=== PATIENT | male | born 1990 | race American Indian/Alaskan Native ===

== ENCOUNTER 2018-01-11 13:42 | Emergency (ER) | payer SELFPAY ==
[2018-01-11 13:48] VITALS: BP 125/73
--- NOTE | 2018-01-11 15:04 | Emergency Department Report ---
Chief Complaint: Urogenital-Male Stated Complaint: STD CHECK Time Seen by Provider: 01/11/18 14:28 - HPI History of Present Illness: Patient is a 27-year-old -[place] male who is presenting with exposure to STD. Patient states his was diagnosed with chlamydia. Patient has no symptoms himself at this time. The patient just wanted to get a checkup. - ROS Review of Systems: All systems negative except for those in HPI - Exam Vital Signs: Vital Signs 01/11/18 13:45 Temperature 98.0 F Pulse Rate 80 Respiratory 16 Rate Blood Pressure 125/73 O2 Sat by Pulse 99 Oximetry Physical Exam: Abdomen soft nontender MSE screening note: Focused history and physical exam performed. Due to findings the following was ordered: ED Disposition for MSE Clinical Impression: STD exposure Disposition: MED SCREENING EXAM-LEFT Condition: Stable Referrals: PRIMARY CARE, [Primary Care Provider] - 3-5 Days
== END 2018-01-11 14:50 | disposition left against medical advice (07) ==
LOC: ED 13:42
DX: Z20.2 Contact with and (suspected) exposure to infections with a predominantly sexual mode of transmission (principal); J45.909 Unspecified asthma, uncomplicated; E11.9 Type 2 diabetes mellitus without complications; Z53.21 Procedure and treatment not carried out due to patient leaving prior to being seen by health care provider

== ENCOUNTER 2018-10-03 08:39 | Inpatient (IN) | payer SELFPAY ==
[2018-10-03 09:26] LABS: BUN/Creatinine Ratio 12; Basophils % (Auto) 0.2 % (0.0-1.8); Blood Urea Nitrogen 15 mg/dL (9-20); Hematocrit 45.7 % (35.5-45.6); Hemolysis Index 6; Lymphocytes # (Auto) 0.8 K/mm3 (1.2-5.4); Lymphocytes % (Auto) 9.1 % (13.4-35.0); Mean Corpuscular HGB Conc 33 % (32-34); Mean Corpuscular Volume 92 fl (84-94); Monocytes # (Auto) 0.5 K/mm3 (0.0-0.8); Monocytes % (Auto) 5.8 % (0.0-7.3); Platelet Count 243 K/mm3 (140-440); Red Blood Count 4.99 M/mm3 (3.65-5.03); Red Cell Distribution Width 12.5 % (13.2-15.2)
[2018-10-03] MEDS ORDERED: D50W (25GM) Syringe IV PRN (09:27)
[2018-10-03] MEDS ORDERED: NACL 0.9% 1000 ML 1,000 ML IV ONE ×2 (09:28)
[2018-10-03] MEDS ORDERED: NACL 0.9% 1000 ML 1,000 ML ONE (09:28)
--- NOTE | 2018-10-03 09:33 | Emergency Department Report ---
ED General Adult HPI - General Chief complaint: Nausea/Vomiting/Diarrhea Stated complaint: HIGH BLOOD SUGAR Time Seen by Provider: 10/03/18 09:03 Source: patient Mode of arrival: Ambulatory Limitations: No Limitations - History of Present Illness Initial comments: Patient is 28 years old male with history of type 1 diabetes on insulin. Patient is noncompliant with his medication. Patient presented to the emergency room complaining of nausea vomiting for the last 3 days. Patient denied any chest pain, abdominal pain, diarrhea or urinary symptoms. - Related Data Home Medications Medication Instructions Recorded Confirmed Last Taken Insulin Glargine,Hum.rec.anlog 20 units SUB-Q HS 10/03/18 10/03/18 Unknown [Lantus] Insulin Lispro [HumaLOG VIAL] 10 units SUB-Q AC 10/03/18 10/03/18 Unknown Allergies Allergy/AdvReac Type Severity Reaction Status Date / Time metoclopramide [From Reglan] AdvReac panic Verified 10/03/18 11:53 attack ED Review of Systems ROS: Stated complaint: HIGH BLOOD SUGAR Other details as noted in HPI Comment: All other systems reviewed and negative Constitutional: denies: chills, fever Respiratory: denies: cough, orthopnea Cardiovascular: denies: chest pain, palpitations, dyspnea on exertion Gastrointestinal: nausea, vomiting. denies: abdominal pain, diarrhea, cons tipation, hematemesis, melena, hematochezia Musculoskeletal: denies: back pain Neurological: denies: headache, weakness, numbness, paresthesias, confusion, abnormal gait ED Past Medical Hx - Past Medical History Hx Diabetes: Yes Hx Asthma: Yes - Social History Smoking Status: Never Smoker Substance Use Type: None - Medications Home Medications: Home Medications Medication Instructions Recorded Confirmed Last Taken Type Insulin Glargine,Hum.rec.anlog 20 units SUB-Q HS 10/03/18 10/03/18 Unknown History [Lantus] Insulin Lispro [HumaLOG VIAL] 10 units SUB-Q AC 10/03/18 10/03/18 Unknown History ED Physical Exam - General Limitations: No Limitations General appearance: alert, in no apparent distress - Head Head exam: Present: atraumatic, normocephalic, normal inspection - Eye Eye exam: Present: normal appearance - ENT ENT exam: Present: mucous membranes dry - Neck Neck exam: Present: normal inspection, full ROM. Absent: tenderness, meningismus, lymphadenopathy, thyromegaly - Respiratory Respiratory exam: Present: normal lung sounds bilaterally - Cardiovascular Cardiovascular Exam: Present: regular rate, normal rhythm, normal heart sounds - GI/Abdominal GI/Abdominal exam: Present: soft, normal bowel sounds. Absent: distended, tenderness, guarding, rebound, rigid, organomegaly, mass, bruit, pulsatile mass, hernia - Extremities Exam Extremities exam: Present: normal inspection, full ROM, normal capillary refill. Absent: pedal edema, calf tenderness - Back Exam Back exam: Present: normal inspection, full ROM. Absent: tenderness, CVA tenderness (R), CVA tenderness (L), muscle spasm, paraspinal tenderness, vertebral tenderness - Neurological Exam Neurological exam: Present: alert, oriented X3, CN II-XII intact, normal gait, reflexes normal - Skin Skin exam: Present: warm, intact, normal color ED Course Vital Signs 10/03/18 10/03/18 10/03/18 08:48 09:05 09:15 Temperature 97.3 F L Pulse Rate 101 H 95 H Respiratory 18 17 Rate Blood Pressure 127/83 118/63 O2 Sat by Pulse 100 97 Oximetry 10/03/18 10/03/18 10/03/18 09:27 09:30 09:45 Temperature 97.5 F L Pulse Rate 92 H 97 H Respiratory 16 14 Rate Blood Pressure 126/66 103/57 O2 Sat by Pulse 97 77 L Oximetry 10/03/18 10/03/18 10/03/18 10:00 10:15 10:30 Temperature Pulse Rate 94 H 99 H 100 H Respiratory 14 21 19 Rate Blood Pressure 115/64 109/52 117/59 O2 Sat by Pulse 100 100 100 Oximetry 10/03/18 10/03/18 10/03/18 10:45 11:00 11:15 Temperature 98 F Pulse Rate 103 H 104 H 107 H Respiratory 16 16 15 Rate Blood Pressure 107/54 108/51 103/48 O2 Sat by Pulse 99 99 97 Oximetry 10/03/18 10/03/18 10/03/18 11:30 11:50 12:00 Temperature Pulse Rate 100 H 95 H 90 Respiratory 22 19 16 Rate Blood Pressure 109/52 97/53 97/53 O2 Sat by Pulse 98 98 100 Oximetry 01/23/19 01/23/19 01/23/19 12:10 12:20 12:30 Temperature Pulse Rate 116 H 95 H 98 H Respiratory 19 20 15 Rate Blood Pressure 130/66 130/66 130/66 O2 Sat by Pulse 98 99 99 Oximetry ED Medical Decision Making - Lab Data Result diagrams: 10/03/18 08:58 10/03/18 13:44 - Medical Decision Making Patient is 28 years old male with history of type 1 diabetes on insulin. Patient is noncompliant with his medication. Patient presented to the emergency room complaining of nausea vomiting for the last 3 days. Patient denied any chest pain, abdominal pain, diarrhea or urinary symptoms. Patient found to be in a DKA with anion gap of 37. Patient received normal saline and started on insulin drip. I discussed the patient was . He agreed to admit the patient to medical service. Critical Care Time: Yes Critical care time in (mins) excluding proc time.: 30 Critical care attestation.: If time is entered above; I have spent that time in minutes in the direct care of this critically ill patient, excluding procedure time. ED Disposition Clinical Impression: DKA (diabetic ketoacidoses) Disposition: DC-09 OP ADMIT IP TO THIS HOSP Is pt being admited?: Yes Condition: Stable
[2018-10-03] MEDS ORDERED: ZOFRAN ONE ×2 (09:37→11:09)
[2018-10-03] MEDS ORDERED: ZOFRAN IV ONE ×2 (09:41→10:54)
[2018-10-03 10:26] LABS: Albumin 4.9 g/dL (3.9-5); Bilirubin,Direct 0.2 mg/dL (0-0.2)
[2018-10-03] MEDS ORDERED: REGLAN ONE (10:46)
--- NOTE | 2018-10-03 10:56 | XRay Report ---
AP CHEST :10/03/18 08:39:00 CLINICAL: DKA COMPARISON:02/08/15 FINDINGS: Normal heart and pulmonary vasculature. The lungs are mildly hyperinflated. No airspace disease or pleural effusion. The bones and soft tissues are normal.No tubes or lines. IMPRESSION: Pulmonary hyperinflation and otherwise normal. No pneumonia.
[2018-10-03] MEDS: HumuLIN R 100 UNITS in NACL 0.9% 99 ML IV SCH ×2 (11:14→22:20)
[2018-10-03 11:20] LABS: Bilirubin,Urine NEG (Negative); Blood,Urine NEG (Negative); Color,Urine Straw (Yellow); Mucus,Urine FEW /HPF; Protein,Urine <15 mg/dL mg/dL (Negative); Urobilinogen,Urine < 2.0 mg/dL (<2.0)
[2018-10-03] MEDS ORDERED: TYLENOL PO PRN (12:32)
[2018-10-03] MEDS ORDERED: SODIUM CHLORIDE FLUSH SYRINGE 10 ML IV PRN (12:32)
--- NOTE | 2018-10-03 12:35 | History and Physical Report ---
History of Present Illness Date of admission: 10/03/18 09:48 Chief complaint: High blood glucose History of present illness: 28-year-old man with history of type 1 diabetes. He presents with nausea vomiting and elevated glucose. not able to tolerate anything by mouth, therefore unable to take his insulin, has not able to stay hydrated with water as he is nauseous. He denies nonadherence to his medications, he states that he takes his insulins regularly. He denies dysuria, cough, fevers or chills Past Medical History: diabetes Past Surgical History: No surgical history Social history: lives with family. denies: smoking, alcohol abuse Family history: diabetes Medications and Allergies Allergies Allergy/AdvReac Type Severity Reaction Status Date / Time metoclopramide [From Reglan] AdvReac panic Verified 10/03/18 11:53 attack Home Medications Medication Instructions Recorded Confirmed Last Taken Type Insulin Glargine,Hum.rec.anlog 20 units SUB-Q HS 10/03/18 10/03/18 Unknown History [Lantus] Insulin Lispro [HumaLOG VIAL] 10 units SUB-Q AC 10/03/18 10/03/18 Unknown History Active Meds: Active Medications Dextrose (D50w (25gm) Syringe) 0 ml IV PRN PRN PRN Reason: Hypoglycemia Insulin Human Regular 100 (units/ Sodium Chloride) 100 mls @ 1 mls/hr IV TITR DARVIN; Protocol Last Admin: 10/03/18 11:14 Dose: 7 units/hr, 7 mls/hr Documented by: Review of Systems All systems: negative Constitutional: fatigue Eyes: bilateral: blurred vision Ears, nose, mouth and throat: no ear pain Cardiovascular: no chest pain Respiratory: no cough Gastrointestinal: nausea, vomiting Genitourinary Male: no dysuria Rectal: no pain Musculoskeletal: no neck stiffness Integumentary: no rash Neurological: no head injury Psychiatric: no anxiety Endocrine: no cold intolerance Hematologic/Lymphatic: no easy bruising Allergic/Immunologic: no urticaria Exam - Constitutional Vitals: Temp Pulse Resp BP Pulse Ox 98 F 100 H 22 109/52 98 10/03/18 11:00 10/03/18 11:30 10/03/18 11:30 10/03/18 11:30 10/03/18 11:30 General appearance: Present: mild distress - EENT Eyes: Present: PERRL ENT: hearing intact, clear oral mucosa (dry) - Neck Neck: Present: supple, normal ROM - Respiratory Respiratory effort: normal Respiratory: bilateral: CTA - Cardiovascular Heart Sounds: Present: S1 & S2. Absent: rub, click - Extremities Extremities: pulses symmetrical, No edema Peripheral Pulses: within normal limits - Abdominal General gastrointestinal: Present: soft, non-tender, non-distended, normal bowel sounds Male genitourinary: Present: normal - Integumentary Integumentary: Present: clear, warm, dry - Musculoskeletal Musculoskeletal: gait normal, strength equal bilaterally - Psychiatric Psychiatric: appropriate mood/affect, intact judgment & insight - Neurologic Neurologic: CNII-XII intact, moves all extremities Results - Labs CBC & Chem 7: 10/03/18 08:58 10/04/18 09:42 Labs: Laboratory Last Values WBC 9.2 K/mm3 (4.5-11.0) 10/03/18 08:58 RBC 4.99 M/mm3 (3.65-5.03) 10/03/18 08:58 Hgb 15.0 gm/dl (11.8-15.2) 10/03/18 08:58 Hct 45.7 % (35.5-45.6) H 10/03/18 08:58 MCV 92 fl (84-94) 10/03/18 08:58 MCH 30 pg (28-32) 10/03/18 08:58 MCHC 33 % (32-34) 10/03/18 08:58 RDW 12.5 % (13.2-15.2) L 10/03/18 08:58 Plt Count 243 K/mm3 (140-440) 10/03/18 08:58 Lymph % (Auto) 9.1 % (13.4-35.0) L 10/03/18 08:58 [place] % (Auto) 5.8 % (0.0-7.3) 10/03/18 08:58 Eos % (Auto) 0.0 % (0.0-4.3) 10/03/18 08:58 Baso % (Auto) 0.2 % (0.0-1.8) 10/03/18 08:58 Lymph # 0.8 K/mm3 (1.2-5.4) L 10/03/18 08:58 [place] # 0.5 K/mm3 (0.0-0.8) 10/03/18 08:58 Eos # 0.0 K/mm3 (0.0-0.4) 10/03/18 08:58 Baso # 0.0 K/mm3 (0.0-0.1) 10/03/18 08:58 Seg Neutrophils % 84.9 % (40.0-70.0) H 10/03/18 08:58 Seg Neutrophils # 7.8 K/mm3 (1.8-7.7) H 10/03/18 08:58 VBG pH 7.235 (7.320-7.420) L 10/03/18 08:58 Sodium 134 mmol/L (137-145) L 10/03/18 08:58 Potassium 4.7 mmol/L (3.6-5.0) 10/03/18 08:58 Chloride 90.2 mmol/L (98-107) L 10/03/18 08:58 Carbon Dioxide 12 mmol/L (22-30) L 10/03/18 08:58 Anion Gap 37 mmol/L 10/03/18 08:58 BUN 15 mg/dL (9-20) 10/03/18 08:58 Creatinine 1.3 mg/dL (0.8-1.5) 10/03/18 08:58 Estimated GFR > 60 ml/min 10/03/18 08:58 BUN/Creatinine Ratio 12 % 10/03/18 08:58 Glucose 471 mg/dL (75-100) H 10/03/18 08:58 POC Glucose 393 (70-105) H 10/03/18 10:51 Calcium 10.0 mg/dL (8.4-10.2) 10/03/18 08:58 Phosphorus 5.20 mg/dL (2.5-4.5) H 10/03/18 08:58 Magnesium 1.70 mg/dL (1.7-2.3) 10/03/18 08:58 Total Bilirubin 0.70 mg/dL (0.1-1.2) 10/03/18 08:58 Direct Bilirubin 0.2 mg/dL (0-0.2) 10/03/18 08:58 Indirect Bilirubin 0.5 mg/dL 10/03/18 08:58 AST 14 units/L (5-40) 10/03/18 08:58 ALT 19 units/L (7-56) 10/03/18 08:58 Alkaline Phosphatase 86 units/L (35-129) 10/03/18 08:58 Total Protein 8.4 g/dL (6.3-8.2) H 10/03/18 08:58 Albumin 4.9 g/dL (3.9-5) 10/03/18 08:58 Albumin/Globulin Ratio 1.4 % 10/03/18 08:58 Urine Color Straw (Yellow) 10/03/18 10:55 Urine Turbidity Clear (Clear) 10/03/18 10:55 Urine pH 5.0 (5.0-7.0) 10/03/18 10:55 Ur Specific [place] 1.024 (1.003-1.030) 10/03/18 10:55 Urine Protein <15 mg/dl mg/dL (Negative) 10/03/18 10:55 Urine Glucose (UA) >=500 mg/dL (Negative) 10/03/18 10:55 Urine Ketones 80 mg/dL (Negative) 10/03/18 10:55 Urine Blood Neg (Negative) 10/03/18 10:55 Urine Nitrite Neg (Negative) 10/03/18 10:55 Urine Bilirubin Neg (Negative) 10/03/18 10:55 Urine Urobilinogen < 2.0 mg/dL (<2.0) 10/03/18 10:55 Ur Leukocyte Esterase Neg (Negative) 10/03/18 10:55 Urine WBC (Auto) 2.0 /HPF (0.0-6.0) 10/03/18 10:55 Urine RBC (Auto) 3.0 /HPF (0.0-6.0) 10/03/18 10:55 Urine Mucus Few /HPF 10/03/18 10:55 - Imaging and Cardiology Chest x-ray: image reviewed (no acute findings) Assessment and Plan Assessment and plan: 28-year-old man with type 1 diabetes, presents with nausea vomiting and elevated glucose Problems DKA Type 1 diabetes Intractable nausea and vomiting Plan Admit to ICU, insulin drip, IV fluids -Antiemetics as needed, obtain A1c -DVT prophylaxis chemical Critical care time 35 minutes
[2018-10-03 14:18] LABS: BUN/Creatinine Ratio 13; Blood Urea Nitrogen 17 mg/dL (9-20); Calcium 9.3 mg/dL (8.4-10.2); Hemolysis Index 22
[2018-10-03 15:27] LABS: BUN/Creatinine Ratio 13; Blood Urea Nitrogen 16 mg/dL (9-20); Calcium 9.3 mg/dL (8.4-10.2); Hemolysis Index 5
[2018-10-03] MEDS ORDERED: NACL 0.9% 1000 ML 1,000 ML IV SCH (16:00)
[2018-10-03] MEDS ORDERED: D5W/0.45% NACL/KCL 20 MEQ 20 MEQ/1,000 ML BAG IV SCH (17:00)
[2018-10-03 18:14] LABS: BUN/Creatinine Ratio 12; Blood Urea Nitrogen 16 mg/dL (9-20); Calcium 9.4 mg/dL (8.4-10.2); Hemolysis Index 25
[2018-10-03] MEDS: ZOFRAN IV PRN (18:18)
[2018-10-03] MEDS: D5/0.45NS 1,000 ML IV SCH (18:59)
[2018-10-03] MEDS: LOVENOX SUB-Q SCH (21:49)
[2018-10-04] MEDS: D5/0.45NS 1,000 ML IV SCH (01:28)
[2018-10-04] MEDS: ZOFRAN IV PRN ×3 (01:35→21:52)
[2018-10-04 03:52] LABS: BUN/Creatinine Ratio 11; Blood Urea Nitrogen 12 mg/dL (9-20); Calcium 9.8 mg/dL (8.4-10.2); Hemolysis Index 6
[2018-10-04 08:06] LABS: BUN/Creatinine Ratio 9; Blood Urea Nitrogen 11 mg/dL (9-20); Calcium 9.7 mg/dL (8.4-10.2); Hemolysis Index 15
[2018-10-04] MEDS ORDERED: LANTUS SUB-Q STA (09:52)
[2018-10-04] MEDS: SODIUM CHLORIDE FLUSH SYRINGE 10 ML IV SCH ×3 (09:54→21:49)
[2018-10-04 10:45] LABS: BUN/Creatinine Ratio 10; Blood Urea Nitrogen 11 mg/dL (9-20); Calcium 9.5 mg/dL (8.4-10.2); Hemolysis Index 5
--- NOTE | 2018-10-04 12:04 | Progress Note ---
Assessment and Plan Assessment and plan: 28-year-old man with type 1 diabetes, presents with nausea vomiting and elevated glucose Problems DKA Type 1 diabetes Intractable nausea and vomiting Plan Admit to ICU, insulin drip, IV fluids; transition to sq insulins -Antiemetics as needed, a1c 10.4 -DVT prophylaxis chemical - patient claiming he takes clonipin for PTSD, checked [employer] profile, is not on any controlled substances, called his PCP left a message with the coordinator, waiting to hear back Critical care time 35 minutes History Interval history: Review of systems Constitutional: No fevers, no malaise, no joint pains CVS: No chest pain, no orthopnea, no dyspnea on exertion, no pedal edema GI: c/o nausea and vomiting Respiratory: No shortness of breath, no wheezing, no coughing Hospitalist Physical - Physical exam Narrative exam: General.: Appears well, no distress, nontoxic HEENT: Moist mucous membranes, extraocular muscles intact, no lymphadenopathy Neck: supple Cardiac: S1-S2 heard Lungs: clear to auscultation bilaterally Abdomen: soft , nontender, nondistended, bowel sounds positive Extremities: no edema clubbing or cyanosis Skin: no rash or lesions Neurologic: no gross focal deficits Psych: calm, and cooperative - Constitutional Vitals: Temp Pulse Resp BP Pulse Ox 97 F L 91 H 15 94/55 98 10/04/18 08:00 10/04/18 09:10 10/04/18 09:10 10/04/18 09:10 10/04/18 09:10 General appearance: Present: mild distress Results - Labs CBC & Chem 7: 10/03/18 08:58 10/04/18 09:42 Labs: Laboratory Last Values WBC 9.2 K/mm3 (4.5-11.0) 10/03/18 08:58 RBC 4.99 M/mm3 (3.65-5.03) 10/03/18 08:58 Hgb 15.0 gm/dl (11.8-15.2) 10/03/18 08:58 Hct 45.7 % (35.5-45.6) H 10/03/18 08:58 MCV 92 fl (84-94) 10/03/18 08:58 MCH 30 pg (28-32) 10/03/18 08:58 MCHC 33 % (32-34) 10/03/18 08:58 RDW 12.5 % (13.2-15.2) L 10/03/18 08:58 Plt Count 243 K/mm3 (140-440) 10/03/18 08:58 Lymph % (Auto) 9.1 % (13.4-35.0) L 10/03/18 08:58 [place] % (Auto) 5.8 % (0.0-7.3) 10/03/18 08:58 Eos % (Auto) 0.0 % (0.0-4.3) 10/03/18 08:58 Baso % (Auto) 0.2 % (0.0-1.8) 10/03/18 08:58 Lymph # 0.8 K/mm3 (1.2-5.4) L 10/03/18 08:58 [place] # 0.5 K/mm3 (0.0-0.8) 10/03/18 08:58 Eos # 0.0 K/mm3 (0.0-0.4) 10/03/18 08:58 Baso # 0.0 K/mm3 (0.0-0.1) 10/03/18 08:58 Seg Neutrophils % 84.9 % (40.0-70.0) H 10/03/18 08:58 Seg Neutrophils # 7.8 K/mm3 (1.8-7.7) H 10/03/18 08:58 VBG pH 7.235 (7.320-7.420) L 10/03/18 08:58 Sodium 141 mmol/L (137-145) 10/04/18 09:42 Potassium 4.1 mmol/L (3.6-5.0) 10/04/18 09:42 Chloride 104.6 mmol/L (98-107) 10/04/18 09:42 Carbon Dioxide 19 mmol/L (22-30) L 10/04/18 09:42 Anion Gap 22 mmol/L 10/04/18 09:42 BUN 11 mg/dL (9-20) 10/04/18 09:42 Creatinine 1.1 mg/dL (0.8-1.5) 10/04/18 09:42 Estimated GFR > 60 ml/min 10/04/18 09:42 BUN/Creatinine Ratio 10 % 10/04/18 09:42 Glucose 139 mg/dL (75-100) H 10/04/18 09:42 POC Glucose 124 (70-105) H 10/04/18 07:08 Hemoglobin A1c 10.4 % (4-6) H 10/04/18 01:51 Calcium 9.5 mg/dL (8.4-10.2) 10/04/18 09:42 Phosphorus 1.60 mg/dL (2.5-4.5) L D 10/04/18 01:51 Magnesium 1.80 mg/dL (1.7-2.3) 10/04/18 01:51 Total Bilirubin 0.70 mg/dL (0.1-1.2) 10/03/18 08:58 Direct Bilirubin 0.2 mg/dL (0-0.2) 10/03/18 08:58 Indirect Bilirubin 0.5 mg/dL 10/03/18 08:58 AST 14 units/L (5-40) 10/03/18 08:58 ALT 19 units/L (7-56) 10/03/18 08:58 Alkaline Phosphatase 86 units/L (35-129) 10/03/18 08:58 Total Protein 8.4 g/dL (6.3-8.2) H 10/03/18 08:58 Albumin 4.9 g/dL (3.9-5) 10/03/18 08:58 Albumin/Globulin Ratio 1.4 % 10/03/18 08:58 Urine Color Straw (Yellow) 10/03/18 10:55 Urine Turbidity Clear (Clear) 10/03/18 10:55 Urine pH 5.0 (5.0-7.0) 10/03/18 10:55 Ur Specific [place] 1.024 (1.003-1.030) 10/03/18 10:55 Urine Protein <15 mg/dl mg/dL (Negative) 10/03/18 10:55 Urine Glucose (UA) >=500 mg/dL (Negative) 10/03/18 10:55 Urine Ketones 80 mg/dL (Negative) 10/03/18 10:55 Urine Blood Neg (Negative) 10/03/18 10:55 Urine Nitrite Neg (Negative) 10/03/18 10:55 Urine Bilirubin Neg (Negative) 10/03/18 10:55 Urine Urobilinogen < 2.0 mg/dL (<2.0) 10/03/18 10:55 Ur Leukocyte Esterase Neg (Negative) 10/03/18 10:55 Urine WBC (Auto) 2.0 /HPF (0.0-6.0) 10/03/18 10:55 Urine RBC (Auto) 3.0 /HPF (0.0-6.0) 10/03/18 10:55 Urine Mucus Few /HPF 10/03/18 10:55 Nutrition/Malnutrition Assess - Dietary Evaluation Nutrition/Malnutrition Findings: Nutrition Notes Start: 10/03/18 15:17 Freq: Status: Active Protocol: Document 10/03/18 15:18 KH (Rec: 10/03/18 15:36 [email or web address]) Co-Sign 10/03/18 15:18 OL Nutrition Notes Need for Assessment generated from: MD Order Education Initial or Follow up Brief Note Current Diagnosis Diabetes Other Pertinent Diagnosis DKA, DM type 1 Current Diet NPO Subjective/Other Information MD consult for diabetes education. Pt. not appropriate for education at this time d/ t pt. vomitting during visit. Will continue to follow Nutrition Intervention Follow-Up By: 10/04/18 Additional Comments F/u for diabetes education
[2018-10-04] MEDS ORDERED: KPHOS 15 MMOL in NACL 0.9% 250ML 250 ML IV ONE (12:30)
[2018-10-04] MEDS: HumaLOG SUB-Q SCH ×5 (13:32→21:45)
--- NOTE | 2018-10-04 14:11 | Event Note ---
Date: 10/04/18 ICU admission requested for DKA Now off IV insulin and transitioned to long acting formulation No issues otherwise A&P: - transfer to medical floor
[2018-10-04 17:53] LABS: Alanine Aminotransferase 14 units/L (7-56); Albumin 3.8 g/dL (3.9-5); BUN/Creatinine Ratio 12; Blood Urea Nitrogen 13 mg/dL (9-20); Calcium 8.6 mg/dL (8.4-10.2); Hemolysis Index 15
[2018-10-04] MEDS: LOVENOX SUB-Q SCH (21:46)
[2018-10-04] MEDS: PHOS-NAK PO SCH (21:46)
[2018-10-05] MEDS: LANTUS SUB-Q SCH ×2 (02:32→22:25)
[2018-10-05] MEDS: HumaLOG SUB-Q SCH ×6 (09:14→18:20)
[2018-10-05] MEDS: PHOS-NAK PO SCH (09:48)
[2018-10-05] MEDS ORDERED: LANTUS SUB-Q ONE (11:00)
[2018-10-05] MEDS: SODIUM CHLORIDE FLUSH SYRINGE 10 ML IV SCH ×2 (12:31→23:04)
[2018-10-05] MEDS: ZOFRAN IV PRN (14:54)
[2018-10-05] MEDS: LOVENOX SUB-Q SCH (22:21)
[2018-10-05] MEDS: PHENERGAN PR PRN (23:06)
[2018-10-06] MEDS: HumaLOG SUB-Q SCH ×8 (01:27→23:09)
[2018-10-06] MEDS: SODIUM CHLORIDE FLUSH SYRINGE 10 ML IV SCH ×2 (11:07→22:34)
[2018-10-06] MEDS: ZOFRAN IV PRN ×2 (15:22→20:49)
[2018-10-06] MEDS: PHENERGAN PR PRN ×2 (16:34→22:34)
--- NOTE | 2018-10-06 17:53 | Progress Note ---
Assessment and Plan Assessment and plan: 28-year-old man with type 1 diabetes, presents with nausea vomiting and elevated glucose Problems DKA Type 1 diabetes Intractable nausea and vomiting malingering, benzo seeking behavior Plan continue insulins, cont IVF -Antiemetics as needed, a1c 10.4 -DVT prophylaxis chemical - patient claiming he takes clonipin for PTSD, checked [employer] [facility] profile, is not on any controlled substances, called his PCP and they do not have him on it either -patient was counseled about rx drug dependence and risks of being on chronic benzos History Interval history: Review of systems Constitutional: No fevers, no malaise, no joint pains CVS: No chest pain, no orthopnea, no dyspnea on exertion, no pedal edema GI: c/o nausea and vomiting Respiratory: No shortness of breath, no wheezing, no coughing Hospitalist Physical - Physical exam Narrative exam: General.: Appears well, no distress, nontoxic HEENT: Moist mucous membranes, extraocular muscles intact, no lymphadenopathy Neck: supple Cardiac: S1-S2 heard Lungs: clear to auscultation bilaterally Abdomen: soft , nontender, nondistended, bowel sounds positive Extremities: no edema clubbing or cyanosis Skin: no rash or lesions Neurologic: no gross focal deficits Psych: calm, and cooperative - Constitutional Vitals: Temp Pulse Resp BP Pulse Ox 98.3 F 91 H 24 120/73 99 10/06/18 16:53 10/06/18 16:53 10/06/18 16:53 10/06/18 16:53 10/06/18 16:53 General appearance: Present: mild distress Results - Labs CBC & Chem 7: 10/03/18 08:58 10/05/18 00:33 Labs: Laboratory Last Values WBC 9.2 K/mm3 (4.5-11.0) 10/03/18 08:58 RBC 4.99 M/mm3 (3.65-5.03) 10/03/18 08:58 Hgb 15.0 gm/dl (11.8-15.2) 10/03/18 08:58 Hct 45.7 % (35.5-45.6) H 10/03/18 08:58 MCV 92 fl (84-94) 10/03/18 08:58 MCH 30 pg (28-32) 10/03/18 08:58 MCHC 33 % (32-34) 10/03/18 08:58 RDW 12.5 % (13.2-15.2) L 10/03/18 08:58 Plt Count 243 K/mm3 (140-440) 10/03/18 08:58 Lymph % (Auto) 9.1 % (13.4-35.0) L 10/03/18 08:58 [place] % (Auto) 5.8 % (0.0-7.3) 10/03/18 08:58 Eos % (Auto) 0.0 % (0.0-4.3) 10/03/18 08:58 Baso % (Auto) 0.2 % (0.0-1.8) 10/03/18 08:58 Lymph # 0.8 K/mm3 (1.2-5.4) L 10/03/18 08:58 [place] # 0.5 K/mm3 (0.0-0.8) 10/03/18 08:58 Eos # 0.0 K/mm3 (0.0-0.4) 10/03/18 08:58 Baso # 0.0 K/mm3 (0.0-0.1) 10/03/18 08:58 Seg Neutrophils % 84.9 % (40.0-70.0) H 10/03/18 08:58 Seg Neutrophils # 7.8 K/mm3 (1.8-7.7) H 10/03/18 08:58 VBG pH 7.235 (7.320-7.420) L 10/03/18 08:58 Sodium 134 mmol/L (137-145) L 10/04/18 17:10 Potassium 4.3 mmol/L (3.6-5.0) 10/05/18 00:33 Chloride 98.8 mmol/L (98-107) 10/04/18 17:10 Carbon Dioxide 10 mmol/L (22-30) L D 10/04/18 17:10 Anion Gap 29 mmol/L 10/04/18 17:10 BUN 13 mg/dL (9-20) 10/04/18 17:10 Creatinine 1.1 mg/dL (0.8-1.5) 10/04/18 17:10 Estimated GFR > 60 ml/min 10/04/18 17:10 BUN/Creatinine Ratio 12 % 10/04/18 17:10 Glucose 369 mg/dL (75-100) H 10/04/18 17:10 POC Glucose 243 (70-105) H 10/06/18 16:27 Hemoglobin A1c 10.4 % (4-6) H 10/04/18 01:51 Calcium 8.6 mg/dL (8.4-10.2) 10/04/18 17:10 Phosphorus 2.80 mg/dL (2.5-4.5) D 10/05/18 06:10 Magnesium 1.80 mg/dL (1.7-2.3) 10/04/18 01:51 Total Bilirubin 0.70 mg/dL (0.1-1.2) 10/04/18 17:10 Direct Bilirubin 0.2 mg/dL (0-0.2) 10/03/18 08:58 Indirect Bilirubin 0.5 mg/dL 10/03/18 08:58 AST 12 units/L (5-40) 10/04/18 17:10 ALT 14 units/L (7-56) 10/04/18 17:10 Alkaline Phosphatase 68 units/L (35-129) 10/04/18 17:10 Total Protein 6.6 g/dL (6.3-8.2) D 10/04/18 17:10 Albumin 3.8 g/dL (3.9-5) L 10/04/18 17:10 Albumin/Globulin Ratio 1.4 % 10/04/18 17:10 Urine Color Straw (Yellow) 10/03/18 10:55 Urine Turbidity Clear (Clear) 10/03/18 10:55 Urine pH 5.0 (5.0-7.0) 10/03/18 10:55 Ur Specific [place] 1.024 (1.003-1.030) 10/03/18 10:55 Urine Protein <15 mg/dl mg/dL (Negative) 10/03/18 10:55 Urine Glucose (UA) >=500 mg/dL (Negative) 10/03/18 10:55 Urine Ketones 80 mg/dL (Negative) 10/03/18 10:55 Urine Blood Neg (Negative) 10/03/18 10:55 Urine Nitrite Neg (Negative) 10/03/18 10:55 Urine Bilirubin Neg (Negative) 10/03/18 10:55 Urine Urobilinogen < 2.0 mg/dL (<2.0) 10/03/18 10:55 Ur Leukocyte Esterase Neg (Negative) 10/03/18 10:55 Urine WBC (Auto) 2.0 /HPF (0.0-6.0) 10/03/18 10:55 Urine RBC (Auto) 3.0 /HPF (0.0-6.0) 10/03/18 10:55 Urine Mucus Few /HPF 10/03/18 10:55 Nutrition/Malnutrition Assess - Dietary Evaluation Nutrition/Malnutrition Findings: Nutrition Notes Start: 10/03/18 15:17 Freq: Status: Active Protocol: Document 10/06/18 16:41 RM (Rec: 10/06/18 16:44 RM [email or web address]) Nutrition Notes Initial or Follow up Brief Note Subjective/Other Information Pt requested data analyst report writer come back tomorrow. Cold Rolling Machine Setter explained importance of diet education in helping preventing another occurance of DKA. Pt insisted data analyst report writer come back tomorrow. Nutrition Intervention Follow-Up By: 10/07/18 Additional Comments Follow diet education
--- NOTE | 2018-10-06 17:53 | Progress Note ---
Assessment and Plan Assessment and plan: 28-year-old man with type 1 diabetes, presents with nausea vomiting and elevated glucose Problems DKA Type 1 diabetes Intractable nausea and vomiting malingering, benzo seeking behavior Plan continue insulins, cont IVF -Antiemetics as needed, a1c 10.4 -DVT prophylaxis chemical - patient claiming he takes clonipin for PTSD, checked [employer] WADE profile, is not on any controlled substances, called his PCP and they do not have him on it either -patient was counseled about rx drug dependence and risks of being on chronic benzos History Interval history: Review of systems Constitutional: No fevers, no malaise, no joint pains CVS: No chest pain, no orthopnea, no dyspnea on exertion, no pedal edema GI: c/o nausea and vomiting Respiratory: No shortness of breath, no wheezing, no coughing Hospitalist Physical - Physical exam Narrative exam: General.: Appears well, no distress, nontoxic HEENT: Moist mucous membranes, extraocular muscles intact, no lymphadenopathy Neck: supple Cardiac: S1-S2 heard Lungs: clear to auscultation bilaterally Abdomen: soft , nontender, nondistended, bowel sounds positive Extremities: no edema clubbing or cyanosis Skin: no rash or lesions Neurologic: no gross focal deficits Psych: calm, and cooperative - Constitutional Vitals: Temp Pulse Resp BP Pulse Ox 98.3 F 91 H 24 120/73 99 10/06/18 16:53 10/06/18 16:53 10/06/18 16:53 10/06/18 16:53 10/06/18 16:53 General appearance: Present: mild distress Results - Labs CBC & Chem 7: 10/03/18 08:58 10/05/18 00:33 Labs: Laboratory Last Values WBC 9.2 K/mm3 (4.5-11.0) 10/03/18 08:58 RBC 4.99 M/mm3 (3.65-5.03) 10/03/18 08:58 Hgb 15.0 gm/dl (11.8-15.2) 10/03/18 08:58 Hct 45.7 % (35.5-45.6) H 10/03/18 08:58 MCV 92 fl (84-94) 10/03/18 08:58 MCH 30 pg (28-32) 10/03/18 08:58 MCHC 33 % (32-34) 10/03/18 08:58 RDW 12.5 % (13.2-15.2) L 10/03/18 08:58 Plt Count 243 K/mm3 (140-440) 10/03/18 08:58 Lymph % (Auto) 9.1 % (13.4-35.0) L 10/03/18 08:58 [place] % (Auto) 5.8 % (0.0-7.3) 10/03/18 08:58 Eos % (Auto) 0.0 % (0.0-4.3) 10/03/18 08:58 Baso % (Auto) 0.2 % (0.0-1.8) 10/03/18 08:58 Lymph # 0.8 K/mm3 (1.2-5.4) L 10/03/18 08:58 [place] # 0.5 K/mm3 (0.0-0.8) 10/03/18 08:58 Eos # 0.0 K/mm3 (0.0-0.4) 10/03/18 08:58 Baso # 0.0 K/mm3 (0.0-0.1) 10/03/18 08:58 Seg Neutrophils % 84.9 % (40.0-70.0) H 10/03/18 08:58 Seg Neutrophils # 7.8 K/mm3 (1.8-7.7) H 10/03/18 08:58 VBG pH 7.235 (7.320-7.420) L 10/03/18 08:58 Sodium 134 mmol/L (137-145) L 10/04/18 17:10 Potassium 4.3 mmol/L (3.6-5.0) 10/05/18 00:33 Chloride 98.8 mmol/L (98-107) 10/04/18 17:10 Carbon Dioxide 10 mmol/L (22-30) L D 10/04/18 17:10 Anion Gap 29 mmol/L 10/04/18 17:10 BUN 13 mg/dL (9-20) 10/04/18 17:10 Creatinine 1.1 mg/dL (0.8-1.5) 10/04/18 17:10 Estimated GFR > 60 ml/min 10/04/18 17:10 BUN/Creatinine Ratio 12 % 10/04/18 17:10 Glucose 369 mg/dL (75-100) H 10/04/18 17:10 POC Glucose 243 (70-105) H 10/06/18 16:27 Hemoglobin A1c 10.4 % (4-6) H 10/04/18 01:51 Calcium 8.6 mg/dL (8.4-10.2) 10/04/18 17:10 Phosphorus 2.80 mg/dL (2.5-4.5) D 10/05/18 06:10 Magnesium 1.80 mg/dL (1.7-2.3) 10/04/18 01:51 Total Bilirubin 0.70 mg/dL (0.1-1.2) 10/04/18 17:10 Direct Bilirubin 0.2 mg/dL (0-0.2) 10/03/18 08:58 Indirect Bilirubin 0.5 mg/dL 10/03/18 08:58 AST 12 units/L (5-40) 10/04/18 17:10 ALT 14 units/L (7-56) 10/04/18 17:10 Alkaline Phosphatase 68 units/L (35-129) 10/04/18 17:10 Total Protein 6.6 g/dL (6.3-8.2) D 10/04/18 17:10 Albumin 3.8 g/dL (3.9-5) L 10/04/18 17:10 Albumin/Globulin Ratio 1.4 % 10/04/18 17:10 Urine Color Straw (Yellow) 10/03/18 10:55 Urine Turbidity Clear (Clear) 10/03/18 10:55 Urine pH 5.0 (5.0-7.0) 10/03/18 10:55 Ur Specific [place] 1.024 (1.003-1.030) 10/03/18 10:55 Urine Protein <15 mg/dl mg/dL (Negative) 10/03/18 10:55 Urine Glucose (UA) >=500 mg/dL (Negative) 10/03/18 10:55 Urine Ketones 80 mg/dL (Negative) 10/03/18 10:55 Urine Blood Neg (Negative) 10/03/18 10:55 Urine Nitrite Neg (Negative) 10/03/18 10:55 Urine Bilirubin Neg (Negative) 10/03/18 10:55 Urine Urobilinogen < 2.0 mg/dL (<2.0) 10/03/18 10:55 Ur Leukocyte Esterase Neg (Negative) 10/03/18 10:55 Urine WBC (Auto) 2.0 /HPF (0.0-6.0) 10/03/18 10:55 Urine RBC (Auto) 3.0 /HPF (0.0-6.0) 10/03/18 10:55 Urine Mucus Few /HPF 10/03/18 10:55 Nutrition/Malnutrition Assess - Dietary Evaluation Nutrition/Malnutrition Findings: Nutrition Notes Start: 10/03/18 15:17 Freq: Status: Active Protocol: Document 10/06/18 16:41 RM (Rec: 10/06/18 16:44 RM [id number]) Nutrition Notes Initial or Follow up Brief Note Subjective/Other Information Pt requested hand sign writer come back tomorrow. Model Maker Scale explained importance of diet education in helping preventing another occurance of DKA. Pt insisted hand sign writer come back tomorrow. Nutrition Intervention Follow-Up By: 10/07/18 Additional Comments Follow diet education
[2018-10-06] MEDS ORDERED: BENADRYL IV ONE (20:20)
--- NOTE | 2018-10-06 20:36 | XRay Report ---
FINAL REPORT EXAM: XR ABDOMEN 1V AP HISTORY: Abdominal pain TECHNIQUE: Supine abdomen PRIORS: None. FINDINGS: Moderate amount of stool and gas present within the colon. No evidence of colonic or small bowel dila tation. No signs of free air. No abnormal calcifications are identified. IMPRESSION: Nonobstructive bowel gas pattern. No acute abnormality seen.
[2018-10-06] MEDS: NACL 0.9% 1000 ML 1,000 ML IV SCH (20:49)
[2018-10-06] MEDS: LOVENOX SUB-Q SCH (22:34)
[2018-10-06] MEDS: LANTUS SUB-Q SCH (23:09)
--- NOTE | 2018-10-07 07:42 | Progress Note ---
Assessment and Plan Assessment and plan: 28-year-old man with type 1 diabetes, presents with nausea vomiting and elevated glucose Problems DKA Type 1 diabetes Intractable nausea and vomiting malingering, benzo seeking behavior Plan continue insulins, cont IVF -Antiemetics as needed, a1c 10.4, likely due to gastroparesis, obtain [place] gastric emptying study -DVT prophylaxis chemical - patient claiming he takes clonipin for PTSD, checked [employer] WADE profile, is not on any controlled substances, called his PCP and they do not have him on it either -patient was counseled about rx drug dependence and risks of being on chronic benzos History Interval history: Review of systems Constitutional: No fevers, no malaise, no joint pains CVS: No chest pain, no orthopnea, no dyspnea on exertion, no pedal edema GI: c/o nausea and vomiting, RN states that he is not eating Respiratory: No shortness of breath, no wheezing, no coughing Hospitalist Physical - Physical exam Narrative exam: General.: Appears well, no distress, nontoxic HEENT: Moist mucous membranes, extraocular muscles intact, no lymphadenopathy Neck: supple Cardiac: S1-S2 heard Lungs: clear to auscultation bilaterally Abdomen: soft , nontender, nondistended, bowel sounds positive Extremities: no edema clubbing or cyanosis Skin: no rash or lesions Neurologic: no gross focal deficits Psych: calm, and cooperative - Constitutional Vitals: Temp Pulse Resp BP Pulse Ox 98.5 F 92 H 16 98/55 97 10/07/18 05:37 10/07/18 05:37 10/07/18 05:37 10/07/18 05:37 10/07/18 05:37 General appearance: Present: mild distress Results - Labs CBC & Chem 7: 10/03/18 08:58 10/05/18 00:33 Labs: Laboratory Last Values WBC 9.2 K/mm3 (4.5-11.0) 10/03/18 08:58 RBC 4.99 M/mm3 (3.65-5.03) 10/03/18 08:58 Hgb 15.0 gm/dl (11.8-15.2) 10/03/18 08:58 Hct 45.7 % (35.5-45.6) H 10/03/18 08:58 MCV 92 fl (84-94) 10/03/18 08:58 MCH 30 pg (28-32) 10/03/18 08:58 MCHC 33 % (32-34) 10/03/18 08:58 RDW 12.5 % (13.2-15.2) L 10/03/18 08:58 Plt Count 243 K/mm3 (140-440) 10/03/18 08:58 Lymph % (Auto) 9.1 % (13.4-35.0) L 10/03/18 08:58 [place] % (Auto) 5.8 % (0.0-7.3) 10/03/18 08:58 Eos % (Auto) 0.0 % (0.0-4.3) 10/03/18 08:58 Baso % (Auto) 0.2 % (0.0-1.8) 10/03/18 08:58 Lymph # 0.8 K/mm3 (1.2-5.4) L 10/03/18 08:58 [place] # 0.5 K/mm3 (0.0-0.8) 10/03/18 08:58 Eos # 0.0 K/mm3 (0.0-0.4) 10/03/18 08:58 Baso # 0.0 K/mm3 (0.0-0.1) 10/03/18 08:58 Seg Neutrophils % 84.9 % (40.0-70.0) H 10/03/18 08:58 Seg Neutrophils # 7.8 K/mm3 (1.8-7.7) H 10/03/18 08:58 VBG pH 7.235 (7.320-7.420) L 10/03/18 08:58 Sodium 134 mmol/L (137-145) L 10/04/18 17:10 Potassium 4.3 mmol/L (3.6-5.0) 10/05/18 00:33 Chloride 98.8 mmol/L (98-107) 10/04/18 17:10 Carbon Dioxide 10 mmol/L (22-30) L D 10/04/18 17:10 Anion Gap 29 mmol/L 10/04/18 17:10 BUN 13 mg/dL (9-20) 10/04/18 17:10 Creatinine 1.1 mg/dL (0.8-1.5) 10/04/18 17:10 Estimated GFR > 60 ml/min 10/04/18 17:10 BUN/Creatinine Ratio 12 % 10/04/18 17:10 Glucose 369 mg/dL (75-100) H 10/04/18 17:10 POC Glucose 208 (70-105) H 10/07/18 00:42 Hemoglobin A1c 10.4 % (4-6) H 10/04/18 01:51 Calcium 8.6 mg/dL (8.4-10.2) 10/04/18 17:10 Phosphorus 2.80 mg/dL (2.5-4.5) D 10/05/18 06:10 Magnesium 1.80 mg/dL (1.7-2.3) 10/04/18 01:51 Total Bilirubin 0.70 mg/dL (0.1-1.2) 10/04/18 17:10 Direct Bilirubin 0.2 mg/dL (0-0.2) 10/03/18 08:58 Indirect Bilirubin 0.5 mg/dL 10/03/18 08:58 AST 12 units/L (5-40) 10/04/18 17:10 ALT 14 units/L (7-56) 10/04/18 17:10 Alkaline Phosphatase 68 units/L (35-129) 10/04/18 17:10 Total Protein 6.6 g/dL (6.3-8.2) D 10/04/18 17:10 Albumin 3.8 g/dL (3.9-5) L 10/04/18 17:10 Albumin/Globulin Ratio 1.4 % 10/04/18 17:10 Urine Color Straw (Yellow) 10/03/18 10:55 Urine Turbidity Clear (Clear) 10/03/18 10:55 Urine pH 5.0 (5.0-7.0) 10/03/18 10:55 Ur Specific [place] 1.024 (1.003-1.030) 10/03/18 10:55 Urine Protein <15 mg/dl mg/dL (Negative) 10/03/18 10:55 Urine Glucose (UA) >=500 mg/dL (Negative) 10/03/18 10:55 Urine Ketones 80 mg/dL (Negative) 10/03/18 10:55 Urine Blood Neg (Negative) 10/03/18 10:55 Urine Nitrite Neg (Negative) 10/03/18 10:55 Urine Bilirubin Neg (Negative) 10/03/18 10:55 Urine Urobilinogen < 2.0 mg/dL (<2.0) 10/03/18 10:55 Ur Leukocyte Esterase Neg (Negative) 10/03/18 10:55 Urine WBC (Auto) 2.0 /HPF (0.0-6.0) 10/03/18 10:55 Urine RBC (Auto) 3.0 /HPF (0.0-6.0) 10/03/18 10:55 Urine Mucus Few /HPF 10/03/18 10:55 Nutrition/Malnutrition Assess - Dietary Evaluation Nutrition/Malnutrition Findings: Nutrition Notes Start: 10/03/18 15:17 Freq: Status: Active Protocol: Document 10/06/18 16:41 RM (Rec: 10/06/18 16:44 RM [id number]) Nutrition Notes Initial or Follow up Brief Note Subjective/Other Information Pt requested chart writer come back tomorrow. Attraction Worker explained importance of diet education in helping preventing another occurance of DKA. Pt insisted chart writer come back tomorrow. Nutrition Intervention Follow-Up By: 10/07/18 Additional Comments Follow diet education
[2018-10-07] MEDS: NACL 0.9% 1000 ML 1,000 ML IV SCH ×2 (08:38→21:40)
[2018-10-07] MEDS: HumaLOG SUB-Q SCH ×7 (09:04→21:47)
[2018-10-07] MEDS: SODIUM CHLORIDE FLUSH SYRINGE 10 ML IV SCH ×2 (13:14→21:46)
[2018-10-07] MEDS: PHENERGAN PR PRN (20:33)
[2018-10-07] MEDS ORDERED: BENADRYL IV ONE (20:52)
[2018-10-07] MEDS: LANTUS SUB-Q SCH (21:42)
[2018-10-07] MEDS: LOVENOX SUB-Q SCH (21:46)
[2018-10-08] MEDS: NACL 0.9% 1000 ML 1,000 ML IV SCH ×2 (09:06→17:55)
[2018-10-08] MEDS: HumaLOG SUB-Q SCH ×7 (09:07→22:31)
[2018-10-08] MEDS: SODIUM CHLORIDE FLUSH SYRINGE 10 ML IV SCH ×2 (09:08→22:31)
--- NOTE | 2018-10-08 13:18 | Progress Note ---
Assessment and Plan Assessment and plan: 28-year-old man with type 1 diabetes, presents with nausea vomiting and elevated glucose Problems DKA Type 1 diabetes Intractable nausea and vomiting malingering, benzo seeking behavior Plan continue insulins, cont IVF -Antiemetics as needed, a1c 10.4, due to gastroparesis, NM gastric emptying study confirms it -ADAT -DVT prophylaxis chemical - patient claiming he takes clonipin for PTSD, checked [employer] WADE profile, is not on any controlled substances, called his PCP and they do not have him on it either -patient was counseled about rx drug dependence and risks of being on chronic benzos History Interval history: Review of systems Constitutional: No fevers, no malaise, no joint pains CVS: No chest pain, no orthopnea, no dyspnea on exertion, no pedal edema GI: c/o nausea and vomiting, RN states that he is not eating Respiratory: No shortness of breath, no wheezing, no coughing Hospitalist Physical - Physical exam Narrative exam: General.: Appears well, no distress, nontoxic HEENT: Moist mucous membranes, extraocular muscles intact, no lymphadenopathy Neck: supple Cardiac: S1-S2 heard Lungs: clear to auscultation bilaterally Abdomen: soft , nontender, nondistended, bowel sounds positive Extremities: no edema clubbing or cyanosis Skin: no rash or lesions Neurologic: no gross focal deficits Psych: calm, and cooperative - Constitutional Vitals: Temp Pulse Resp BP Pulse Ox 98.4 F 84 20 113/67 78 L 10/08/18 05:32 10/08/18 05:32 10/08/18 05:32 10/08/18 05:32 10/08/18 05:32 General appearance: Present: mild distress Results - Labs CBC & Chem 7: 10/03/18 08:58 10/05/18 00:33 Labs: Laboratory Last Values WBC 9.2 K/mm3 (4.5-11.0) 10/03/18 08:58 RBC 4.99 M/mm3 (3.65-5.03) 10/03/18 08:58 Hgb 15.0 gm/dl (11.8-15.2) 10/03/18 08:58 Hct 45.7 % (35.5-45.6) H 10/03/18 08:58 MCV 92 fl (84-94) 10/03/18 08:58 MCH 30 pg (28-32) 10/03/18 08:58 MCHC 33 % (32-34) 10/03/18 08:58 RDW 12.5 % (13.2-15.2) L 10/03/18 08:58 Plt Count 243 K/mm3 (140-440) 10/03/18 08:58 Lymph % (Auto) 9.1 % (13.4-35.0) L 10/03/18 08:58 [place] % (Auto) 5.8 % (0.0-7.3) 10/03/18 08:58 Eos % (Auto) 0.0 % (0.0-4.3) 10/03/18 08:58 Baso % (Auto) 0.2 % (0.0-1.8) 10/03/18 08:58 Lymph # 0.8 K/mm3 (1.2-5.4) L 10/03/18 08:58 [place] # 0.5 K/mm3 (0.0-0.8) 10/03/18 08:58 Eos # 0.0 K/mm3 (0.0-0.4) 10/03/18 08:58 Baso # 0.0 K/mm3 (0.0-0.1) 10/03/18 08:58 Seg Neutrophils % 84.9 % (40.0-70.0) H 10/03/18 08:58 Seg Neutrophils # 7.8 K/mm3 (1.8-7.7) H 10/03/18 08:58 VBG pH 7.235 (7.320-7.420) L 10/03/18 08:58 Sodium 134 mmol/L (137-145) L 10/04/18 17:10 Potassium 4.3 mmol/L (3.6-5.0) 10/05/18 00:33 Chloride 98.8 mmol/L (98-107) 10/04/18 17:10 Carbon Dioxide 10 mmol/L (22-30) L D 10/04/18 17:10 Anion Gap 29 mmol/L 10/04/18 17:10 BUN 13 mg/dL (9-20) 10/04/18 17:10 Creatinine 1.1 mg/dL (0.8-1.5) 10/04/18 17:10 Estimated GFR > 60 ml/min 10/04/18 17:10 BUN/Creatinine Ratio 12 % 10/04/18 17:10 Glucose 369 mg/dL (75-100) H 10/04/18 17:10 POC Glucose 202 (70-105) H 10/08/18 10:35 Hemoglobin A1c 10.4 % (4-6) H 10/04/18 01:51 Calcium 8.6 mg/dL (8.4-10.2) 10/04/18 17:10 Phosphorus 2.80 mg/dL (2.5-4.5) D 10/05/18 06:10 Magnesium 1.80 mg/dL (1.7-2.3) 10/04/18 01:51 Total Bilirubin 0.70 mg/dL (0.1-1.2) 10/04/18 17:10 Direct Bilirubin 0.2 mg/dL (0-0.2) 10/03/18 08:58 Indirect Bilirubin 0.5 mg/dL 10/03/18 08:58 AST 12 units/L (5-40) 10/04/18 17:10 ALT 14 units/L (7-56) 10/04/18 17:10 Alkaline Phosphatase 68 units/L (35-129) 10/04/18 17:10 Total Protein 6.6 g/dL (6.3-8.2) D 10/04/18 17:10 Albumin 3.8 g/dL (3.9-5) L 10/04/18 17:10 Albumin/Globulin Ratio 1.4 % 10/04/18 17:10 Urine Color Straw (Yellow) 10/03/18 10:55 Urine Turbidity Clear (Clear) 10/03/18 10:55 Urine pH 5.0 (5.0-7.0) 10/03/18 10:55 Ur Specific [place] 1.024 (1.003-1.030) 10/03/18 10:55 Urine Protein <15 mg/dl mg/dL (Negative) 10/03/18 10:55 Urine Glucose (UA) >=500 mg/dL (Negative) 10/03/18 10:55 Urine Ketones 80 mg/dL (Negative) 10/03/18 10:55 Urine Blood Neg (Negative) 10/03/18 10:55 Urine Nitrite Neg (Negative) 10/03/18 10:55 Urine Bilirubin Neg (Negative) 10/03/18 10:55 Urine Urobilinogen < 2.0 mg/dL (<2.0) 10/03/18 10:55 Ur Leukocyte Esterase Neg (Negative) 10/03/18 10:55 Urine WBC (Auto) 2.0 /HPF (0.0-6.0) 10/03/18 10:55 Urine RBC (Auto) 3.0 /HPF (0.0-6.0) 10/03/18 10:55 Urine Mucus Few /HPF 10/03/18 10:55 Nutrition/Malnutrition Assess - Dietary Evaluation Nutrition/Malnutrition Findings: Nutrition Notes Start: 10/03/18 15:17 Freq: Status: Active Protocol: Document 10/07/18 14:44 RM (Rec: 10/07/18 14:48 RM [id number]) Nutrition Notes Initial or Follow up Assessment Current Diagnosis Diabetes Other Pertinent Diagnosis DKA, DM, N/V Current Diet Consistent CHO Labs/Tests Reviewed Pertinent Medications Reviewed Height 6 ft 5 in Weight 83.5 kg Usual Body Weight 88.64 kg [place] Body Weight (kg) 94.54 BMI 21.8 Subjective/Other Information Pt stated that he has not eaten since admission d/t vomiting. Stated he cannot keep down solid food. Admitted to constipation. Stated UBW is 195 lbs but cannot recall when he saw that he weighed that. Pt stated that he had been previously educated but could not recall carbohydrate counting. Reviewed carbohydrate counting. Gave handout. Percent of energy/protein needs met: 0%/0% Burn Absent Trauma Absent #2 Nutrition Diagnosis Inadequate oral intake Etiology N/V As Evidenced by Signs and Symptoms pt statement that he has not eaten since admission #1 Nutrition Diagnosis Food and nutrition-related knowledge deficit Etiology inability to recall previous education As Evidenced by Signs and Symptoms pt desire for education Is patient on ventilator? No Is Patient Ambulatory and/or Out of Bed Yes REE-([facility]-ambulatory/OOB) [ [id number]] Calculation Used for Recommendations [facility] Additional Notes Protein Needs: 67-84g (0.8-1g/ kg) Fluid Needs: 1 ml/kcal Nutrition Intervention Change Diet Order: Clear liquid Add Supplement/Snack (indicate name/kcal Ensure Clear 1 daily /protein ) Provides kCal: 240 Provides Protein (gm) 8 Teaching Recipient Patient Learning Readiness Good Teaching Methods Discussion Handout Response to Teaching Verbalize understanding Education Handouts Provided Carbohydrate Counting for People with Diabetes Barriers to Learning No Barriers RD phone number provided Yes Patient aware of follow up options Yes Goal #1 PO tolerance Goal #2 Meet at least 75% of calorie and protein needs via PO and ONS intakes Anticipated Discharge Needs: unable to determine at this time Follow-Up By: 10/09/18 Additional Comments Follow for PO and ONS intakes
--- NOTE | 2018-10-08 13:48 | Nuclear Medicine Report ---
Gastric emptying scan: Diabetic with intractable nausea and vomiting. Following oral ingestion of technetium 99m sulfur colloid tagged oatmeal this patient demonstrated a one half gastric emptying time of greater than 90 minutes. Only 4% of the gastric content emptying during the 90 minute observation period Impression: Abnormal exam.
[2018-10-08] MEDS: PROTONIX IV SCH (13:54)
[2018-10-08] MEDS: ZOFRAN IV PRN (17:55)
[2018-10-08] MEDS ORDERED: BENADRYL IV ONE (21:29)
[2018-10-08] MEDS: LOVENOX SUB-Q SCH (22:29)
[2018-10-08] MEDS: PHENERGAN PR PRN (22:30)
[2018-10-08] MEDS: LANTUS SUB-Q SCH (22:30)
[2018-10-09] MEDS: ZOFRAN IV PRN (08:36)
[2018-10-09] MEDS: HumaLOG SUB-Q SCH ×7 (09:34→21:31)
[2018-10-09] MEDS: PROTONIX IV SCH (09:34)
[2018-10-09] MEDS: SODIUM CHLORIDE FLUSH SYRINGE 10 ML IV SCH ×2 (12:11→21:29)
[2018-10-09] MEDS: NACL 0.9% 1000 ML 1,000 ML IV SCH (12:40)
--- NOTE | 2018-10-09 15:57 | Progress Note ---
Assessment and Plan Assessment and plan: 28-year-old man with type 1 diabetes, presents with nausea vomiting and elevated glucose Problems DKA Type 1 diabetes Intractable nausea and vomiting , benzo seeking behavior Plan continue insulins, cont IVF -Antiemetics as needed, a1c 10.4, due to gastroparesis, NM gastric emptying study confirms it -NPO now, then ADAT -DVT prophylaxis chemical - patient claiming he takes clonipin for PTSD, checked [employer] SUPERVIS[employer] WADE profile, is not on any controlled substances, called his PCP and they do not have him on it either -patient was counseled about rx drug dependence and risks of being on chronic benzos History Interval history: Review of systems Constitutional: No fevers, no malaise, no joint pains CVS: No chest pain, no orthopnea, no dyspnea on exertion, no pedal edema GI: c/o nausea and vomiting, RN states that he is not eating Respiratory: No shortness of breath, no wheezing, no coughing Hospitalist Physical - Physical exam Narrative exam: General.: Appears well, no distress, nontoxic HEENT: Moist mucous membranes, extraocular muscles intact, no lymphadenopathy Neck: supple Cardiac: S1-S2 heard Lungs: clear to auscultation bilaterally Abdomen: soft , nontender, nondistended, bowel sounds positive Extremities: no edema clubbing or cyanosis Skin: no rash or lesions Neurologic: no gross focal deficits Psych: calm, and cooperative - Constitutional Vitals: Temp Pulse Resp BP Pulse Ox 98.8 F 99 H 14 110/65 98 10/09/18 12:30 10/09/18 12:30 10/09/18 12:30 10/09/18 12:30 10/09/18 12:30 General appearance: Present: mild distress Results - Labs CBC & Chem 7: 10/03/18 08:58 10/05/18 00:33 Labs: Laboratory Last Values WBC 9.2 K/mm3 (4.5-11.0) 10/03/18 08:58 RBC 4.99 M/mm3 (3.65-5.03) 10/03/18 08:58 Hgb 15.0 gm/dl (11.8-15.2) 10/03/18 08:58 Hct 45.7 % (35.5-45.6) H 10/03/18 08:58 MCV 92 fl (84-94) 10/03/18 08:58 MCH 30 pg (28-32) 10/03/18 08:58 MCHC 33 % (32-34) 10/03/18 08:58 RDW 12.5 % (13.2-15.2) L 10/03/18 08:58 Plt Count 243 K/mm3 (140-440) 10/03/18 08:58 Lymph % (Auto) 9.1 % (13.4-35.0) L 10/03/18 08:58 [place] % (Auto) 5.8 % (0.0-7.3) 10/03/18 08:58 Eos % (Auto) 0.0 % (0.0-4.3) 10/03/18 08:58 Baso % (Auto) 0.2 % (0.0-1.8) 10/03/18 08:58 Lymph # 0.8 K/mm3 (1.2-5.4) L 10/03/18 08:58 [place] # 0.5 K/mm3 (0.0-0.8) 10/03/18 08:58 Eos # 0.0 K/mm3 (0.0-0.4) 10/03/18 08:58 Baso # 0.0 K/mm3 (0.0-0.1) 10/03/18 08:58 Seg Neutrophils % 84.9 % (40.0-70.0) H 10/03/18 08:58 Seg Neutrophils # 7.8 K/mm3 (1.8-7.7) H 10/03/18 08:58 VBG pH 7.235 (7.320-7.420) L 10/03/18 08:58 Sodium 134 mmol/L (137-145) L 10/04/18 17:10 Potassium 4.3 mmol/L (3.6-5.0) 10/05/18 00:33 Chloride 98.8 mmol/L (98-107) 10/04/18 17:10 Carbon Dioxide 10 mmol/L (22-30) L D 10/04/18 17:10 Anion Gap 29 mmol/L 10/04/18 17:10 BUN 13 mg/dL (9-20) 10/04/18 17:10 Creatinine 1.1 mg/dL (0.8-1.5) 10/04/18 17:10 Estimated GFR > 60 ml/min 10/04/18 17:10 BUN/Creatinine Ratio 12 % 10/04/18 17:10 Glucose 369 mg/dL (75-100) H 10/04/18 17:10 POC Glucose 124 (70-105) H 10/09/18 11:34 Hemoglobin A1c 10.4 % (4-6) H 10/04/18 01:51 Calcium 8.6 mg/dL (8.4-10.2) 10/04/18 17:10 Phosphorus 2.80 mg/dL (2.5-4.5) D 10/05/18 06:10 Magnesium 1.80 mg/dL (1.7-2.3) 10/04/18 01:51 Total Bilirubin 0.70 mg/dL (0.1-1.2) 10/04/18 17:10 Direct Bilirubin 0.2 mg/dL (0-0.2) 10/03/18 08:58 Indirect Bilirubin 0.5 mg/dL 10/03/18 08:58 AST 12 units/L (5-40) 10/04/18 17:10 ALT 14 units/L (7-56) 10/04/18 17:10 Alkaline Phosphatase 68 units/L (35-129) 10/04/18 17:10 Total Protein 6.6 g/dL (6.3-8.2) D 10/04/18 17:10 Albumin 3.8 g/dL (3.9-5) L 10/04/18 17:10 Albumin/Globulin Ratio 1.4 % 10/04/18 17:10 Urine Color Straw (Yellow) 10/03/18 10:55 Urine Turbidity Clear (Clear) 10/03/18 10:55 Urine pH 5.0 (5.0-7.0) 10/03/18 10:55 Ur Specific [place] 1.024 (1.003-1.030) 10/03/18 10:55 Urine Protein <15 mg/dl mg/dL (Negative) 10/03/18 10:55 Urine Glucose (UA) >=500 mg/dL (Negative) 10/03/18 10:55 Urine Ketones 80 mg/dL (Negative) 10/03/18 10:55 Urine Blood Neg (Negative) 10/03/18 10:55 Urine Nitrite Neg (Negative) 10/03/18 10:55 Urine Bilirubin Neg (Negative) 10/03/18 10:55 Urine Urobilinogen < 2.0 mg/dL (<2.0) 10/03/18 10:55 Ur Leukocyte Esterase Neg (Negative) 10/03/18 10:55 Urine WBC (Auto) 2.0 /HPF (0.0-6.0) 10/03/18 10:55 Urine RBC (Auto) 3.0 /HPF (0.0-6.0) 10/03/18 10:55 Urine Mucus Few /HPF 10/03/18 10:55 Nutrition/Malnutrition Assess - Dietary Evaluation Nutrition/Malnutrition Findings: Nutrition Notes Start: 10/03/18 15:17 Freq: Status: Active Protocol: Document 10/09/18 15:19 RM (Rec: 10/09/18 15:22 RM [id number]) Nutrition Notes Initial or Follow up Brief Note Current Diet Clear liquid Subjective/Other Information Diet replaced with duplicate of previous diet and Ensure Clear not carried over. Pt stated that he has not been drinking his meals d/t not being able to keep them down. Stated he has not received Ensure Clear. Nutrition Intervention Add Supplement/Snack (indicate name/kcal Ensure Clear 1 daily /protein ) Provides kCal: 240 Provides Protein (gm) 8 Follow-Up By: 10/11/18 Additional Comments Linda for PO and ONS intakes
[2018-10-09] MEDS ORDERED: D5/0.45NS 1,000 ML IV SCH (18:00)
[2018-10-09] MEDS: LOVENOX SUB-Q SCH (21:29)
[2018-10-09] MEDS: LANTUS SUB-Q SCH (22:40)
[2018-10-10] MEDS: HumaLOG SUB-Q SCH ×6 (07:30→16:30)
[2018-10-10] MEDS ORDERED: PROTONIX PO SCH (10:00)
--- NOTE | 2018-10-10 12:17 | Discharge Summary ---
Providers - Providers Date of Admission: 10/03/18 09:48 Attending physician: ALICIA BARRIGA MD 10/03/18 09:52 Consult to Physician [CONS] Stat Comment: Consulting Provider: KAY RESTREPO Physician Instructions: Reason For Exam: DKA 10/03/18 12:32 Consult to Dietitian/Nutrition [CONS] Routine Physician Instructions: Reason For Exam: DKA Reason for Consult: Nutrition Recommendations Reason for Consult: Diet education Primary care physician: FURNITURE PACKER Hospitalization Condition: Stable Hospital course: 28-year-old man with type 1 diabetes, presents with nausea vomiting and elevated glucose Problems DKA Type 1 diabetes, uncontrolled, A1c 10.4 Intractable nausea and vomiting , benzo seeking behavior hospital course He was treated with insulin drip, then transitioned to subcutaneous insulin -Nuclear medicine gastric emptying study confirmed severe gastroparesis -He was treated with IV fluids and antiemetics, diet was advanced slowly as tolerated - patient claiming he takes clonipin for PTSD, checked [employer] profile, is not on any controlled substances, called his PCP and they do not have him on it either -patient was counseled about rx drug dependence and risks of being on chronic benzos Disposition: DC-01 TO HOME OR SELFCARE Time spent for discharge: 33 mins Core Measure Documentation - Palliative Care Palliative Care/ Comfort Measures: Not Applicable - Core Measures Any of the following diagnoses?: none Exam - Constitutional Vitals: Temp Pulse Resp BP Pulse Ox 98.9 F 77 20 137/70 99 10/10/18 04:37 10/10/18 04:37 10/10/18 04:37 10/10/18 04:37 10/10/18 04:37 General appearance: Present: no acute distress, well-nourished - EENT Eyes: Present: PERRL ENT: hearing intact, clear oral mucosa - Neck Neck: Present: supple, normal ROM - Respiratory Respiratory effort: normal Respiratory: bilateral: CTA - Cardiovascular Heart Sounds: Present: S1 & S2. Absent: rub, click - Extremities Extremities: pulses symmetrical, No edema Peripheral Pulses: within normal limits - Abdominal General gastrointestinal: Present: soft, non-tender, non-distended, normal bowel sounds Male genitourinary: Present: normal - Integumentary Integumentary: Present: clear, warm, dry - Musculoskeletal Musculoskeletal: gait normal, strength equal bilaterally - Psychiatric Psychiatric: appropriate mood/affect, intact judgment & insight - Neurologic Neurologic: CNII-XII intact, moves all extremities Plan Follow up with: PRIMARY CARE,MD [Primary Care Provider] - 7 Days Prescriptions: RX: Insulin Glargine,Hum.rec.anlog [Lantus] 24 units SUB-Q HS #1 vial RX: Insulin Lispro [HumaLOG VIAL] 0 units SQ AC #1 vial Ondansetron [Zofran ODT TAB] 8 mg PO Q8H PRN #90 tab.rapdis PRN Reason: Nausea Pantoprazole [Protonix] 40 mg PO QDAY #30 tablet
[2018-10-10] MEDS: SODIUM CHLORIDE FLUSH SYRINGE 10 ML IV SCH (13:10)
[2018-10-10 18:49] VITALS: BP 134/85
== END 2018-10-10 18:40 | disposition home or self-care (01) | DRG 74 ==
LOC: ED 08:39 → CC1 09:48 → 3A 10-04 18:14
PROVIDERS: ADMIT Internal Medicine; ATTEND Internal Medicine
DX: E10.43 Type 1 diabetes mellitus with diabetic autonomic (poly)neuropathy (principal); E10.10 Type 1 diabetes mellitus with ketoacidosis without coma; J45.909 Unspecified asthma, uncomplicated; K31.84 Gastroparesis; Z83.3 Family history of diabetes mellitus; Z88.8 Allergy status to other drugs, medicaments and biological substances; Z79.4 Long term (current) use of insulin; Z76.5 Malingerer [conscious simulation]; Z71.89 Other specified counseling
CPT/HCPCS: 36415; 71045; 74018; 78264; 80048; 80053; 80076; 81001; 82805; 82962; 83036; 83735; 84100; 84132; 85025; G0378; A9541; C9113; J1200; J1650; J1815; J2405; J2765; J7030; J7050

== ENCOUNTER 2019-11-06 10:04 | Emergency (ER) | payer SELFPAY ==
[2019-11-06] MEDS ORDERED: SODIUM CHLORIDE 0.9% 1000 ML 1,000 ML IV ONE ×2 (10:25→12:48)
[2019-11-06] MEDS ORDERED: FAMOTIDINE 20 MG/2 ML INJ IV ONE (10:50)
[2019-11-06] MEDS ORDERED: HALOPERIDOL LACTATE 5 MG/1 ML INJ IM STA (10:50)
--- NOTE | 2019-11-06 10:51 | Emergency Department Report ---
ED General Adult HPI - General Chief complaint: Nausea/Vomiting/Diarrhea Stated complaint: DIABETIC/VOMITING Time Seen by Provider: 11/06/19 10:33 Source: patient, RN notes reviewed, old records reviewed Mode of arrival: Wheelchair Limitations: No Limitations - History of Present Illness Initial comments: The patient is a 29-year-old gentleman. He is not known to myself previously. He reports that he goes to [facility] for his primary care. His past medical history includes type 1 diabetes, hyperglycemia, poorly controlled type 1 diabetes, with a recent hemoglobin A1c of 10.4, nuclear medicine study confirmed gastroparesis, and possible substance abuse. He also consumes recreational marijuana. He presents to the ER with a complaint of nontraumatic diffuse abdominal cramping and discomfort, nausea and vomiting. He reports his symptoms started this morning. He reports they are constant. He does not believe they have relieving factors. They worsen when he attempts to eat or drink. He denies irritative and obstructive urinary symptoms. He denies focal extremity weakness and/or numbness. The patient does indicate he consumes recreational marijuana. He is medicated with haloperidol and Pepcid in the emergency room, which markedly improved his symptoms. -: Gradual, hour(s) Location: abdomen Radiation: non-radiation Improves with: other Worsens with: other Associated Symptoms: other - Related Data Previous Rx's Medication Instructions Recorded Last Taken Type Insulin Glargine,Hum.rec.anlog 24 units SUB-Q HS #1 vial 10/08/18 Unknown Rx [Lantus] Insulin Lispro [HumaLOG VIAL] 0 units SQ AC #1 vial 10/08/18 Unknown Rx Ondansetron [Zofran ODT TAB] 8 mg PO Q8H PRN #90 tab.rapdis 10/08/18 Unknown Rx Isadora Root [Isadora] 250 mg PO QID PRN #30 capsule 11/06/19 Unknown Rx Metoclopramide [Reglan] 10 mg PO QID PRN #30 tab 11/06/19 Unknown Rx Pantoprazole [Protonix TAB] 40 mg PO QDAY #30 tablet 11/06/19 Unknown Rx Promethazine [Phenergan] 25 mg [place] Q6HR PRN #15 supp.rect 11/06/19 Unknown Rx Allergies Allergy/AdvReac Type Severity Reaction Status Date / Time metoclopramide [From Reglan] AdvReac panic Verified 10/03/18 11:53 attack ED Review of Systems ROS: Stated complaint: DIABETIC/VOMITING Other details as noted in HPI Constitutional: malaise Eyes: denies: eye discharge ENT: denies: congestion Respiratory: denies: wheezing Cardiovascular: denies: syncope Gastrointestinal: abdominal pain, nausea, vomiting Genitourinary: denies: dysuria Musculoskeletal: as per HPI Skin: as per HPI Neurological: weakness Psychiatric: as per HPI, anxiety Hematological/Lymphatic: as per HPI ED Past Medical Hx - Past Medical History Previous Medical History?: Yes Hx Congestive Heart Failure: Yes Hx Diabetes: Yes (Type I) Hx Asthma: Yes Hx COPD: No Hx HIV: No Additional medical history: Gastroparesis - Surgical History Hx Open Heart Surgery: No Hx Cholecystectomy: No Hx Appendectomy: No Hx Breast Surgery: No - Social History Smoking Status: Never Smoker - Medications Home Medications: Home Medications Medication Instructions Recorded Confirmed Last Taken Type Insulin Glargine,Hum.rec.anlog 24 units SUB-Q HS #1 vial 10/08/18 Unknown Rx [Lantus] Insulin Lispro [HumaLOG VIAL] 0 units SQ AC #1 vial 10/08/18 Unknown Rx Ondansetron [Zofran ODT TAB] 8 mg PO Q8H PRN #90 tab.rapdis 10/08/18 Unknown Rx Isadora Root [Isadora] 250 mg PO QID PRN #30 capsule 11/06/19 Unknown Rx Metoclopramide [Reglan] 10 mg PO QID PRN #30 tab 11/06/19 Unknown Rx Pantoprazole [Protonix TAB] 40 mg PO QDAY #30 tablet 11/06/19 Unknown Rx Promethazine [Phenergan] 25 mg OH Q6HR PRN #15 supp.rect 11/06/19 Unknown Rx ED Physical Exam - General Limitations: No Limitations General appearance: alert, anxious, in distress - Head Head exam: Present: atraumatic, normocephalic - Eye Eye exam: Present: normal appearance, EOMI. Absent: nystagmus - ENT ENT exam: Present: normal exam, normal orophraynx, mucous membranes moist, normal external ear exam - Neck Neck exam: Present: normal inspection, full ROM. Absent: tenderness, meningismus - Respiratory Respiratory exam: Present: normal lung sounds bilaterally. Absent: respiratory distress - Cardiovascular Cardiovascular Exam: Present: regular rate, normal rhythm, normal heart sounds. Absent: bradycardia, tachycardia, irregular rhythm, systolic murmur, diastolic murmur, rubs, gallop - GI/Abdominal GI/Abdominal exam: Present: soft, other (There is no rebound, guarding or pe ritoneal sign. There is no right lower quadrant tenderness. There is no right upper quadrant tenderness. There is negative Rovsing sign. There is negative Talamantes sign.). Absent: distended, tenderness, guarding, rebound, rigid, pulsatile mass - Rectal Rectal exam: Present: deferred - Extremities Exam Extremities exam: Present: normal inspection, full ROM, other (2+ pulses noted in the bilateral upper and lower extremities. There is no palpable cord. negative Homans sign. Muscular compartments are soft. The pelvis is stable.). Absent: tenderness, calf tenderness - Back Exam Back exam: Present: normal inspection, full ROM. Absent: tenderness, CVA tenderness (R), CVA tenderness (L), paraspinal tenderness, vertebral tenderness - Neurological Exam Neurological exam: Present: alert, other (There is no facial droop. The tongue is midline. Extraocular movements are intact bilaterally. There is 5 out of 5 strength in bilateral upper and lower extremities. Sensation is intact to light touch bilateral upper and lower extremities. ). Absent: motor sensory deficit - Psychiatric Psychiatric exam: Present: anxious - Skin Skin exam: Present: warm, dry, intact, normal color. Absent: rash ED Course Vital Signs 11/06/19 11/06/19 11/06/19 10:12 10:56 11:00 Temperature 98 F Pulse Rate 74 71 Respiratory 16 16 12 Rate Blood Pressure 132/80 Blood Pressure 132/72 [Right] O2 Sat by Pulse 97 100 99 Oximetry 11/06/19 11/06/19 11/06/19 11:28 12:00 13:00 Temperature Pulse Rate 71 78 91 H Respiratory 13 16 17 Rate Blood Pressure 132/80 117/57 118/51 Blood Pressure [Right] O2 Sat by Pulse 99 99 100 Oximetry - Reevaluation(s) Reevaluation #1: 11/06/19 13:30 Hyperglycemia improved. Vomiting resolved. Patient will be discharged. ED Medical Decision Making - Lab Data Result diagrams: 11/06/19 11:03 11/06/19 11:03 Vital Signs 11/06/19 11/06/19 11/06/19 10:12 10:56 11:28 Temperature 98 F Pulse Rate 74 71 Respiratory 16 16 13 Rate Blood Pressure 132/80 Blood Pressure 132/72 [Right] O2 Sat by Pulse 97 100 99 Oximetry Lab Results 11/06/19 11/06/19 11/06/19 Range/Units 10:19 11:03 11:03 WBC 6.9 (4.5-11.0) K/mm3 RBC 4.97 (3.65-5.03) M/mm3 Hgb 14.8 (11.8-15.2) gm/dl Hct 44.7 (35.5-45.6) % MCV 90 (84-94) fl MCH 30 (28-32) pg MCHC 33 (32-34) % RDW 12.5 L (13.2-15.2) % Plt Count 217 (140-440) K/mm3 VBG pH (7.320-7.420) Sodium 137 (137-145) mmol/L Potassium 4.6 (3.6-5.0) mmol/L Chloride 99.8 (98-107) mmol/L Carbon Dioxide 21 L (22-30) mmol/L Anion Gap 21 mmol/L BUN 11 (9-20) mg/dL Creatinine 0.9 (0.8-1.5) mg/dL Estimated GFR > 60 ml/min BUN/Creatinine Ratio 12 % Glucose 402 H (75-100) mg/dL POC Glucose 364 H (70-105) Calcium 9.7 (8.4-10.2) mg/dL Magnesium 1.70 (1.7-2.3) mg/dL Total Bilirubin 0.30 (0.1-1.2) mg/dL AST 25 (5-40) units/L ALT 28 (7-56) units/L Alkaline Phosphatase 91 (35-129) units/L Total Creatine Kinase 204 H (55-170) units/L Total Protein 8.1 (6.3-8.2) g/dL Albumin 4.5 (3.9-5) g/dL Albumin/Globulin Ratio 1.3 % Lipase (13-60) units/L 11/06/19 11/06/19 11/06/19 Range/Units 11:03 11:03 12:20 WBC (4.5-11.0) K/mm3 RBC (3.65-5.03) M/mm3 Hgb (11.8-15.2) gm/dl Hct (35.5-45.6) % MCV (84-94) fl MCH (28-32) pg MCHC (32-34) % RDW (13.2-15.2) % Plt Count (140-440) K/mm3 VBG pH 7.335 (7.320-7.420) Sodium (137-145) mmol/L Potassium (3.6-5.0) mmol/L Chloride (98-107) mmol/L Carbon Dioxide (22-30) mmol/L Anion Gap mmol/L BUN (9-20) mg/dL Creatinine (0.8-1.5) mg/dL Estimated GFR ml/min BUN/Creatinine Ratio % Glucose (75-100) mg/dL POC Glucose 314 H (70-105) Calcium (8.4-10.2) mg/dL Magnesium (1.7-2.3) mg/dL Total Bilirubin (0.1-1.2) mg/dL AST (5-40) units/L ALT (7-56) units/L Alkaline Phosphatase (35-129) units/L Total Creatine Kinase (55-170) units/L Total Protein (6.3-8.2) g/dL Albumin (3.9-5) g/dL Albumin/Globulin Ratio % Lipase 5 L (13-60) units/L - EKG Data -: EKG Interpreted by [facility] EKG shows normal: sinus rhythm Rate: normal - EKG Data 11/06/19 12:48 Sinus rhythm, 63 bpm, normal axis, QTC 457 ms, repolarization disturbance noted, high left ventricular voltage, motion artifact, not consistent with ST elevati on myocardial infarction. - Medical Decision Making Differential diagnosis, including but not limited to: Hyperglycemia, diabetic ketoacidosis, hyperosmolar state, gastroparesis flare/exacerbation, cannabinoid hyperemesis syndrome Assessment and plan: 29-year-old gentleman with soft benign abdomen, known history of gastroparesis, presenting with nausea and vomiting, and hyperglycemia. Laboratory studies reviewed and appreciated, not consistent with diabetic ketoacidosis. His symptoms are markedly improved with haloperidol. He is resting comfortably on a stretcher at this time, in no acute distress, and with no active vomiting. His "allergy" to Reglan/metoclopramide is "spasming out." He does not endorse any anaphylactic or anaphylactoid symptoms. Patient educated that he does not have a true allergic reaction to this particular medication. The patient will need to discontinue marijuana consumption, and he will need to pursue optimal and improved glycemic control. At the moment, he does not meet criteria for admission to the medical service. Critical care attestation.: If time is entered above; I have spent that time in minutes in the direct care of this critically ill patient, excluding procedure time. ED Disposition Clinical Impression: Hyperglycemia, Gastroparesis Disposition: DC-01 TO HOME OR SELFCARE Is pt being admited?: No Does the pt Need Aspirin: No Condition: Stable Additional Instructions: We recommend the patient avoid consumption of Motrin, ibuprofen, Naprosyn, Aleve. We recommend that patient avoid consumption and secondhand exposure to marijuana/cannabinoids/cannabis. We recommend that patient avoid consumption of alcohol. Recommend that patient adhere to an appropriate diabetic diet, and avoid consumption of simple carbohydrates and sugars. Patient may reference the [place] diabetes Association website for specific recommendations on how he may modify his diet. Patient may take the nausea medications as needed and directed, and he can take Tylenol [id number] as needed for pain, alternating with Pepcid [id number] as needed for pain, or the pantoprazole. Recommend that patient follow-up with her primary care doctor within the next 7 to 10 days, advance diet as tolerated, and drink plenty of water. Avoid consumption of sugar. Please return to the emergency room right away with new, worsened or different symptoms, or symptoms not present on the initial emergency room evaluation. Prescriptions: Isadora Root [Isadora] 250 mg PO QID PRN #30 capsule PRN Reason: Nausea Promethazine [Phenergan] 25 mg [place] Q6HR PRN #15 supp.rect PRN Reason: Nausea Pantoprazole [Protonix TAB] 40 mg PO QDAY #30 tablet Metoclopramide [Reglan] 10 mg PO QID PRN #30 tab PRN Reason: Nausea Referrals: [facility] [Provider Group] - 3-5 Days [facility] [Provider Group] - 3-5 Days
[2019-11-06 11:27] LABS: Hematocrit 44.7 % (35.5-45.6); Hemoglobin 14.8 gm/dl (11.8-15.2); Mean Corpuscular HGB Conc 33 % (32-34); Mean Corpuscular Volume 90 fl (84-94); Platelet Count 217 K/mm3 (140-440); Red Blood Count 4.97 M/mm3 (3.65-5.03); Red Cell Distribution Width 12.5 % (13.2-15.2)
[2019-11-06 11:44] LABS: Alanine Aminotransferase 28 units/L (7-56); Albumin 4.5 g/dL (3.9-5); BUN/Creatinine Ratio 12; Blood Urea Nitrogen 11 mg/dL (9-20); Calcium 9.7 mg/dL (8.4-10.2); Hemolysis Index 8
[2019-11-06] MEDS ORDERED: INSULIN REGULAR, HUMAN 100 UNITS/1 ML IV ONE ×2 (12:02→12:11)
[2019-11-06] MEDS ORDERED: ONDANSETRON 4 MG ODT TAB PO ONE (13:18)
[2019-11-06 13:20] VITALS: BP 118/51
== END 2019-11-06 13:29 | disposition home or self-care (01) ==
LOC: ED 10:04
DX: E11.65 Type 2 diabetes mellitus with hyperglycemia (principal); K31.84 Gastroparesis; I50.9 Heart failure, unspecified; J45.909 Unspecified asthma, uncomplicated; Z79.4 Long term (current) use of insulin; Z79.899 Other long term (current) drug therapy; Z88.8 Allergy status to other drugs, medicaments and biological substances
CPT/HCPCS: 36415; 80053; 82550; 82805; 82962; 83690; 83735; 85027; 93005; 93010; 96361; 96372; 96374; 96375; 99284; J1630; J7030; J1815; Q0162

== ENCOUNTER 2019-12-25 17:50 | Emergency (ER) | payer SELFPAY ==
[2019-12-25 18:02] VITALS: BP 101/62
--- NOTE | 2019-12-25 19:09 | XRay Report ---
RIGHT SHOULDER, 3 VIEWS INDICATION / CLINICAL INFORMATION: pain and decreased ROM. COMPARISON: None available. FINDINGS: No significant osseous or soft tissue abnormality. The shoulder is intact and without evidence of fra cture, dislocation, or significant degenerative change. Visualized right ribs are unremarkable. IMPRESSION: Negative exam. Signer Name: Zuleyma Tafoya MD Signed: 12/25/2019 7:04 PM Workstation Name: [id number]
--- NOTE | 2019-12-25 19:26 | Emergency Department Report ---
ED Extremity Problem HPI - General Chief complaint: Extremity Injury, Lower Stated complaint: DISLOCATED (R) SHOULDER Time Seen by Provider: 12/25/19 19:21 Source: patient Mode of arrival: Ambulatory Limitations: Physical Limitation - History of Present Illness Initial comments: pt is a 29 yo male who presents to the ED with c/o right shoulder pain that began just [employer]IEF [employer]ARF[employer]ER. he states he was playing with his friend and accidentally fell onto his right shoulder. it was a ground level fall inside the house. he states that he immediately began to feel pain. he has discomfort with movement of the shoulder. he states he tried to take an over the counter medication at home without much relief. he has never injured this shoulder before. he denies any numbness or weakness. he denies any other injury. PMHx DM, states controlled. no allergies to meds. - Related Data Previous Rx's Medication Instructions Recorded Last Taken Type Insulin Glargine,Hum.rec.anlog 24 units SUB-Q HS #1 vial 10/08/18 Unknown Rx [Lantus] Insulin Lispro [HumaLOG VIAL] 0 units SQ AC #1 vial 10/08/18 Unknown Rx Ondansetron [Zofran ODT TAB] 8 mg PO Q8H PRN #90 tab.rapdis 10/08/18 Unknown Rx Isadora Root [Isadora] 250 mg PO QID PRN #30 capsule 11/06/19 Unknown Rx Metoclopramide [Reglan] 10 mg PO QID PRN #30 tab 11/06/19 Unknown Rx Pantoprazole [Protonix TAB] 40 mg PO QDAY #30 tablet 11/06/19 Unknown Rx Promethazine [Phenergan] 25 mg NV Q6HR PRN #15 supp.rect 11/06/19 Unknown Rx Cyclobenzaprine [Flexeril] 10 mg PO BID PRN #12 tablet 12/25/19 Unknown Rx Naproxen [EC-Naproxen] 500 mg PO BID PRN #20 tablet. 12/25/19 Unknown Rx Allergies Allergy/AdvReac Type Severity Reaction Status Date / Time metoclopramide [From Reglan] AdvReac panic Verified 10/03/18 11:53 attack ED Review of Systems ROS: Stated complaint: DISLOCATED (R) SHOULDER Other details as noted in HPI Comment: All other systems reviewed and negative ED Past Medical Hx - Past Medical History Hx Congestive Heart Failure: Yes Hx Diabetes: Yes (Type I) Hx Asthma: Yes Hx COPD: No Hx HIV: No Additional medical history: Gastroparesis - Surgical History Past Surgical History?: No Hx Open Heart Surgery: No Hx Cholecystectomy: No Hx Appendectomy: No Hx Breast Surgery: No - Social History Smoking Status: Never Smoker Substance Use Type: Marijuana - Medications Home Medications: Home Medications Medication Instructions Recorded Confirmed Last Taken Type Insulin Glargine,Hum.rec.anlog 24 units SUB-Q HS #1 vial 10/08/18 Unknown Rx [Lantus] Insulin Lispro [HumaLOG VIAL] 0 units SQ AC #1 vial 10/08/18 Unknown Rx Ondansetron [Zofran ODT TAB] 8 mg PO Q8H PRN #90 tab.rapdis 10/08/18 Unknown Rx Isadora Root [Isadora] 250 mg PO QID PRN #30 capsule 11/06/19 Unknown Rx Metoclopramide [Reglan] 10 mg PO QID PRN #30 tab 11/06/19 Unknown Rx Pantoprazole [Protonix TAB] 40 mg PO QDAY #30 tablet 11/06/19 Unknown Rx Promethazine [Phenergan] 25 mg NV Q6HR PRN #15 supp.rect 11/06/19 Unknown Rx Cyclobenzaprine [Flexeril] 10 mg PO BID PRN #12 tablet 12/25/19 Unknown Rx Naproxen [EC-Naproxen] 500 mg PO BID PRN #20 tablet.dr 12/25/19 Unknown Rx ED Physical Exam - General Limitations: Physical Limitation General appearance: alert, in no apparent distress - Head Head exam: Present: atraumatic, normocephalic - Eye Eye exam: Present: normal appearance - ENT ENT exam: Present: mucous membranes moist - Extremities Exam Extremities exam: Present: other (ttp over the right trapezius muscle, trapezius muscle feels tight/spasm, mild AC joint ttp, full passive ROM of the right shoulder with discomfort upon full flexion, no sulcus sign, no obvious joint laxity, no obvious deformity, no crepitus, no ecchymosis, neurovascularly intact) - Neurological Exam Neurological exam: Present: alert, oriented X3 - Psychiatric Psychiatric exam: Present: normal affect, normal mood - Skin Skin exam: Present: warm, dry, intact ED Course Vital Signs 12/25/19 18:00 Temperature 97.6 F Pulse Rate 74 Respiratory 18 Rate Blood Pressure 101/62 O2 Sat by Pulse 99 Oximetry ED Medical Decision Making - Radiology Data Radiology results: report reviewed RIGHT SHOULDER, 3 VIEWS INDICATION / CLINICAL INFORMATION: pain and decreased ROM. COMPARISON: None available. FINDINGS: No significant osseous or soft tissue abnormality. The shoulder is intact and without evidence of fracture, dislocation, or significant degenerative change. Visualized right ribs are unremarkable. IMPRESSION: Negative exam. Signer Name: Zuleyma Tafoya MD Signed: 12/25/2019 7:04 PM Workstation Name: [id number] Transcribed By: Dictated By: Zuleyma Tafoya MD Electronically Authenticated By: Zuleyma Tafoya MD Signed Date/Time: 12/25/191903 DD/ 03 TD/TT: - Medical Decision Making pt is a 29 yo male who presents to the ED with c/o right shoulder pain that began just [employer]. he states he was playing with his friend and accidentally fell onto his right shoulder. it was a ground level fall inside the house. he states that he immediately began to feel pain. he has discomfort with movement of the shoulder. he states he tried to take an over the counter medication at home without much relief. he has never injured this shoulder before. he denies any numbness or weakness. he denies any other injury. PMHx DM, states controlled. no allergies to meds. Vitals are normal. On exam:ttp over the right trapezius muscle, trapezius muscle feels tight/spasm, mild AC joint ttp, full passive ROM of the right shoulder with discomfort upon full flexion, no sulcus sign, no obvious joint laxity, no obvious deformity, no crepitus, no ecchymosis, neurovascularly intact. XR right shoulder: Negative exam. Discussed all results with patient. Discussed with patient to follow-up with an orthopedic doctor for further evaluation, no signs of obvious joint laxity but patient has discomfort with full flexion. Examination consistent with shoulder sprain. Also appears to have right trapezius muscle strain/spasm. Patient given prescription for naproxen and Flexeril. Advised patient please take medication as prescribed. do not drive or operate heavy machinery while taking muscle relaxer. may use ice pack, heating pad, rest, epsom salt bath. follow up with an orthopedic doctor for further evaluation. return to the emergency room for any new or worsening symptoms. - Differential Diagnosis Strain, sprain, fracture, dislocation, rotator cuff injury Critical care attestation.: If time is entered above; I have spent that time in minutes in the direct care of this critically ill patient, excluding procedure time. ED Disposition Clinical Impression: Right shoulder pain Qualifiers: Chronicity: acute Qualified Code(s): M25.511 - Pain in right shoulder Strain of right trapezius muscle Qualifiers: Encounter type: initial encounter Qualified Code(s): S46.811A - Strain of other muscles, fascia and tendons at shoulder and upper arm level, right arm, initial encounter Disposition: TO HOME OR SELFCARE Is pt being admited?: No Does the pt Need Aspirin: No Condition: Stable Instructions: Muscle Strain (ED), Shoulder Sprain (ED) Additional Instructions: please take medication as prescribed. do not drive or operate heavy machinery while taking muscle relaxer. may use ice pack, heating pad, rest, epsom salt bath. follow up with an orthopedic doctor for further evaluation. return to the emergency room for any new or worsening symptoms. Prescriptions: Naproxen [EC-Naproxen] 500 mg PO BID PRN #20 tablet. PRN Reason: pain Cyclobenzaprine [Flexeril] 10 mg PO BID PRN #12 tablet PRN Reason: Muscle Spasm Referrals: MEHUL MANSFIELD MD [Staff Physician] - 3-5 Days [facility] [Provider Group] - 3-5 Days Time of Disposition: 19:26 Print Language: GREENLAND[place]
== END 2019-12-25 19:31 | disposition home or self-care (01) ==
LOC: ED 17:50
DX: S46.811A Strain of other muscles, fascia and tendons at shoulder and upper arm level, right arm, initial encounter (principal); E11.9 Type 2 diabetes mellitus without complications; J45.909 Unspecified asthma, uncomplicated; F12.10 Cannabis abuse, uncomplicated; Z79.899 Other long term (current) drug therapy; Z88.8 Allergy status to other drugs, medicaments and biological substances; W18.30XA Fall on same level, unspecified, initial encounter; Y93.89 Activity, other specified; Y92.008 Other place in unspecified non-institutional (private) residence as the place of occurrence of the external cause; Y99.8 Other external cause status
CPT/HCPCS: 99283

== ENCOUNTER 2020-01-02 10:05 | Inpatient (IN) | payer OTHER ==
[2020-01-02] MEDS ORDERED: ONDANSETRON 4 MG/2 ML INJ ONE ×2 (10:29→14:46)
[2020-01-02] MEDS ORDERED: ONDANSETRON 4 MG/2 ML INJ IV ONE ×2 (10:32→14:59)
[2020-01-02] MEDS ORDERED: fentaNYL 100 MCG/2 ML INJ IV ONE (10:43)
[2020-01-02] MEDS ORDERED: FAMOTIDINE 20 MG/2 ML INJ IV ONE (10:45)
--- NOTE | 2020-01-02 10:45 | Emergency Department Report ---
HPI - General Chief Complaint: Nausea/Vomiting/Diarrhea Time Seen by Provider: 01/02/20 10:36 - HPI HPI: Room 22 The patient is a 29-year-old male present with a chief complaint of nausea vomiting abdominal pain. The patient is a type I diabetic and has history of gastroparesis. Patient states his symptoms began today. Patient describes his midepigastric abdominal pain as a soreness and intermittent in nature. Patient admits to subjective fever at home but denies sick contacts. Patient states he has been compliant with his diabetic medication. Patient currently gives his pain a score 7/10 ED Past Medical Hx - Past Medical History Previous Medical History?: Yes Hx Congestive Heart Failure: Yes Hx Diabetes: Yes (Type I) Hx Asthma: Yes Additional medical history: Gastroparesis - Surgical History Past Surgical History?: No - Family History Family history: no significant - Social History Smoking Status: Former Smoker Substance Use Type: Marijuana - Medications Home Medications: Home Medications Medication Instructions Recorded Confirmed Last Taken Type Insulin Glargine,Hum.rec.anlog 24 units SUB-Q HS #1 vial 10/08/18 Unknown Rx [Lantus] Insulin Lispro [HumaLOG VIAL] 0 units SQ AC #1 vial 10/08/18 Unknown Rx Ondansetron [Zofran ODT TAB] 8 mg PO Q8H PRN #90 tab.rapdis 10/08/18 Unknown Rx Isadora Root [Isadora] 250 mg PO QID PRN #30 capsule 11/06/19 Unknown Rx Metoclopramide [Reglan] 10 mg PO QID PRN #30 tab 11/06/19 Unknown Rx Pantoprazole [Protonix TAB] 40 mg PO QDAY #30 tablet 11/06/19 Unknown Rx Promethazine [Phenergan] 25 mg NC Q6HR PRN #15 supp.rect 11/06/19 Unknown Rx Cyclobenzaprine [Flexeril] 10 mg PO BID PRN #12 tablet 12/25/19 Unknown Rx Naproxen [EC-Naproxen] 500 mg PO BID PRN #20 tablet. 12/25/19 Unknown Rx ED Review of Systems ROS: Stated complaint: HIGH BLOOD SUGAR Other details as noted in HPI Constitutional: fever (Subjective) Eyes: denies: eye pain ENT: denies: throat pain Respiratory: no symptoms reported Cardiovascular: denies: chest pain Endocrine: no symptoms reported Gastrointestinal: abdominal pain, nausea, vomiting Genitourinary: denies: dysuria Musculoskeletal: denies: back pain Neurological: denies: headache Physical Exam - Physical Exam Vital Signs: Vital Signs 01/02/20 10:19 Temperature 97.5 F L Pulse Rate 66 Respiratory 18 Rate Blood Pressure 146/90 O2 Sat by Pulse 100 Oximetry Physical Exam: GENERAL: The patient is well-developed well-nourished male lying on stretcher appearing to be in moderate discomfort. [] HEENT: Normocephalic. Atraumatic. Extraocular motions are intact. NECK: Supple. Trachea midline CHEST/LUNGS: Clear to auscultation. There is no respiratory distress noted. HEART/CARDIOVASCULAR: Regular. There is no tachycardia. There is no gallop rub or murmur. ABDOMEN: Abdomen is soft, nontender the patient complains of discomfort in the midepigastric region. Patient has normal bowel sounds. There is no abdominal distention. SKIN: There is no rash. There is no edema. There is no diaphoresis. NEURO: The patient is awake, alert, and oriented. The patient is cooperative. The patient has normal speech MUSCULOSKELETAL: There is no evidence of acute injury. ED Course Vital Signs 01/02/20 10:19 Temperature 97.5 F L Pulse Rate 66 Respiratory 18 Rate Blood Pressure 146/90 O2 Sat by Pulse 100 Oximetry ED Medical Decision Making - Lab Data Result diagrams: 01/02/20 11:15 01/02/20 11:15 Laboratory Tests 01/02/20 01/02/20 01/02/20 10:36 11:15 11:15 WBC 10.3 RBC 5.05 H Hgb 15.1 Hct 45.3 MCV 90 MCH 30 MCHC 33 RDW 12.6 L Plt Count 179 Lymph % (Auto) 19.4 [place] % (Auto) 4.5 Eos % (Auto) 0.2 Baso % (Auto) 0.4 Lymph # 2.0 [place] # 0.5 Eos # 0.0 Baso # 0.0 Seg Neutrophils % 75.5 H Seg Neutrophils # 7.8 H VBG pH Sodium 138 Potassium 4.2 Chloride 100.2 Carbon Dioxide 19 L Anion Gap 23 BUN 13 Creatinine 1.1 Estimated GFR > 60 BUN/Creatinine Ratio 12 Glucose 415 H POC Glucose 338 H Calcium 10.1 Total Bilirubin 0.30 AST 22 ALT 24 Alkaline Phosphatase 109 Total Protein 8.1 Albumin 4.3 Albumin/Globulin Ratio 1.1 Lipase 5 L 01/02/20 11:15 WBC RBC Hgb Hct MCV MCH MCHC RDW Plt Count Lymph % (Auto) [place] % (Auto) Eos % (Auto) Baso % (Auto) Lymph # [place] # Eos # Baso # Seg Neutrophils % Seg Neutrophils # VBG pH 7.287 L Sodium Potassium Chloride Carbon Dioxide Anion Gap BUN Creatinine Estimated GFR BUN/Creatinine Ratio Glucose POC Glucose Calcium Total Bilirubin AST ALT Alkaline Phosphatase Total Protein Albumin Albumin/Globulin Ratio Lipase - Radiology Data Radiology results: report reviewed (CT abdomen pelvis), image reviewed (CT abdomen pelvis) Findings [facility] [address] [place] [address] Cat Scan Report Signed Patient: MAYNOR BOWEN MR#: [id number] : 1990 Acct:[id number] Age/Sex: 29 / M ADM Date: 01/02/20 Loc: ED Attending Dr: Ordering Physician: LORELEI THOMAS MD Date of Service: 01/02/20 Procedure(s): CT abdomen pelvis w con Accession Number(s): [id number] cc: LORELEI THOMAS MD CT abdomen pelvis w con INDICATION: MAIN: Epigastric abdominal pain nausea vomiting 100 ML OMNI 300. TECHNIQUE: All CT scans at this location are performed using CT dose reduction for ALARA by means of automated exposure con trol. COMPARISON: None available. FINDINGS: Lung bases are clear. Liver, gallbladder, spleen, pancreas, kidneys and adrenals appear negative. Abdominal aorta is normal in size. No adenopathy. Pelvis Normal appendix. No free fluid or inflammatory change. Urinary bladder appears negative. No significant skeletal lesions. IMPRESSION: 1. Negative study. Signer Name: Jose Rodriguez MD Signed: 01/02/2020 1:50 PM Workstation Name: [id number] Transcribed By: TM Dictated By: Jose Rodriguez MD Electronically Authenticated By: Jose Rodriguez MD Signed Date/Time: 01/02/20 1350 DD/ 1348 TD/TT: - Differential Diagnosis Gastroparesis, pancreatitis, small bowel obstruction, peptic ulcer disease Critical care attestation.: If time is entered above; I have spent that time in minutes in the direct care of this critically ill patient, excluding procedure time. ED Disposition Clinical Impression: DKA (diabetic ketoacidoses), Abdominal pain Disposition: OP ADMIT IP TO THIS HOSP Is pt being admited?: Yes Does the pt Need Aspirin: No Condition: Fair Instructions: Diabetic Ketoacidosis (ED) Time of Disposition: 14:14 (Hospitalist paged (Dr Weldon))
[2020-01-02 11:36] LABS: Basophils % (Auto) 0.4 % (0.0-1.8); Eosinophils % (Auto) 0.2 % (0.0-4.3); Hematocrit 45.3 % (35.5-45.6); Hemoglobin 15.1 gm/dl (11.8-15.2); Lymphocytes % (Auto) 19.4 % (13.4-35.0); Mean Corpuscular HGB Conc 33 % (32-34); Mean Corpuscular Volume 90 fl (84-94); Monocytes # (Auto) 0.5 K/mm3 (0.0-0.8); Monocytes % (Auto) 4.5 % (0.0-7.3); Red Blood Count 5.05 M/mm3 (3.65-5.03); Red Cell Distribution Width 12.6 % (13.2-15.2)
[2020-01-02 11:39] LABS: Platelet Count 179 K/mm3 (140-440)
[2020-01-02 12:02] LABS: Alanine Aminotransferase 24 units/L (7-56); Albumin 4.3 g/dL (3.9-5); BUN/Creatinine Ratio 12; Blood Urea Nitrogen 13 mg/dL (9-20); Calcium 10.1 mg/dL (8.4-10.2); Hemolysis Index 31
--- NOTE | 2020-01-02 13:54 | Cat Scan Report ---
CT abdomen pelvis w con INDICATION: MAIN: Epigastric abdominal pain nausea vomiting 100 ML OMNI 300. TECHNIQUE: All CT scans at this location are performed using CT dose reduction for ALARA by means of automated e xposure control. COMPARISON: None available. FINDINGS: Lung bases are clear. Liver, gallbladder, spleen, pancreas, kidneys and adrenals appear negative. Abd ominal aorta is normal in size. No adenopathy. Pelvis Normal appendix. No free fluid or inflammatory change. Urinary bladder appears negative. No significant skeletal lesions. IMPRESSION: 1. Negative study. Signer Name: Jose Rodriguez MD Signed: 01/02/2020 1:50 PM Workstation Name: [id number]
[2020-01-02] MEDS ORDERED: INSULIN REGULAR, HUMAN 100 UNITS in SODIUM CHLORIDE 0.9% 99 ML IV SCH ×2 (14:00→19:00)
[2020-01-02 14:55] LABS: Bilirubin,Urine NEG (Negative); Blood,Urine NEG (Negative); Color,Urine Straw (Yellow); Protein,Urine <15 mg/dL mg/dL (Negative); Urobilinogen,Urine < 2.0 mg/dL (<2.0)
[2020-01-02] MEDS ORDERED: PROMETHAZINE 25 MG RECT SUPP PR ONE ×2 (16:18→16:22)
[2020-01-02] MEDS ORDERED: DEXTROSE 50% IN WATER (25GM) 50 ML SYRINGE IV PRN (18:36)
[2020-01-02] MEDS ORDERED: SODIUM CHLORIDE 0.9% 1000 ML 1,000 ML IV ONE (18:36)
[2020-01-02] MEDS ORDERED: HYDROmorphone 1 MG/1 ML INJ IV PRN (18:41)
[2020-01-02] MEDS ORDERED: ACETAMINOPHEN 325 MG TAB PO PRN (18:41)
[2020-01-02] MEDS ORDERED: oxyCODONE /ACETAMINOPHEN 5-325MG TAB PO PRN (18:41)
[2020-01-02] MEDS ORDERED: POTASSIUM CHLORIDE 10 MEQ 10 MEQ/100 ML BAG IV SCH ×2 (19:00)
[2020-01-02] MEDS: ONDANSETRON 4 MG/2 ML INJ IV PRN ×2 (19:30→22:54)
[2020-01-02] MEDS: D5W/0.45% NACL/KCL 20 MEQ 20 MEQ/1,000 ML BAG IV SCH (20:55)
[2020-01-02 21:56] LABS: BUN/Creatinine Ratio 14; Blood Urea Nitrogen 13 mg/dL (9-20); Hemolysis Index 15
[2020-01-02] MEDS: FAMOTIDINE 20 MG/2 ML INJ IV SCH (22:54)
[2020-01-03] MEDS: ONDANSETRON 4 MG/2 ML INJ IV PRN ×7 (01:12→21:10)
[2020-01-03 04:34] LABS: BUN/Creatinine Ratio 13; Blood Urea Nitrogen 12 mg/dL (9-20); Hemolysis Index 3
--- NOTE | 2020-01-03 08:26 | Event Note ---
Date: 01/02/20 See H/p in reports DKA
[2020-01-03] MEDS ORDERED: MAGNESIUM SULFATE 2 GM/50 ML BAG IV ONE (09:00)
--- NOTE | 2020-01-03 09:57 | History and Physical Report ---
CHIEF COMPLAINT: Nausea and vomiting for 2 days. HISTORY OF PRESENT ILLNESS: A 29-year-old male with history of juvenile type 1 diabetes, on insulin 70/30 three times a day, comes in for nausea, vomiting for 2 days. The patient states he has been vomiting 3-4 times a day. The patient states that he has been taking insulin regularly. The patient has epigastric pain and vomiting for 3-4 times a day. The patient states he has been very compliant with his day of medications. PAST MEDICAL HISTORY: Congestive heart failure, diabetes, asthma and gastroparesis. PAST SURGICAL HISTORY: None. FAMILY HISTORY: No significant family history. SOCIAL HISTORY: Former smoker. Smokes marijuana. CURRENT MEDICATIONS: Insulin Lantus 24 units at nighttime and Humalog supposed to be before each meal. Flexeril 10 mg twice a day. REVIEW OF SYSTEMS: Significant for nausea, vomiting, and epigastric pain for 2 days. PHYSICAL EXAMINATION: GENERAL: Young male, slightly altered sensorium. VITAL SIGNS: Blood pressure is 129/69, pulse is 79, temperature is 98. HEENT: Unremarkable. Pupils are equal and reactive. NECK: Supple, no lymphadenopathy, no thyromegaly. LUNGS: Clear to auscultation and percussion. Good air entry. CARDIOVASCULAR SYSTEM: S1, S2 heard. No gallop, no murmur, no rub. Apical impulse in left fifth intercostal space and midclavicular line. ABDOMEN: Soft. Slight tenderness in the epigastric region. Bowel sounds are normal. EXTREMITIES: Good pedal pulses. CENTRAL NERVOUS SYSTEM: Alert and oriented x 4. Slightly lethargic. LABORATORY DATA: Significant for white count of 10,300, H and H is normal. Sodium is 132, potassium is 4.2, bicarbonate is 20, glucose of 415. A1c is 8.5. Urine specific gravity is 1.047. Ketones are 20. ASSESSMENT AND PLAN: 1. Diabetic ketoacidosis. Diabetic ketoacidosis protocol initiated. Once the blood glucose levels are near normal, we will downgrade him to fluid. 2. Hypophosphatemia, supplemented. 3. Hypomagnesemia, supplemented. 4. Metabolic acidosis. IV fluids for now. 5. Deep venous thrombosis prophylaxis, heparin 5000 q. 12. CRITICAL CARE STATEMENT: 32 minutes of critical care time. JOB# [id number] PAIGE/SALLIE
[2020-01-03] MEDS: FAMOTIDINE 20 MG/2 ML INJ IV SCH ×2 (10:00→21:10)
[2020-01-03] MEDS ORDERED: POTASSIUM PHOSPHATE 15 MMOL in SODIUM CHLORIDE 0.9% 250ML 250 ML IV ONE (10:30)
[2020-01-03] MEDS ORDERED: DEXTROSE 50% IN WATER (25GM) 50 ML SYRINGE IV PRN (11:15)
--- NOTE | 2020-01-03 11:21 | Event Note ---
Date: 01/03/20 Patient admitted with DKA overnight. Anion Gap has closed. Required 67 units of insulin so will place on 70/30 17 BID and give a dose now. Per patient takes 30 units TID. I am not going to start that regimen. placed on high dose sliding scale and will order lunch. If able to keep down, will transfer to floor after lunch.
[2020-01-03] MEDS ORDERED: INSULIN REGULAR, HUMAN 100 UNITS/1 ML SUB-Q SCH (11:30)
[2020-01-03] MEDS ORDERED: INSULIN NPH/REGULAR 70/30 INJ SUB-Q ONE (12:00)
[2020-01-03 13:57] LABS: BUN/Creatinine Ratio 13; Blood Urea Nitrogen 12 mg/dL (9-20); Calcium 9.7 mg/dL (8.4-10.2); Hemolysis Index 12
[2020-01-03] MEDS: D5W/0.45% NACL/KCL 20 MEQ 20 MEQ/1,000 ML BAG IV SCH (14:39)
[2020-01-03 16:11] LABS: BUN/Creatinine Ratio 12; Blood Urea Nitrogen 11 mg/dL (9-20); Calcium 9.2 mg/dL (8.4-10.2); Hemolysis Index 12
--- NOTE | 2020-01-03 17:19 | Progress Note ---
Assessment and Plan - Patient Problems (1) DKA (diabetic ketoacidoses) Current Visit: Yes Status: Acute Qualifiers: Diabetes mellitus type: type 1 Plan to address problem: Improving Still nauseous Cont close monitoring Trabsfer to Floor if ok by nut [facility] (2) Gastritis Current Visit: Yes Status: Acute Plan to address problem: IV protonis and IV fluids (3) DVT prophylaxis Current Visit: No Status: Acute Plan to address problem: On Heparin Subjective Date of service: 01/03/20 Principal diagnosis: DKA Interval history: Improving Less Nausea Objective - Constitutional Vitals: Vital Signs - 12hr 01/03/20 01/03/20 01/03/20 05:21 05:31 05:41 Temperature Pulse Rate 85 89 91 H Pulse Rate [ From Monitor] Respiratory 13 11 L 11 L Rate Respiratory Rate [Abdomen] Blood Pressure 120/51 120/51 120/51 O2 Sat by Pulse 99 99 100 Oximetry 01/03/20 01/03/20 01/03/20 05:51 06:01 06:11 Temperature Pulse Rate 91 H 94 H 97 H Pulse Rate [ From Monitor] Respiratory 14 13 23 Rate Respiratory Rate [Abdomen] Blood Pressure 114/49 92/53 92/53 O2 Sat by Pulse 97 99 99 Oximetry 01/03/20 01/03/20 01/03/20 06:21 06:31 06:41 Temperature Pulse Rate 80 82 74 Pulse Rate [ From Monitor] Respiratory 16 14 25 H Rate Respiratory Rate [Abdomen] Blood Pressure 119/57 123/58 123/58 O2 Sat by Pulse 99 91 94 Oximetry 01/03/20 01/03/20 01/03/20 06:51 07:01 07:11 Temperature Pulse Rate 73 82 75 Pulse Rate [ From Monitor] Respiratory 15 13 20 Rate Respiratory Rate [Abdomen] Blood Pressure 118/57 118/57 118/57 O2 Sat by Pulse 97 95 95 Oximetry 01/03/20 01/03/20 01/03/20 07:21 07:31 07:41 Temperature Pulse Rate 72 70 75 Pulse Rate [ From Monitor] Respiratory 16 12 12 Rate Respiratory Rate [Abdomen] Blood Pressure 118/57 118/57 118/57 O2 Sat by Pulse 96 98 99 Oximetry 01/03/20 01/03/20 01/03/20 07:51 08:00 08:01 Temperature 98.3 F Pulse Rate 85 79 Pulse Rate [ 69 From Monitor] Respiratory 12 13 15 Rate Respiratory Rate [Abdomen] Blood Pressure 118/57 129/69 O2 Sat by Pulse 100 99 94 Oximetry 01/03/20 01/03/20 01/03/20 08:11 08:21 08:31 Temperature Pulse Rate 76 66 71 Pulse Rate [ From Monitor] Respiratory 13 16 15 Rate Respiratory Rate [Abdomen] Blood Pressure 129/69 129/69 129/69 O2 Sat by Pulse 98 98 99 Oximetry 01/03/20 01/03/20 01/03/20 08:41 08:51 09:01 Temperature Pulse Rate 66 98 H 73 Pulse Rate [ From Monitor] Respiratory 16 13 16 Rate Respiratory Rate [Abdomen] Blood Pressure 129/69 129/69 129/69 O2 Sat by Pulse 97 99 99 Oximetry 01/03/20 01/03/20 01/03/20 09:11 09:21 09:31 Temperature Pulse Rate 75 71 106 H Pulse Rate [ From Monitor] Respiratory 15 22 13 Rate Respiratory Rate [Abdomen] Blood Pressure 129/69 129/69 129/69 O2 Sat by Pulse 96 95 100 Oximetry 01/03/20 01/03/20 01/03/20 09:41 09:51 10:00 Temperature Pulse Rate 84 72 76 Pulse Rate [ From Monitor] Respiratory 16 17 12 Rate Respiratory 27 H Rate [Abdomen] Blood Pressure 129/69 129/69 109/61 O2 Sat by Pulse 98 99 95 Oximetry 01/03/20 01/03/20 01/03/20 10:11 10:21 10:31 Temperature Pulse Rate 72 69 75 Pulse Rate [ From Monitor] Respiratory Rate Respiratory Rate [Abdomen] Blood Pressure 109/61 106/53 107/59 O2 Sat by Pulse 95 96 99 Oximetry 01/03/20 01/03/20 01/03/20 10:41 10:51 11:01 Temperature Pulse Rate 70 77 81 Pulse Rate [ From Monitor] Respiratory Rate Respiratory Rate [Abdomen] Blood Pressure 107/59 101/49 101/49 O2 Sat by Pulse 97 98 99 Oximetry 01/03/20 01/03/20 01/03/20 11:11 11:21 11:31 Temperature Pulse Rate 76 71 80 Pulse Rate [ From Monitor] Respiratory 14 Rate Respiratory Rate [Abdomen] Blood Pressure 101/49 101/49 101/49 O2 Sat by Pulse 97 99 98 Oximetry 01/03/20 01/03/20 01/03/20 11:41 11:51 12:00 Temperature 98.5 F Pulse Rate 76 71 Pulse Rate [ 73 From Monitor] Respiratory 12 17 14 Rate Respiratory Rate [Abdomen] Blood Pressure 150/119 150/119 O2 Sat by Pulse 98 98 99 Oximetry 01/03/20 01/03/20 01/03/20 12:01 12:11 12:21 Temperature Pulse Rate 75 71 76 Pulse Rate [ From Monitor] Respiratory 10 L 17 17 Rate Respiratory Rate [Abdomen] Blood Pressure 150/119 150/119 118/60 O2 Sat by Pulse 100 97 99 Oximetry 01/03/20 01/03/20 01/03/20 12:31 12:41 12:51 Temperature Pulse Rate 79 77 69 Pulse Rate [ From Monitor] Respiratory 11 L 17 14 Rate Respiratory Rate [Abdomen] Blood Pressure 118/60 118/60 115/55 O2 Sat by Pulse 99 97 100 Oximetry 01/03/20 01/03/20 01/03/20 13:01 13:11 13:21 Temperature Pulse Rate 79 80 86 Pulse Rate [ From Monitor] Respiratory 20 17 21 Rate Respiratory Rate [Abdomen] Blood Pressure 124/68 124/68 124/68 O2 Sat by Pulse 98 99 99 Oximetry 01/03/20 01/03/20 01/03/20 13:31 13:41 13:51 Temperature Pulse Rate 100 H 88 76 Pulse Rate [ From Monitor] Respiratory 18 15 13 Rate Respiratory Rate [Abdomen] Blood Pressure 124/68 124/68 124/68 O2 Sat by Pulse 100 100 95 Oximetry 01/03/20 01/03/20 01/03/20 14:01 14:11 14:21 Temperature Pulse Rate 74 78 76 Pulse Rate [ From Monitor] Respiratory 19 20 16 Rate Respiratory Rate [Abdomen] Blood Pressure 124/68 124/68 124/68 O2 Sat by Pulse 98 98 98 Oximetry 01/03/20 01/03/20 01/03/20 14:31 14:41 14:51 Temperature Pulse Rate 80 68 73 Pulse Rate [ From Monitor] Respiratory 14 13 17 Rate Respiratory Rate [Abdomen] Blood Pressure 124/68 124/68 120/60 O2 Sat by Pulse 96 98 97 Oximetry 01/03/20 01/03/20 15:01 15:11 Temperature Pulse Rate 73 76 Pulse Rate [ From Monitor] Respiratory 14 14 Rate Respiratory Rate [Abdomen] Blood Pressure 111/60 111/60 O2 Sat by Pulse 100 98 Oximetry General appearance: Present: no acute distress, well-nourished - EENT Eyes: PERRL, EOM intact ENT: hearing intact, clear oral mucosa Ears: bilateral: normal - Neck Neck: supple, normal ROM - Respiratory Respiratory effort: normal Respiratory: bilateral: CTA - Breasts Breasts: normal - Cardiovascular Heart rate: 78 Rhythm: regular Heart Sounds: Present: S1 & S2. Absent: gallop, rub Extremities: pulses intact, No edema, normal color, Full ROM - Gastrointestinal General gastrointestinal: Present: soft, non-tender, non-distended, normal bowel sounds Rectal Exam: deferred - Genitourinary Male genitourinary: normal - Integumentary Integumentary: clear, warm, dry - Musculoskeletal Musculoskeletal: 1, strength equal bilaterally - Neurologic Neurologic: moves all extremities - Psychiatric Psychiatric: memory intact, appropriate mood/affect, intact judgment & insight - Allied health notes Allied health notes reviewed: nursing, case management - Labs CBC & Chem 7: 01/02/20 11:15 01/03/20 14:55 Labs: Abnormal lab results 01/02/20 01/02/20 01/02/20 Range/Units 16:24 17:28 18:03 Potassium (3.6-5.0) mmol/L Carbon Dioxide (22-30) mmol/L Glucose (75-100) mg/dL POC Glucose 280 H 293 H 229 H (70-105) Hemoglobin A1c (4-6) % Phosphorus (2.5-4.5) mg/dL Magnesium (1.7-2.3) mg/dL 01/02/20 01/02/20 01/02/20 Range/Units 19:47 20:47 20:58 Potassium (3.6-5.0) mmol/L Carbon Dioxide 20 L (22-30) mmol/L Glucose 150 H (75-100) mg/dL POC Glucose 176 H 149 H (70-105) Hemoglobin A1c (4-6) % Phosphorus (2.5-4.5) mg/dL Magnesium (1.7-2.3) mg/dL 01/02/20 01/02/20 01/02/20 Range/Units 20:58 20:58 21:17 Potassium (3.6-5.0) mmol/L Carbon Dioxide (22-30) mmol/L Glucose (75-100) mg/dL POC Glucose 142 H (70-105) Hemoglobin A1c 8.5 H (4-6) % Phosphorus 1.70 L (2.5-4.5) mg/dL Magnesium 1.60 L (1.7-2.3) mg/dL 01/02/20 01/02/20 01/03/20 Range/Units 22:08 23:05 00:21 Potassium (3.6-5.0) mmol/L Carbon Dioxide (22-30) mmol/L Glucose (75-100) mg/dL POC Glucose 163 H 162 H 187 H (70-105) Hemoglobin A1c (4-6) % Phosphorus (2.5-4.5) mg/dL Magnesium (1.7-2.3) mg/dL 01/03/20 01/03/20 01/03/20 Range/Units 01:19 02:35 03:19 Potassium (3.6-5.0) mmol/L Carbon Dioxide (22-30) mmol/L Glucose (75-100) mg/dL POC Glucose 196 H 160 H 146 H (70-105) Hemoglobin A1c (4-6) % Phosphorus (2.5-4.5) mg/dL Magnesium (1.7-2.3) mg/dL 01/03/20 01/03/20 01/03/20 Range/Units 04:08 04:08 04:25 Potassium 3.5 L (3.6-5.0) mmol/L Carbon Dioxide (22-30) mmol/L Glucose 123 H (75-100) mg/dL POC Glucose 116 H (70-105) Hemoglobin A1c (4-6) % Phosphorus 2.00 L (2.5-4.5) mg/dL Magnesium (1.7-2.3) mg/dL 01/03/20 01/03/20 01/03/20 Range/Units 06:20 06:52 08:41 Potassium (3.6-5.0) mmol/L Carbon Dioxide (22-30) mmol/L Glucose (75-100) mg/dL POC Glucose 138 H 165 H 185 H (70-105) Hemoglobin A1c (4-6) % Phosphorus (2.5-4.5) mg/dL Magnesium (1.7-2.3) mg/dL 01/03/20 01/03/2001/02/20 Range/Units 09:45 11:02 11:59 Potassium (3.6-5.0) mmol/L Carbon Dioxide (22-30) mmol/L Glucose (75-100) mg/dL POC Glucose 201 H 148 H 143 H (70-105) Hemoglobin A1c (4-6) % Phosphorus (2.5-4.5) mg/dL Magnesium (1.7-2.3) mg/dL 01/03/20 01/03/20 Range/Units 13:20 14:55 Potassium (3.6-5.0) mmol/L Carbon Dioxide (22-30) mmol/L Glucose 122 H 172 H (75-100) mg/dL POC Glucose (70-105) Hemoglobin A1c (4-6) % Phosphorus (2.5-4.5) mg/dL Magnesium (1.7-2.3) mg/dL
[2020-01-03] MEDS: INSULIN NPH/REGULAR 70/30 INJ SUB-Q SCH (17:36)
[2020-01-03] MEDS: INSULIN LISPRO 100 UNIT/ML SUB-Q SCH ×2 (17:47→17:48)
[2020-01-03] MEDS: METOCLOPRAMIDE 10 MG/2 ML INJ IV PRN (18:30)
[2020-01-04] MEDS: METOCLOPRAMIDE 10 MG/2 ML INJ IV PRN ×4 (01:59→22:22)
[2020-01-04] MEDS: ONDANSETRON 4 MG/2 ML INJ IV PRN ×3 (04:23→21:06)
[2020-01-04] MEDS: INSULIN LISPRO 100 UNIT/ML SUB-Q SCH ×4 (09:09→22:00)
[2020-01-04] MEDS: FAMOTIDINE 20 MG/2 ML INJ IV SCH (09:10)
[2020-01-04] MEDS: INSULIN NPH/REGULAR 70/30 INJ SUB-Q SCH ×2 (09:45→17:00)
--- NOTE | 2020-01-04 10:20 | Event Note ---
Date: 01/04/20 Nursing requested to keep patient overnight as he was not eating or able to keep anything down. Continued IVF's. Sugar this am was elevated in the 300's. Will increase 70/30 22 BID and give an additional 5 units now. Stable for transfer to floor. Spoke with charge and nursing staff. Can go to [facility] unit.
[2020-01-04] MEDS ORDERED: INSULIN NPH/REGULAR 70/30 INJ SUB-Q ONE (10:30)
[2020-01-04] MEDS: SODIUM CHLORIDE 0.9% 1000 ML 1,000 ML IV SCH ×2 (11:02→17:40)
[2020-01-04 16:07] LABS: Basophils % (Auto) 0.3 % (0.0-1.8); Hematocrit 40.5 % (35.5-45.6); Hemoglobin 13.6 gm/dl (11.8-15.2); Lymphocytes # (Auto) 2.8 K/mm3 (1.2-5.4); Lymphocytes % (Auto) 25.9 % (13.4-35.0); Mean Corpuscular HGB Conc 34 % (32-34); Mean Corpuscular Volume 89 fl (84-94); Monocytes # (Auto) 1.1 K/mm3 (0.0-0.8); Monocytes % (Auto) 10.5 % (0.0-7.3); Platelet Count 211 K/mm3 (140-440); Red Blood Count 4.53 M/mm3 (3.65-5.03); Red Cell Distribution Width 12.2 % (13.2-15.2)
[2020-01-04 16:09] LABS: BUN/Creatinine Ratio 13; Blood Urea Nitrogen 10 mg/dL (9-20); Calcium 8.8 mg/dL (8.4-10.2); Hemolysis Index 21
[2020-01-04] MEDS ORDERED: INSULIN NPH, HUMAN 100 UNIT/1 ML SUB-Q SCH (17:00)
[2020-01-04] MEDS: FAMOTIDINE 20 MG TAB PO SCH (22:20)
[2020-01-05 07:35] VITALS: BP 138/79
[2020-01-05] MEDS: INSULIN LISPRO 100 UNIT/ML SUB-Q SCH ×2 (09:09→12:26)
[2020-01-05] MEDS: INSULIN NPH/REGULAR 70/30 INJ SUB-Q SCH (10:03)
[2020-01-05] MEDS: FAMOTIDINE 20 MG TAB PO SCH (10:50)
--- NOTE | 2020-01-05 11:36 | Progress Note ---
Assessment and Plan - Patient Problems (1) DKA (diabetic ketoacidoses) Current Visit: Yes Status: Acute Qualifiers: Diabetes mellitus type: type 1 Plan to address problem: Improving Still nauseous Cont close monitoring (2) Gastritis Current Visit: Yes Status: Acute Plan to address problem: IV protonis and IV fluids (3) DVT prophylaxis Current Visit: No Status: Acute Plan to address problem: On Heparin Subjective Date of service: 01/04/20 Principal diagnosis: DKA Interval history: Improving Less Nausea Objective - Constitutional Vitals: Vital Signs - 12hr 01/05/20 01/05/20 01/05/20 02:00 02:31 07:34 Temperature 98.8 F 99.0 F Pulse Rate 71 73 Respiratory 18 21 Rate Blood Pressure 137/93 Blood Pressure 138/79 [Left] O2 Sat by Pulse 98 98 Oximetry General appearance: Present: no acute distress, well-nourished - EENT Eyes: PERRL, EOM intact ENT: hearing intact, clear oral mucosa Ears: bilateral: normal - Neck Neck: supple, normal ROM - Respiratory Respiratory effort: normal Respiratory: bilateral: CTA - Breasts Breasts: normal - Cardiovascular Heart rate: 78 Rhythm: regular Heart Sounds: Present: S1 & S2. Absent: gallop, rub Extremities: no ischemia, pulses intact, No edema, normal color, Full ROM - Gastrointestinal General gastrointestinal: Present: soft, non-tender, non-distended, normal bowel sounds - Genitourinary Male genitourinary: normal - Integumentary Integumentary: clear, warm, dry - Musculoskeletal Musculoskeletal: 1, strength equal bilaterally - Neurologic Neurologic: moves all extremities - Psychiatric Psychiatric: memory intact, appropriate mood/affect, intact judgment & insight - Labs CBC & Chem 7: 01/04/20 15:07 01/04/20 15:07 Labs: Abnormal lab results 01/04/20 01/04/20 01/04/20 Range/Units 11:36 15:07 15:07 RDW 12.2 L (13.2-15.2) % Barron % (Auto) 10.5 H (0.0-7.3) % Barron # 1.1 H (0.0-0.8) K/mm3 Potassium 3.5 L (3.6-5.0) mmol/L Carbon Dioxide 21 L (22-30) mmol/L Glucose 116 H (75-100) mg/dL POC Glucose 230 H (70-105) 01/04/20 01/05/20 01/05/20 Range/Units 21:54 07:59 11:31 RDW (13.2-15.2) % Barron % (Auto) (0.0-7.3) % Barron # (0.0-0.8) K/mm3 Potassium (3.6-5.0) mmol/L Carbon Dioxide (22-30) mmol/L Glucose (75-100) mg/dL POC Glucose 130 H 270 H 257 H (70-105)
--- NOTE | 2020-01-05 15:59 | Discharge Summary ---
Providers - Providers Date of Admission: 01/02/20 14:34 Date of discharge: 01/05/20 Attending physician: ANN ARGUETA 01/02/20 18:37 Consult to Dietitian/Nutrition [CONS] Routine Physician Instructions: Reason For Exam: DKA Reason for Consult: Nutrition Recommendations Reason for Consult: Diet education [facility] Hospital[facility] Condition: Fair Hospital course: Patient was admitted to ICU for DKA. Patient blood glucose was 415 and bicarb was 19 and anion gap of 23. Patient did well with IV fluids IV insulin and frequent Accu-Cheks. And coverage. Patient was nauseous and secondary to patient was symptomatically treated. Got better improved. Wanted to go home on 04 January. Patient signed out AMA without prescriptions. Patient says he was in a love to go home. Try to contact the patient on phone but phone not available. Not ringing. No discharge diagnoses DKA metabolic acidosis and gastritis. (1) DKA (diabetic ketoacidoses) Current Visit: Yes Status: Acute Qualifiers: Diabetes mellitus type: type 1 Plan to address problem: Improving Still nauseous Cont close monitoring Patient to take insulin 70/30 25 units twice a day. Patient to be counseled. Patient was called at home to inform but did not sampler pickup the phone. (2) Gastritis Current Visit: Yes Status: Acute Plan to address problem: oral Protonix at this oral Protonix at discharge. (3) Metabolic acidosis IV fluids IV insulin. Gap corrected. Disposition: DC-07 LEFT AGAINST MED ADVICE Time spent for discharge: 40 minutes - Discharge Diagnoses (1) DKA (diabetic ketoacidoses) Status: Suspected Qualifiers: Diabetes mellitus type: type 1 Comment: Improved, (2) Gastritis Status: Acute (3) DVT prophylaxis Status: Acute Core Measure Documentation - Palliative Care Palliative Care/ Comfort Measures: Not Applicable - Core Measures Any of the following diagnoses?: none Exam - Constitutional Vitals: Temp Pulse Resp BP Pulse Ox 99.0 F 73 21 138/79 98 01/05/20 07:34 01/05/20 07:34 01/05/20 07:34 01/05/20 07:34 01/05/20 07:34 General appearance: Present: no acute distress, well-nourished - EENT Eyes: Present: PERRL ENT: hearing intact, clear oral mucosa - Neck Neck: Present: supple, normal ROM - Respiratory Respiratory effort: normal Respiratory: bilateral: CTA - Cardiovascular Heart rate: 76 Rhythm: regular Heart Sounds: Present: S1 & S2. Absent: rub, click - Extremities Extremities: pulses symmetrical, No edema Peripheral Pulses: within normal limits - Abdominal General gastrointestinal: Present: soft, non-tender, non-distended, normal bowel sounds Male genitourinary: Present: normal - Integumentary Integumentary: Present: clear, warm, dry - Musculoskeletal Musculoskeletal: gait normal, strength equal bilaterally - Psychiatric Psychiatric: appropriate mood/affect, intact judgment & insight - Neurologic Neurologic: CNII-XII intact, moves all extremities Plan Follow up with: JOVI RIZVI MD [Primary Care Provider] - 3-5 Days Forms: AMA Form
== END 2020-01-05 13:40 | disposition left against medical advice (07) | DRG 639 ==
LOC: ED 10:05 → CC1 14:34 → 2B-ACE 01-04 12:25
PROVIDERS: ADMIT Internal Medicine; ATTEND Internal Medicine
DX: E10.10 Type 1 diabetes mellitus with ketoacidosis without coma (principal); Z53.29 Procedure and treatment not carried out because of patient's decision for other reasons; K29.70 Gastritis, unspecified, without bleeding; I50.9 Heart failure, unspecified; J45.909 Unspecified asthma, uncomplicated; E83.42 Hypomagnesemia; E83.39 Other disorders of phosphorus metabolism; Z87.891 Personal history of nicotine dependence; Z79.899 Other long term (current) drug therapy
CPT/HCPCS: 36415; 74177; 80048; 80053; 81001; 82805; 82962; 83036; 83690; 83735; 83930; 84100; 85025; 93005; G0378; J1815; J2405; J2765; J3010; J3475; J7030; J7050; Q9967

== ENCOUNTER 2020-04-19 22:32 | Inpatient (IN) | payer OTHER ==
[2020-04-20 04:19] LABS: BUN/Creatinine Ratio 15; Blood Urea Nitrogen 17 mg/dL (9-20); Calcium 10.3 mg/dL (8.4-10.2); Hemolysis Index 6
[2020-04-20] MEDS ORDERED: SODIUM CHLORIDE 0.9% 1000 ML 1,000 ML IV ONE ×2 (06:19→06:38)
[2020-04-20] MEDS ORDERED: DEXTROSE 50% IN WATER (25GM) 50 ML SYRINGE IV PRN (06:20)
[2020-04-20] MEDS ORDERED: METOCLOPRAMIDE 10 MG/2 ML INJ IV ONE (06:36)
[2020-04-20] MEDS ORDERED: diphenhydrAMINE 50 MG/ML VIAL IV ONE (06:39)
--- NOTE | 2020-04-20 06:42 | Emergency Department Report ---
ED General Adult HPI - General Chief complaint: Hyperglycemia Stated complaint: DIABETES Time Seen by Provider: 04/20/20 06:18 Source: patient Mode of arrival: Ambulatory Limitations: No Limitations - History of Present Illness Initial comments: Mr. Leone is a 29 years old male type 1 diabetes, noncompliant with his insulin. Patient stated that last time he took insulin was 1 month ago. Patient was seen here yesterday in the ER diagnosed with DKA and recommended to be admitted to the hospital however patient was discharged after being evaluated by hospitalist. Patient returned back to the ER stating that his symptoms is getting worse and he became more diaphoretic and continued to vomit. Patient still denying any fever or chills. Patient is complaining of abdominal pain. No chest pain or shortness of breath. - Related Data Previous Rx's Medication Instructions Recorded Last Taken Type Insulin Glargine,Hum.rec.anlog 24 units SUB-Q HS #1 vial 10/08/18 Unknown Rx [Lantus] Insulin Lispro [HumaLOG VIAL] 0 units SQ AC #1 vial 10/08/18 Unknown Rx Ondansetron [Zofran ODT TAB] 8 mg PO Q8H PRN #90 tab.rapdis 10/08/18 Unknown Rx Isadora Root [Isadora] 250 mg PO QID PRN #30 capsule 11/06/19 Unknown Rx Pantoprazole [Protonix TAB] 40 mg PO QDAY #30 tablet 11/06/19 Unknown Rx Promethazine [Phenergan] 25 mg HI Q6HR PRN #15 supp.rect 11/06/19 Unknown Rx Cyclobenzaprine [Flexeril] 10 mg PO BID PRN #12 tablet 12/25/19 Unknown Rx Naproxen [EC-Naproxen] 500 mg PO BID PRN #20 tablet. 12/25/19 Unknown Rx Allergies Allergy/AdvReac Type Severity Reaction Status Date / Time No Known Allergies Allergy Unverified 01/04/20 17:21 ED Review of Systems ROS: Stated complaint: DIABETES Other details as noted in HPI Comment: All other systems reviewed and negative Constitutional: denies: chills, fever Respiratory: denies: cough, shortness of breath, SOB with exertion, SOB at rest Cardiovascular: denies: chest pain, palpitations Gastrointestinal: abdominal pain, nausea, vomiting. denies: diarrhea, constipation, hematemesis, melena, hematochezia Musculoskeletal: denies: back pain Neurological: weakness (Generalized.). denies: headache, numbness, paresthesias, confusion, abnormal gait ED Past Medical Hx - Past Medical History Previous Medical History?: Yes Hx Congestive Heart Failure: Yes Hx Diabetes: Yes (Type I) Hx Asthma: Yes Hx COPD: No Hx HIV: No Additional medical history: Gastroparesis - Surgical History Past Surgical History?: No Hx Open Heart Surgery: No Hx Cholecystectomy: No Hx Appendectomy: No Hx Breast Surgery: No - Social History Smoking Status: Never Smoker Substance Use Type: None - Medications Home Medications: Home Medications Medication Instructions Recorded Confirmed Last Taken Type Insulin Glargine,Hum.rec.anlog 24 units SUB-Q HS #1 vial 10/08/18 01/02/20 Unknown Rx [Lantus] Insulin Lispro [HumaLOG VIAL] 0 units SQ AC #1 vial 10/08/18 01/02/20 Unknown Rx Ondansetron [Zofran ODT TAB] 8 mg PO Q8H PRN #90 tab.rapdis 10/08/18 01/02/20 Unknown Rx Isadora Root [Isadora] 250 mg PO QID PRN #30 capsule 11/06/19 01/02/20 Unknown Rx Pantoprazole [Protonix TAB] 40 mg PO QDAY #30 tablet 11/06/19 01/02/20 Unknown Rx Promethazine [Phenergan] 25 mg HI Q6HR PRN #15 supp.rect 11/06/19 01/02/20 Unknown Rx Cyclobenzaprine [Flexeril] 10 mg PO BID PRN #12 tablet 12/25/19 01/02/20 Unknown Rx Naproxen [EC-Naproxen] 500 mg PO BID PRN #20 tablet.dr 12/25/19 01/02/20 Unknown Rx ED Physical Exam - General Limitations: No Limitations General appearance: alert, in distress - Head Head exam: Present: atraumatic, normocephalic, normal inspection - ENT ENT exam: Present: mucous membranes dry - Neck Neck exam: Present: normal inspection, full ROM. Absent: tenderness, meningismus, lymphadenopathy, thyromegaly - Respiratory Respiratory exam: Present: normal lung sounds bilaterally - Cardiovascular Cardiovascular Exam: Present: tachycardia - GI/Abdominal GI/Abdominal exam: Present: soft, tenderness, normal bowel sounds. Absent: distended, guarding, rebound, rigid, organomegaly, mass, bruit, pulsatile mass, hernia - Extremities Exam Extremities exam: Present: normal inspection, full ROM, normal capillary refill. Absent: pedal edema, calf tenderness - Back Exam Back exam: Present: normal inspection, full ROM. Absent: CVA tenderness (R), CVA tenderness (L) - Neurological Exam Neurological exam: Present: alert, oriented X3, CN II-XII intact, normal gait, reflexes normal. Absent: motor sensory deficit - Psychiatric Psychiatric exam: Present: normal mood, anxious - Skin Skin exam: Present: warm, dry, intact ED Course Vital Signs 04/19/20 04/20/20 23:41 07:57 Temperature 98.6 F Pulse Rate 105 H Respiratory 18 18 Rate Blood Pressure 142/69 O2 Sat by Pulse 99 98 Oximetry ED Medical Decision Making - Lab Data Result diagrams: 04/20/20 06:51 04/20/20 06:51 - Radiology Data Radiology results: report reviewed - Medical Decision Making Mr. Leone is a 29 years old male type 1 diabetes, noncompliant with his insulin. Patient stated that last time he took insulin was 1 month ago. Patient was seen here yesterday in the ER diagnosed with DKA and recommended to be admitted to the hospital however patient was discharged after being evaluated by hospitalist. Patient returned back to the ER stating that his symptoms is getting worse and he became more diaphoretic and continued to vomit. Patient still denying any fever or chills. Patient is complaining of abdominal pain. No chest pain or shortness of breath. Patient received Reglan for nausea and vomiting. Patient started on normal saline. Insulin drip restarted. Patient anion gap is 34 indicating significant DKA. Patient white blood cells increased to 25,000 with diffusely tender abdomen. Patient received Zosyn and a CT abdomen and pelvis showed no acute abnormalities. Patient had a chest x-ray yesterday which was negative for infection also a negative UA. I discussed the patient with Dr. Weldon, he agreed to admit the patient to the intensive care unit for further management. Critical Care Time: Yes Critical care time in (mins) excluding proc time.: 30 Critical care attestation.: If time is entered above; I have spent that time in minutes in the direct care of this critically ill patient, excluding procedure time. ED Disposition Clinical Impression: DKA (diabetic ketoacidoses), Acute nausea with nonbilious vomiting, Abdominal pain Disposition: DC-09 OP ADMIT IP TO THIS HOSP Is pt being admited?: Yes Condition: Stable Instructions: Diabetic Ketoacidosis (ED) Referrals: PRIMARY CARE, [Primary Care Provider] - 3-5 Days
[2020-04-20] MEDS ORDERED: INSULIN REGULAR, HUMAN 100 UNITS in SODIUM CHLORIDE 0.9% 99 ML IV SCH ×2 (07:00→16:01)
[2020-04-20 08:46] LABS: Hematocrit 41.3 % (35.5-45.6); Mean Corpuscular HGB Conc 32 % (32-34); Mean Corpuscular Volume 95 fl (84-94); Platelet Count 232 K/mm3 (140-440); Red Blood Count 4.33 M/mm3 (3.65-5.03); Red Cell Distribution Width 13.8 % (13.2-15.2)
[2020-04-20] MEDS ORDERED: PIPERACILLIN/TAZOBACTAM 3.375 3.375 GM/50 ML BAG IV ONE (08:51)
--- NOTE | 2020-04-20 08:56 | Cat Scan Report ---
CT ABDOMEN AND PELVIS WITH CONTRAST INDICATION / CLINICAL INFORMATION: abdominal pain. TECHNIQUE: Axial CT images were obtained through the abdomen and pelvis after IV contrast. All CT scans at this location are performed using CT dose reduction for ALARA by means of automated exposure control. COMPARISON: 01/02/2020. FINDINGS: LOWER CHEST: No significant abnormality. LIVER: No significant abnormality. GALLBLADDER: No significant abnormality. BILE DUCTS: No significant abnormality. PANCREAS: No significant abnormality. SPLEEN: No significant abnormality. ADRENALS: No significant abnormality. RIGHT KIDNEY / URETER: No significant abnormality. LEFT KIDNEY / URETER: No significant abnormality. STOMACH / SMALL BOWEL: No significant abnormality. COLON: No significant abnormality. APPENDIX: No significant abnormality. PERITONEUM: No free fluid. No free air. No fluid collection. LYMPH NODES: No significant adenopathy. AORTA / ARTERIES: No significant abnormality. IVC / VEINS: No significant abnormalit URINARY BLADDER: Distended urinary bladder. REPRODUCTIVE ORGANS: No significant abnormality. ADDITIONAL FINDINGS: None. SKELETAL SYSTEM: No significant abnormality. IMPRESSION: 1. No significant abnormality. No significant interval change since 01/02/2020. Signer Name: Win Cai MD Signed: 04/20/2020 8:51 AM Workstation Name: [id number]
[2020-04-20 08:59] LABS: BUN/Creatinine Ratio 17; Blood Urea Nitrogen 19 mg/dL (9-20); Calcium 9.7 mg/dL (8.4-10.2); Hemolysis Index 11
[2020-04-20 09:27] LABS: Anisocytosis 1+; Band Neutrophils # (Manual) 0.3 K/mm3; Basophils % (Manual) 0 % (0.0-1.8); Burr Cells 1+; Eosinophils % (Manual) 0 % (0.0-4.3); Platelet Estimate Consistent w Auto; Poikilocytosis 1+; Total Cells Counted 100
[2020-04-20] MEDS ORDERED: SODIUM CHLORIDE 0.9% 1000 ML 1,000 ML IV SCH (10:00)
[2020-04-20] MEDS ORDERED: SODIUM CHLORIDE 0.9% 1000 ML 1,000 ML ONE (10:01)
[2020-04-20 10:47] LABS: BUN/Creatinine Ratio 18; Blood Urea Nitrogen 21 mg/dL (9-20); Calcium 9.3 mg/dL (8.4-10.2); Hemolysis Index 10
--- NOTE | 2020-04-20 11:19 | History and Physical Report ---
History of Present Illness Date of examination: 04/20/20 Date of admission: 04/20/20 09:05 Chief complaint: DKA History of present illness: Mr. Leone is a 29 years old male type 1 diabetes, noncompliant with his insulin. Patient stated that last time he took insulin was 1 month ago. Patient was seen here yesterday in the ER diagnosed with DKA and recommended to be admitted to the hospital however patient was discharged after being evaluated by hospitalist. Patient returned back to the ER stating that his symptoms is getting worse and he became more diaphoretic and continued to vomit. Patient still denying any fever or chills. Patient is complaining of abdominal pain. No chest pain or shortness of breath. Patient had a previous admission for DKA on December of this year Past History Past Medical History: diabetes Past Surgical History: No surgical history Social history: no significant social history Family history: no significant family history Medications and Allergies Allergies Allergy/AdvReac Type Severity Reaction Status Date / Time No Known Allergies Allergy Unverified 01/04/20 17:21 Home Medications Medication Instructions Recorded Confirmed Last Taken Type Insulin Glargine,Hum.rec.anlog 24 units SUB-Q HS #1 vial 10/08/18 01/02/20 Unknown Rx [Lantus] Insulin Lispro [HumaLOG VIAL] 0 units SQ AC #1 vial 10/08/18 01/02/20 Unknown Rx Ondansetron [Zofran ODT TAB] 8 mg PO Q8H PRN #90 tab.rapdis 10/08/18 01/02/20 Unknown Rx Isadora Root [Isadora] 250 mg PO QID PRN #30 capsule 11/06/19 01/02/20 Unknown Rx Pantoprazole [Protonix TAB] 40 mg PO QDAY #30 tablet 11/06/19 01/02/20 Unknown Rx Promethazine [Phenergan] 25 mg VA Q6HR PRN #15 supp.rect 11/06/19 01/02/20 Unknown Rx Cyclobenzaprine [Flexeril] 10 mg PO BID PRN #12 tablet 12/25/19 01/02/20 Unknown Rx Naproxen [EC-Naproxen] 500 mg PO BID PRN #20 tablet. 12/25/19 01/02/20 Unknown Rx Active Meds: Active Medications Dextrose (D50w (25gm) Syringe) 0 ml IV Q30MIN PRN; Protocol PRN Reason: Hypoglycemia Insulin Human Regular 100 (units/ Sodium Chloride) 100 mls @ 1 mls/hr IV TITR DARVIN; Protocol Last Titration: 04/20/20 10:29 Dose: 7 units/hr, 7 mls/hr Documented by: Sodium Chloride (Nacl 0.9% 1000 Ml) 1,000 mls @ 150 mls/hr IV DIRECT DARVIN Last Admin: 04/20/20 10:11 Dose: 150 mls/hr Documented by: Review of Systems All systems: negative Exam - Constitutional Vitals: Temp Pulse Resp BP Pulse Ox 98.6 F 105 H 18 108/43 99 04/19/20 23:41 04/19/20 23:41 04/20/20 07:57 04/20/20 10:30 04/20/20 10:30 General appearance: Present: no acute distress, well-nourished - EENT Eyes: Present: PERRL ENT: hearing intact, clear oral mucosa - Neck Neck: Present: supple, normal ROM - Respiratory Respiratory effort: normal Respiratory: bilateral: CTA - Cardiovascular Heart Sounds: Present: S1 & S2. Absent: rub, click - Extremities Extremities: pulses symmetrical, No edema Peripheral Pulses: within normal limits - Abdominal General gastrointestinal: Present: soft, non-tender, non-distended, normal bowel sounds Male genitourinary: Present: normal - Integumentary Integumentary: Present: clear, warm, dry - Musculoskeletal Musculoskeletal: gait normal, strength equal bilaterally - Psychiatric Psychiatric: appropriate mood/affect, intact judgment & insight - Neurologic Neurologic: CNII-XII intact, moves all extremities Results - Labs CBC & Chem 7: 04/20/20 06:51 04/20/20 09:34 Labs: Laboratory Last Values WBC 25.8 K/mm3 (4.5-11.0) H 04/20/20 06:51 RBC 4.33 M/mm3 (3.65-5.03) 04/20/20 06:51 Hgb 13.0 gm/dl (11.8-15.2) 04/20/20 06:51 Hct 41.3 % (35.5-45.6) 04/20/20 06:51 MCV 95 fl (84-94) H 04/20/20 06:51 MCH 30 pg (28-32) 04/20/20 06:51 MCHC 32 % (32-34) 04/20/20 06:51 RDW 13.8 % (13.2-15.2) 04/20/20 06:51 Plt Count 232 K/mm3 (140-440) 04/20/20 06:51 Add Manual Diff Complete 04/20/20 06:51 Total Counted 100 08 06:51 Seg Neuts % (Manual) 87.0 % (40.0-70.0) H 04/20/20 06:51 Band Neutrophils % 1.0 % 04/20/20 06:51 Lymphocytes % (Manual) 6.0 % (13.4-35.0) L 04/20/20 06:51 Reactive Lymphs % (Man) 0 % 04/20/20 06:51 Monocytes % (Manual) 6.0 % (0.0-7.3) 04/20/20 06:51 Eosinophils % (Manual) 0 % (0.0-4.3) 04/20/20 06:51 Basophils % (Manual) 0 % (0.0-1.8) 04/20/20 06:51 Metamyelocytes % 0 % 04/20/20 06:51 Myelocytes % 0 % 04/20/20 06:51 Promyelocytes % 0 % 04/20/20 06:51 Blast Cells % 0 % 04/20/20 06:51 Nucleated RBC % Not Reportable 04/20/20 06:51 Seg Neutrophils # Man 22.4 K/mm3 (1.8-7.7) H 04/20/20 06:51 Band Neutrophils # 0.3 K/mm3 04/20/20 06:51 Lymphocytes # (Manual) 1.5 K/mm3 (1.2-5.4) 04/20/20 06:51 Abs React Lymphs (Man) 0.0 K/mm3 04/20/20 06:51 Monocytes # (Manual) 1.5 K/mm3 (0.0-0.8) H 04/20/20 06:51 Eosinophils # (Manual) 0.0 K/mm3 (0.0-0.4) 04/20/20 06:51 Basophils # (Manual) 0.0 K/mm3 (0.0-0.1) 04/20/20 06:51 Metamyelocytes # 0.0 K/mm3 04/20/20 06:51 Myelocytes # 0.0 K/mm3 04/20/20 06:51 Promyelocytes # 0.0 K/mm3 04/20/20 06:51 Blast Cells # 0.0 K/mm3 04/20/20 06:51 WBC Morphology Not Reportable 04/20/20 06:51 Hypersegmented Neuts Not Reportable 04/20/20 06:51 Hyposegmented Neuts Not Reportable 04/20/20 06:51 Hypogranular Neuts Not Reportable 04/20/20 06:51 Smudge Cells Not Reportable 04/20/20 06:51 Toxic Granulation Not Reportable 04/20/20 06:51 Toxic Vacuolation Not Reportable 04/20/20 06:51 Dohle Bodies Not Reportable 04/20/20 06:51 Pelger-Huet Anomaly Not Reportable 04/20/20 06:51 Ada Rods Not Reportable 04/20/20 06:51 Platelet Estimate Consistent w auto 04/20/20 06:51 Clumped Platelets Not Reportable 04/20/20 06:51 Plt Clumps, EDTA Not Reportable 04/20/20 06:51 Large Platelets Not Reportable 04/20/20 06:51 Giant Platelets Not Reportable 04/20/20 06:51 Platelet Satelliting Not Reportable 04/20/20 06:51 Plt Morphology Comment Not Reportable 04/20/20 06:51 RBC Morphology Not Reportable 04/20/20 06:51 Dimorphic RBCs Not Reportable 04/20/20 06:51 Polychromasia Not Reportable 04/20/20 06:51 Hypochromasia Not Reportable 04/20/20 06:51 Poikilocytosis 1+ 04/20/20 06:51 Anisocytosis 1+ 04/20/20 06:51 Microcytosis Not Reportable 04/20/20 06:51 Macrocytosis Not Reportable 04/20/20 06:51 Spherocytes Not Reportable 04/20/20 06:51 Pappenheimer Bodies Not Reportable 04/20/20 06:51 Sickle Cells Not Reportable 04/20/20 06:51 Target Cells Not Reportable 04/20/20 06:51 Tear Drop Cells Not Reportable 04/20/20 06:51 Ovalocytes Not Reportable 04/20/20 06:51 Helmet Cells Not Reportable 04/20/20 06:51 [place] Bodies Not Reportable 04/20/20 06:51 [place] Rings Not Reportable 04/20/20 06:51 [place] Cells 1+ 04/20/20 06:51 Bite Cells Not Reportable 04/20/20 06:51 Crenated Cell Not Reportable 04/20/20 06:51 Elliptocytes Not Reportable 04/20/20 06:51 Acanthocytes (Spur) Not Reportable 04/20/20 06:51 Rouleaux Not Reportable 04/20/20 06:51 Hemoglobin C Crystals Not Reportable 04/20/20 06:51 Schistocytes Not Reportable 04/20/20 06:51 Malaria parasites Not Reportable 04/20/20 06:51 Alec Bodies Not Reportable 04/20/20 06:51 Hem Pathologist Commnt No 04/20/20 06:51 Sodium 136 mmol/L (137-145) L 04/20/20 09:34 Potassium 4.6 mmol/L (3.6-5.0) 04/20/20 09:34 Chloride 100.9 mmol/L (98-107) 04/20/20 09:34 Carbon Dioxide 13 mmol/L (22-30) L 04/20/20 09:34 Anion Gap 27 mmol/L 04/20/20 09:34 BUN 21 mg/dL (9-20) H 04/20/20 09:34 Creatinine 1.2 mg/dL (0.8-1.3) 04/20/20 09:34 Estimated GFR > 60 ml/min 04/20/20 09:34 BUN/Creatinine Ratio 18 % 04/20/20 09:34 Glucose 397 mg/dL (75-100) H 04/20/20 09:34 POC Glucose 378 (70-105) H 04/20/20 10:42 Calcium 9.3 mg/dL (8.4-10.2) 04/20/20 09:34 Phosphorus 6.00 mg/dL (2.5-4.5) H D 04/20/20 06:51 Magnesium 1.80 mg/dL (1.7-2.3) 04/20/20 06:51 Total Creatine Kinase 275 units/L (55-170) H 04/20/20 03:12 Salicylates < 0.3 mg/dL (2.8-20.0) L 04/20/20 03:12 Acetaminophen 5.0 ug/mL (10.0-30.0) L 04/20/20 03:12 Plasma/Serum Alcohol < 0.01 % (0-0.07) 04/20/20 03:12 Assessment and Plan Assessment and plan: DKA. Patient will be placed on the DKA pathway and started on IV insulin drip. Continue to monitor BMP and anion gap closely. Gastritis. Continue Protonix daily Medical noncompliance. Patient will be counseled on importance of medications when stable.
[2020-04-20] MEDS ORDERED: ONDANSETRON 4 MG/2 ML INJ IV PRN (11:22)
[2020-04-20] MEDS ORDERED: ACETAMINOPHEN 325 MG TAB PO PRN (11:22)
[2020-04-20 11:41] LABS: BUN/Creatinine Ratio 17; Blood Urea Nitrogen 20 mg/dL (9-20); Calcium 9.1 mg/dL (8.4-10.2); Hemolysis Index 19
[2020-04-20 13:28] LABS: BUN/Creatinine Ratio 16; Blood Urea Nitrogen 19 mg/dL (9-20); Calcium 9.4 mg/dL (8.4-10.2); Hemolysis Index 5
[2020-04-20] MEDS ORDERED: D5W/0.45% NACL/KCL 20 MEQ 20 MEQ/1,000 ML BAG IV ONE ×2 (14:02→21:45)
[2020-04-20] MEDS: D5W/0.45% NACL/KCL 20 MEQ 20 MEQ/1,000 ML BAG IV SCH ×2 (14:09→22:09)
[2020-04-20] MEDS ORDERED: ONDANSETRON 4 MG/2 ML INJ ONE (14:16)
[2020-04-20 14:31] LABS: BUN/Creatinine Ratio 16; Blood Urea Nitrogen 18 mg/dL (9-20); Calcium 9.4 mg/dL (8.4-10.2); Hemolysis Index 121
[2020-04-20] MEDS ORDERED: D5W/0.45% NACL/KCL 20 MEQ 20 MEQ/1,000 ML BAG IV SCH (15:00)
[2020-04-20 15:18] LABS: BUN/Creatinine Ratio 16; Blood Urea Nitrogen 18 mg/dL (9-20); Calcium 9.1 mg/dL (8.4-10.2); Hemolysis Index 37
[2020-04-20 17:51] LABS: BUN/Creatinine Ratio 18; Blood Urea Nitrogen 18 mg/dL (9-20); Calcium 9.2 mg/dL (8.4-10.2); Hemolysis Index 44
[2020-04-20] MEDS ORDERED: METOCLOPRAMIDE 10 MG/2 ML INJ ONE (19:45)
[2020-04-20] MEDS: METOCLOPRAMIDE 10 MG/2 ML INJ IV PRN (19:45)
[2020-04-20 20:02] LABS: BUN/Creatinine Ratio 15; Blood Urea Nitrogen 17 mg/dL (9-20); Calcium 9.1 mg/dL (8.4-10.2); Hemolysis Index 31
[2020-04-20] MEDS ORDERED: ENOXAPARIN 40 MG/0.4 ML INJ SUB-Q ONE (21:42)
[2020-04-20] MEDS: ENOXAPARIN 40 MG/0.4 ML INJ SUB-Q SCH (22:10)
[2020-04-21 00:15] LABS: BUN/Creatinine Ratio 15; Blood Urea Nitrogen 15 mg/dL (9-20); Calcium 9.1 mg/dL (8.4-10.2); Hemolysis Index 10
[2020-04-21] MEDS ORDERED: ACETAMINOPHEN 325 MG TAB ONE (02:28)
[2020-04-21] MEDS ORDERED: METOCLOPRAMIDE 10 MG/2 ML INJ ONE (02:29)
[2020-04-21] MEDS: METOCLOPRAMIDE 10 MG/2 ML INJ IV PRN ×2 (02:41→13:37)
[2020-04-21 06:18] LABS: BUN/Creatinine Ratio 13; Blood Urea Nitrogen 13 mg/dL (9-20); Hemolysis Index 7
[2020-04-21 08:26] LABS: BUN/Creatinine Ratio 14; Blood Urea Nitrogen 13 mg/dL (9-20); Calcium 8.8 mg/dL (8.4-10.2); Hemolysis Index 6
[2020-04-21 09:42] LABS: Basophils % (Auto) 0.2 % (0.0-1.8); Eosinophils % (Auto) 0.1 % (0.0-4.3); Hematocrit 37.5 % (35.5-45.6); Hemoglobin 12.1 gm/dl (11.8-15.2); Lymphocytes # (Auto) 1.3 K/mm3 (1.2-5.4); Lymphocytes % (Auto) 8.9 % (13.4-35.0); Mean Corpuscular HGB Conc 32 % (32-34); Mean Corpuscular Volume 94 fl (84-94); Monocytes # (Auto) 1.1 K/mm3 (0.0-0.8); Monocytes % (Auto) 7.6 % (0.0-7.3); Platelet Count 166 K/mm3 (140-440); Red Blood Count 3.99 M/mm3 (3.65-5.03); Red Cell Distribution Width 13.1 % (13.2-15.2)
[2020-04-21] MEDS ORDERED: INSULIN GLARGINE 100 UNITS/ML SUB-Q ONE (10:00)
[2020-04-21] MEDS ORDERED: DEXTROSE 50% IN WATER (25GM) 50 ML SYRINGE IV PRN (10:00)
[2020-04-21] MEDS: INSULIN LISPRO 100 UNIT/ML VIAL 3 mL SUB-Q SCH ×3 (10:29→21:55)
--- NOTE | 2020-04-21 11:04 | Event Note ---
Date: 04/21/20 Anion Gap has closed. Needs to have long acting insulin started and to be fed. Does not require ICU care anymore. Will sign off.
--- NOTE | 2020-04-21 12:34 | Progress Note ---
Assessment and Plan Assessment and plan: 29-year-old male with a medical history of DM type I on insulin presenting with chief complaint of nausea, vomiting abdominal pain. In the ER, patient was found to have DKA and was started on insulin drip. His labs showed leukocytosis with a left shift. Patient was started on antibiotics. 04/21. Patient seen and examined at bedside this morning. He feels much better. Anion gap is closed so the patient has been started on Lantus and lispro sliding scale. Check hemoglobin A1c - Patient Problems (1) Acute nausea with nonbilious vomiting Current Visit: Yes Status: Acute Plan to address problem: Likely from DKA-now off insulin drip. Continue Lantus and sliding scale. Needs endocrinology follow-up at discharge Continue PPI (2) DKA (diabetic ketoacidoses) Current Visit: Yes Status: Acute Plan to address problem: Now off insulin drip. Lantus 40 units in a.m. and a sliding scale [high dose] Patient takes 70/30. 30 units in a.m. and p.m. and a sliding scale at noon. Patient is on empirical antibiotics for elevated white count -no obvious of infection seen at this time. Elevated bicarb most likely from stress Follow-up endocrine at discharge (3) Gastritis Current Visit: No Status: Acute Plan to address problem: Continue PPI. (4) Uncontrolled diabetes mellitus Current Visit: No Status: Acute Plan to address problem: Management as per above (5) DVT prophylaxis Current Visit: Yes Status: Acute Plan to address problem: Encourage ambulation History Interval history: See assessment and plan Hospitalist Physical - Constitutional Vitals: Temp Pulse Resp BP Pulse Ox 98.8 F 93 H 18 123/77 100 04/21/20 05:00 04/21/20 05:00 04/20/20 07:57 04/21/20 07:00 04/21/20 07:00 General appearance: Present: no acute distress, well-nourished - EENT Eyes: Present: PERRL, EOM intact - Neck Neck: Present: supple, normal ROM - Respiratory Respiratory: bilateral: CTA - Cardiovascular Rhythm: regular Heart Sounds: Present: S1 & S2 - Extremities Extremities: no ischemia - Abdominal General gastrointestinal: soft, non-tender, distended - Psychiatric Psychiatric: appropriate mood/affect - Neurologic Neurologic: CNII-XII intact Results - Labs CBC & Chem 7: 08/11/20 08:49 04/21/20 06:52 Labs: Laboratory Last Values WBC 15.0 K/mm3 (4.5-11.0) H 04/21/20 08:49 RBC 3.99 M/mm3 (3.65-5.03) 04/21/20 08:49 Hgb 12.1 gm/dl (11.8-15.2) 04/21/20 08:49 Hct 37.5 % (35.5-45.6) 04/21/20 08:49 MCV 94 fl (84-94) 04/21/20 08:49 MCH 30 pg (28-32) 04/21/20 08:49 MCHC 32 % (32-34) 04/21/20 08:49 RDW 13.1 % (13.2-15.2) L 04/21/20 08:49 Plt Count 166 K/mm3 (140-440) 04/21/20 08:49 Lymph % (Auto) 8.9 % (13.4-35.0) L 04/21/20 08:49 Payne % (Auto) 7.6 % (0.0-7.3) H 04/21/20 08:49 Eos % (Auto) 0.1 % (0.0-4.3) 04/21/20 08:49 Baso % (Auto) 0.2 % (0.0-1.8) 04/21/20 08:49 Lymph # 1.3 K/mm3 (1.2-5.4) 04/21/20 08:49 Payne # 1.1 K/mm3 (0.0-0.8) H 04/21/20 08:49 Eos # 0.0 K/mm3 (0.0-0.4) 04/21/20 08:49 Baso # 0.0 K/mm3 (0.0-0.1) 04/21/20 08:49 Add Manual Diff Complete 04/20/20 06:51 Total Counted 100 04/20/20 06:51 Seg Neutrophils % 83.2 % (40.0-70.0) H 04/21/20 08:49 Seg Neuts % (Manual) 87.0 % (40.0-70.0) H 04/20/20 06:51 Band Neutrophils % 1.0 % 04/20/20 06:51 Lymphocytes % (Manual) 6.0 % (13.4-35.0) L 04/20/20 06:51 Reactive Lymphs % (Man) 0 % 04/20/20 06:51 Monocytes % (Manual) 6.0 % (0.0-7.3) 04/20/20 06:51 Eosinophils % (Manual) 0 % (0.0-4.3) 04/20/20 06:51 Basophils % (Manual) 0 % (0.0-1.8) 04/20/20 06:51 Metamyelocytes % 0 % 04/20/20 06:51 Myelocytes % 0 % 04/20/20 06:51 Promyelocytes % 0 % 04/20/20 06:51 Blast Cells % 0 % 04/20/20 06:51 Nucleated RBC % Not Reportable 04/20/20 06:51 Seg Neutrophils # 12.5 K/mm3 (1.8-7.7) H 04/21/20 08:49 Seg Neutrophils # Man 22.4 K/mm3 (1.8-7.7) H 04/20/20 06:51 Band Neutrophils # 0.3 K/mm3 04/20/20 06:51 Lymphocytes # (Manual) 1.5 K/mm3 (1.2-5.4) 04/20/20 06:51 Abs React Lymphs (Man) 0.0 K/mm3 04/20/20 06:51 Monocytes # (Manual) 1.5 K/mm3 (0.0-0.8) H 04/20/20 06:51 Eosinophils # (Manual) 0.0 K/mm3 (0.0-0.4) 04/20/20 06:51 Basophils # (Manual) 0.0 K/mm3 (0.0-0.1) 04/20/20 06:51 Metamyelocytes # 0.0 K/mm3 04/20/20 06:51 Myelocytes # 0.0 K/mm3 04/20/20 06:51 Promyelocytes # 0.0 K/mm3 04/20/20 06:51 Blast Cells # 0.0 K/mm3 04/20/20 06:51 WBC Morphology Not Reportable 04/20/20 06:51 Hypersegmented Neuts Not Reportable 04/20/20 06:51 Hyposegmented Neuts Not Reportable 04/20/20 06:51 Hypogranular Neuts Not Reportable 04/20/20 06:51 Smudge Cells Not Reportable 04/20/20 06:51 Toxic Granulation Not Reportable 04/20/20 06:51 Toxic Vacuolation Not Reportable 04/20/20 06:51 Dohle Bodies Not Reportable 04/20/20 06:51 Pelger-Huet Anomaly Not Reportable 04/20/20 06:51 Ada Rods Not Reportable 04/20/20 06:51 Platelet Estimate Consistent w auto 04/20/20 06:51 Clumped Platelets Not Reportable 04/20/20 06:51 Plt Clumps, EDTA Not Reportable 04/20/20 06:51 Large Platelets Not Reportable 04/20/20 06:51 Giant Platelets Not Reportable 04/20/20 06:51 Platelet Satelliting Not Reportable 04/20/20 06:51 Plt Morphology Comment Not Reportable 04/20/20 06:51 RBC Morphology Not Reportable 04/20/20 06:51 Dimorphic RBCs Not Reportable 04/20/20 06:51 Polychromasia Not Reportable 04/20/20 06:51 Hypochromasia Not Reportable 04/20/20 06:51 Poikilocytosis 1+ 04/20/20 06:51 Anisocytosis 1+ 04/20/20 06:51 Microcytosis Not Reportable 04/20/20 06:51 Macrocytosis Not Reportable 04/20/20 06:51 Spherocytes Not Reportable 04/20/20 06:51 Pappenheimer Bodies Not Reportable 04/20/20 06:51 Sickle Cells Not Reportable 04/20/20 06:51 Target Cells Not Reportable 04/20/20 06:51 Tear Drop Cells Not Reportable 04/20/20 06:51 Ovalocytes Not Reportable 04/20/20 06:51 Helmet Cells Not Reportable 04/20/20 06:51 [place] Bodies Not Reportable 04/20/20 06:51 [place] Rings Not Reportable 04/20/20 06:51 Chaka Cells 1+ 04/20/20 06:51 Bite Cells Not Reportable 04/20/20 06:51 Crenated Cell Not Reportable 04/20/20 06:51 Elliptocytes Not Reportable 04/20/20 06:51 Acanthocytes (Spur) Not Reportable 04/20/20 06:51 Rouleaux Not Reportable 04/20/20 06:51 Hemoglobin C Crystals Not Reportable 04/20/20 06:51 Schistocytes Not Reportable 04/20/20 06:51 Malaria parasites Not Reportable 04/20/20 06:51 Alec Bodies Not Reportable 04/20/20 06:51 Hem Pathologist Commnt No 04/20/20 06:51 Sodium 137 mmol/L (137-145) 04/21/20 06:52 Potassium 3.6 mmol/L (3.6-5.0) 04/21/20 06:52 Chloride 106.2 mmol/L (98-107) 04/21/20 06:52 Carbon Dioxide 21 mmol/L (22-30) L 04/21/20 06:52 Anion Gap 13 mmol/L 04/21/20 06:52 BUN 13 mg/dL (9-20) 04/21/20 06:52 Creatinine 0.9 mg/dL (0.8-1.3) 04/21/20 06:52 Estimated GFR > 60 ml/min 04/21/20 06:52 BUN/Creatinine Ratio 14 % 04/21/20 06:52 Glucose 151 mg/dL (75-100) H 04/21/20 06:52 POC Glucose 149 (70-105) H 04/21/20 10:42 Calcium 8.8 mg/dL (8.4-10.2) 04/21/20 06:52 Phosphorus 1.80 mg/dL (2.5-4.5) L D 04/20/20 12:51 Magnesium 1.70 mg/dL (1.7-2.3) 04/20/20 12:51 Total Creatine Kinase 275 units/L (55-170) H 04/20/20 03:12 Salicylates < 0.3 mg/dL (2.8-20.0) L 04/20/20 03:12 Acetaminophen 5.0 ug/mL (10.0-30.0) L 04/20/20 03:12 Plasma/Serum Alcohol < 0.01 % (0-0.07) 04/20/20 03:12 Microbiology: Microbiology 04/20/20 09:34 Peripheral/Venous Blood Culture - Preliminary NO GROWTH AFTER 24 HOURS 04/20/20 09:34 Peripheral/Venous Blood Culture - Preliminary NO GROWTH AFTER 24 HOURS Active Medications - Current Medications Current Medications: Generic Name Dose Route Start Last Admin Trade Name Freq PRN Reason Stop Dose Admin Acetaminophen 650 mg 04/20/20 11:22 04/21/20 02:41 Tylenol PO 650 mg Q4H PRN Administration Pain MILD(1-3)/Fever >100.5/TILLEY Dextrose 50 ml 04/21/20 10:00 D50w (25gm) Syringe IV Q30MIN PRN Hypoglycemia Protocol Enoxaparin Sodium 40 mg 04/20/20 22:00 04/20/20 22:10 Enoxaparin SUB-Q 40 mg QDAY@2200 DARVIN Administration Sodium Chloride 1,000 mls @ 150 mls/hr 04/20/20 10:00 04/20/20 14:09 Nacl 0.9% 1000 Ml IV 0 mls/hr DIRECT DARVIN Infusion Potassium Chloride/Dextrose/Sod Cl 20 meq in 1,000 mls @ 125 mls/hr 04/20/20 14:10 04/20/20 22:09 D5w/0.45% Nacl/Kcl 20 Meq IV 125 mls/hr DIRECT DARVIN Administration Insulin Human Lispro 0 unit 04/21/20 10:00 04/21/20 10:29 Humalog SUB-Q Not Given Q6H DARVIN Protocol Metoclopramide HCl 10 mg 04/20/20 19:41 04/21/20 02:41 Reglan IV 10 mg Q6H PRN Administration Nausea And Vomiting Ondansetron HCl 4 mg 04/20/20 11:22 04/20/20 14:15 Zofran IV 4 mg Q8H PRN Administration Nausea And Vomiting Sodium Chloride 10 ml 04/20/20 22:00 04/21/20 10:08 Sodium Chloride Flush Syringe 10 Ml IV Not Given BID DARVIN Sodium Chloride 10 ml 04/20/20 11:22 Sodium Chloride Flush Syringe 10 Ml IV PRN PRN LINE FLUSH
[2020-04-21 17:03] LABS: BUN/Creatinine Ratio 12; Blood Urea Nitrogen 11 mg/dL (9-20); Calcium 8.9 mg/dL (8.4-10.2); Hemolysis Index 8
[2020-04-21] MEDS: ENOXAPARIN 40 MG/0.4 ML INJ SUB-Q SCH (21:55)
[2020-04-22] MEDS: INSULIN LISPRO 100 UNIT/ML VIAL 3 mL SUB-Q SCH ×8 (06:47→23:17)
[2020-04-22 08:41] LABS: BUN/Creatinine Ratio 13; Blood Urea Nitrogen 10 mg/dL (9-20); Calcium 8.7 mg/dL (8.4-10.2); Hemolysis Index 15
[2020-04-22] MEDS: INSULIN GLARGINE 100 UNITS/ML SUB-Q SCH (10:05)
--- NOTE | 2020-04-22 11:26 | Progress Note ---
Assessment and Plan Assessment and plan: 29-year-old male with a medical history of DM type I on insulin presenting with chief complaint of nausea, vomiting abdominal pain. In the ER, patient was found to have DKA and was started on insulin drip. His labs showed leukocytosis with a left shift. Patient was started on antibiotics. 04/21. Patient seen and examined at bedside this morning. He feels much better. Anion gap is closed so the patient has been started on Lantus and lispro sliding scale. Check hemoglobin A1c 04/22. He feels better today. He is on Lantus and lispro. BMP ordered this morning. Procalcitonin slightly elevated at 0.79. Treat with empirical amoxicillin for GI coverage. Continue to monitor blood glucose closely. He is hemoglobin A1c 7.1. Needs to follow-up with commercial electrician at discharge - Patient Problems (1) Acute nausea with nonbilious vomiting Current Visit: Yes Status: Acute Plan to address problem: Likely has infectious gastroenteritis given elevated procalcitonin. Start amoxicillin clavulanic acid twice daily for 7 days Needs endocrinology follow-up at discharge Continue PPI (2) DKA (diabetic ketoacidoses) Current Visit: Yes Status: Acute Plan to address problem: Now off insulin drip. Continue Lantus and lispro Patient takes 70/30. 30 units in a.m. and p.m. and a sliding scale at noon - will resume at discharge Follow-up endocrine at discharge (3) Gastritis Current Visit: No Status: Acute Plan to address problem: Continue PPI. (4) Uncontrolled diabetes mellitus Current Visit: No Status: Acute Plan to address problem: Management as per above (5) DVT prophylaxis Current Visit: Yes Status: Acute Plan to address problem: Encourage ambulation (6) Gastroenteritis Current Visit: Yes Status: Acute Plan to address problem: This has improved Augmentin twice daily for 7 to 10 days History Interval history: See assessment and plan Hospitalist Physical - Constitutional Vitals: Temp Pulse Resp BP Pulse Ox 98.9 F 80 16 122/69 98 04/22/20 04:50 04/22/20 04:50 04/22/20 04:50 04/22/20 04:50 04/22/20 04:50 General appearance: Present: no acute distress, well-nourished - EENT Eyes: Present: PERRL - Neck Neck: Present: supple, normal ROM - Respiratory Respiratory effort: normal Respiratory: bilateral: CTA - Cardiovascular Rhythm: regular Heart Sounds: Present: S1 & S2 - Extremities Extremities: no ischemia, No edema - Abdominal General gastrointestinal: soft, non-tender - Integumentary Integumentary: Present: clear - Psychiatric Psychiatric: appropriate mood/affect - Neurologic Neurologic: CNII-XII intact Results - Labs CBC & Chem 7: 04/21/20 08:49 04/22/20 08:01 Labs: Laboratory Last Values WBC 15.0 K/mm3 (4.5-11.0) H 04/21/20 08:49 RBC 3.99 M/mm3 (3.65-5.03) 04/21/20 08:49 Hgb 12.1 gm/dl (11.8-15.2) 04/21/20 08:49 Hct 37.5 % (35.5-45.6) 04/21/20 08:49 MCV 94 fl (84-94) 04/21/20 08:49 MCH 30 pg (28-32) 04/21/20 08:49 MCHC 32 % (32-34) 04/21/20 08:49 RDW 13.1 % (13.2-15.2) L 04/21/20 08:49 Plt Count 166 K/mm3 (140-440) 04/21/20 08:49 Lymph % (Auto) 8.9 % (13.4-35.0) L 04/21/20 08:49 [place] % (Auto) 7.6 % (0.0-7.3) H 04/21/20 08:49 Eos % (Auto) 0.1 % (0.0-4.3) 04/21/20 08:49 Baso % (Auto) 0.2 % (0.0-1.8) 04/21/20 08:49 Lymph # 1.3 K/mm3 (1.2-5.4) 04/21/20 08:49 [place] # 1.1 K/mm3 (0.0-0.8) H 04/21/20 08:49 Eos # 0.0 K/mm3 (0.0-0.4) 04/21/20 08:49 Baso # 0.0 K/mm3 (0.0-0.1) 04/21/20 08:49 Add Manual Diff Complete 04/20/20 06:51 Total Counted 100 04/20/20 06:51 Seg Neutrophils % 83.2 % (40.0-70.0) H 04/21/20 08:49 Seg Neuts % (Manual) 87.0 % (40.0-70.0) H 04/20/20 06:51 Band Neutrophils % 1.0 % 04/20/20 06:51 Lymphocytes % (Manual) 6.0 % (13.4-35.0) L 04/20/20 06:51 Reactive Lymphs % (Man) 0 % 04/20/20 06:51 Monocytes % (Manual) 6.0 % (0.0-7.3) 04/20/20 06:51 Eosinophils % (Manual) 0 % (0.0-4.3) 04/20/20 06:51 Basophils % (Manual) 0 % (0.0-1.8) 04/20/20 06:51 Metamyelocytes % 0 % 04/20/20 06:51 Myelocytes % 0 % 04/20/20 06:51 Promyelocytes % 0 % 04/20/20 06:51 Blast Cells % 0 % 04/20/20 06:51 Nucleated RBC % Not Reportable 04/20/20 06:51 Seg Neutrophils # 12.5 K/mm3 (1.8-7.7) H 04/21/20 08:49 Seg Neutrophils # Man 22.4 K/mm3 (1.8-7.7) H 04/20/20 06:51 Band Neutrophils # 0.3 K/mm3 04/20/20 06:51 Lymphocytes # (Manual) 1.5 K/mm3 (1.2-5.4) 04/20/20 06:51 Abs React Lymphs (Man) 0.0 K/mm3 04/20/20 06:51 Monocytes # (Manual) 1.5 K/mm3 (0.0-0.8) H 04/20/20 06:51 Eosinophils # (Manual) 0.0 K/mm3 (0.0-0.4) 04/20/20 06:51 Basophils # (Manual) 0.0 K/mm3 (0.0-0.1) 04/20/20 06:51 Metamyelocytes # 0.0 K/mm3 04/20/20 06:51 Myelocytes # 0.0 K/mm3 04/20/20 06:51 Promyelocytes # 0.0 K/mm3 04/20/20 06:51 Blast Cells # 0.0 K/mm3 04/20/20 06:51 WBC Morphology Not Reportable 04/20/20 06:51 Hypersegmented Neuts Not Reportable 04/20/20 06:51 Hyposegmented Neuts Not Reportable 04/20/20 06:51 Hypogranular Neuts Not Reportable 04/20/20 06:51 Smudge Cells Not Reportable 04/20/20 06:51 Toxic Granulation Not Reportable 04/20/20 06:51 Toxic Vacuolation Not Reportable 04/20/20 06:51 Dohle Bodies Not Reportable 04/20/20 06:51 Pelger-Huet Anomaly Not Reportable 04/20/20 06:51 Ada Rods Not Reportable 04/20/20 06:51 Platelet Estimate Consistent w auto 04/20/20 06:51 Clumped Platelets Not Reportable 04/20/20 06:51 Plt Clumps, EDTA Not Reportable 04/20/20 06:51 Large Platelets Not Reportable 04/20/20 06:51 Giant Platelets Not Reportable 04/20/20 06:51 Platelet Satelliting Not Reportable 04/20/20 06:51 Plt Morphology Comment Not Reportable 04/20/20 06:51 RBC Morphology Not Reportable 04/20/20 06:51 Dimorphic RBCs Not Reportable 04/20/20 06:51 Polychromasia Not Reportable 04/20/20 06:51 Hypochromasia Not Reportable 04/20/20 06:51 Poikilocytosis 1+ 04/20/20 06:51 Anisocytosis 1+ 04/20/20 06:51 Microcytosis Not Reportable 04/20/20 06:51 Macrocytosis Not Reportable 04/20/20 06:51 Spherocytes Not Reportable 04/20/20 06:51 Pappenheimer Bodies Not Reportable 04/20/20 06:51 Sickle Cells Not Reportable 04/20/20 06:51 Target Cells Not Reportable 04/20/20 06:51 Tear Drop Cells Not Reportable 04/20/20 06:51 Ovalocytes Not Reportable 04/20/20 06:51 Helmet Cells Not Reportable 04/20/20 06:51 [place] Bodies Not Reportable 04/20/20 06:51 [place] Rings Not Reportable 04/20/20 06:51 Chaka Cells 1+ 04/20/20 06:51 Bite Cells Not Reportable 04/20/20 06:51 Crenated Cell Not Reportable 04/20/20 06:51 Elliptocytes Not Reportable 04/20/20 06:51 Acanthocytes (Spur) Not Reportable 04/20/20 06:51 Rouleaux Not Reportable 04/20/20 06:51 Hemoglobin C Crystals Not Reportable 04/20/20 06:51 Schistocytes Not Reportable 04/20/20 06:51 Malaria parasites Not Reportable 04/20/20 06:51 Alec Bodies Not Reportable 04/20/20 06:51 Hem Pathologist Commnt No 04/20/20 06:51 Sodium 138 mmol/L (137-145) 04/22/20 08:01 Potassium 3.6 mmol/L (3.6-5.0) 04/22/20 08:01 Chloride 102.4 mmol/L (98-107) 04/22/20 08:01 Carbon Dioxide 21 mmol/L (22-30) L 04/22/20 08:01 Anion Gap 18 mmol/L 04/22/20 08:01 BUN 10 mg/dL (9-20) 04/22/20 08:01 Creatinine 0.8 mg/dL (0.8-1.3) 04/22/20 08:01 Estimated GFR > 60 ml/min 04/22/20 08:01 BUN/Creatinine Ratio 13 % 04/22/20 08:01 Glucose 209 mg/dL (75-100) H 04/22/20 08:01 POC Glucose 217 (70-105) H 04/21/20 21:30 Hemoglobin A1c 7.1 % (4-6) H 04/22/20 05:48 Calcium 8.7 mg/dL (8.4-10.2) 04/22/20 08:01 Phosphorus 1.80 mg/dL (2.5-4.5) L D 04/20/20 12:51 Magnesium 1.70 mg/dL (1.7-2.3) 04/20/20 12:51 Total Creatine Kinase 275 units/L (55-170) H 04/20/20 03:12 Procalcitonin 0.79 ng/mL (<0.15) 04/22/20 05:48 Salicylates < 0.3 mg/dL (2.8-20.0) L 04/20/20 03:12 Acetaminophen 5.0 ug/mL (10.0-30.0) L 04/20/20 03:12 Plasma/Serum Alcohol < 0.01 % (0-0.07) 04/20/20 03:12 Microbiology: Microbiology 04/20/20 09:34 Peripheral/Venous Blood Culture - Preliminary NO GROWTH AFTER 48 HOURS 04/20/20 09:34 Peripheral/Venous Blood Culture - Preliminary NO GROWTH AFTER 48 HOURS Torres/IV: Voiding Method Toilet IV Catheter Type [Left Hand] INT / Saline Lock IV Catheter Type [Right INT / Saline Lock Antecubital] Active Medications - Current Medications Current Medications: Generic Name Dose Route Start Last Admin Trade Name Freq PRN Reason Stop Dose Admin Acetaminophen 650 mg 04/20/20 11:22 04/21/20 02:41 Tylenol PO 650 mg Q4H PRN Administration Pain MILD(1-3)/Fever >100.5/TILLEY Amoxicillin/Clavulanate Potassium 1 each 04/22/20 12:00 Augmentin 875 Mg PO Q12HR DARVIN Dextrose 50 ml 04/21/20 10:00 D50w (25gm) Syringe IV Q30MIN PRN Hypoglycemia Protocol Enoxaparin Sodium 40 mg 04/20/20 22:00 04/21/20 21:55 Enoxaparin SUB-Q 40 mg QDAY@2200 DARVIN Administration Sodium Chloride 1,000 mls @ 150 mls/hr 04/20/20 10:00 04/20/20 14:09 Nacl 0.9% 1000 Ml IV 0 mls/hr DIRECT DARVIN Infusion Potassium Chloride/Dextrose/Sod Cl 20 meq in 1,000 mls @ 125 mls/hr 04/20/20 14:10 04/20/20 22:09 D5w/0.45% Nacl/Kcl 20 Meq IV 125 mls/hr DIRECT DARVIN Administration Insulin Glargine 30 units 04/22/20 08:00 04/22/20 10:05 Lantus SUB-Q 30 units QAMDIAB DARVIN Administration Insulin Human Lispro 4 unit 04/22/20 11:30 Humalog SUB-Q ACHS DARVIN Insulin Human Lispro 0 unit 04/22/20 08:00 04/22/20 10:07 Humalog SUB-Q 4 unit ACHS DARVIN Administration Protocol Metoclopramide HCl 10 mg 04/20/20 19:41 04/21/20 13:37 Reglan IV 10 mg Q6H PRN Administration Nausea And Vomiting Ondansetron HCl 4 mg 04/20/20 11:22 04/20/20 14:15 Zofran IV 4 mg Q8H PRN Administration Nausea And Vomiting Sodium Chloride 10 ml 04/20/20 22:00 04/22/20 10:11 Sodium Chloride Flush Syringe 10 Ml IV 10 ml BID DARVIN Administration Sodium Chloride 10 ml 04/20/20 11:22 Sodium Chloride Flush Syringe 10 Ml IV PRN PRN LINE FLUSH Nutrition/Malnutrition Assess - Dietary Evaluation Nutrition/Malnutrition Findings: Nutrition Notes Start: 04/21/20 12:47 Freq: Status: Active Protocol: Document 04/21/20 12:47 LM (Rec: 04/21/20 12:49 LM [id number]) Nutrition Notes Need for Assessment generated from: MD Order Initial or Follow up Brief Note Current Diagnosis Diabetes Other Pertinent Diagnosis DKA Subjective/Other Information MD consult for diet education. Pt is in the ED. Nutrition Intervention Follow-Up By: 04/23/20 Additional Comments F/U for diet education
[2020-04-22] MEDS: AMOXICILLIN/K CLAV 875/125MG TAB PO SCH ×2 (13:02→23:17)
[2020-04-22] MEDS: ENOXAPARIN 40 MG/0.4 ML INJ SUB-Q SCH (23:16)
--- NOTE | 2020-04-23 09:27 | Discharge Summary ---
Providers - Providers Date of Admission: 04/20/20 09:05 Date of discharge: 04/23/20 Attending physician: LENA CINTRON 04/21/20 09:30 Consult to Dietitian/Nutrition [CONS] Routine Physician Instructions: Reason For Exam: Reason for Consult: Diet education Primary care physician: TAP BUILDER Hospitalization Condition: Stable Hospital course: 29-year-old male with a medical history of DM type I on insulin presenting with chief complaint of nausea, vomiting abdominal pain. In the ER, patient was found to have DKA and was started on insulin drip. His labs showed leukocytosis with a left shift. Patient was started on antibiotics. 04/21. Patient seen and examined at bedside this morning. He feels much better. Anion gap is closed so the patient has been started on Lantus and lispro sliding scale. Check hemoglobin A1c 04/22. He feels better today. He is on Lantus and lispro. BMP ordered this morning. Procalcitonin slightly elevated at 0.79. Treat with empirical amoxicillin for GI coverage. Continue to monitor blood glucose closely. He is hemoglobin A1c 7.1. Needs to follow-up with computer assembler at discharge. 04/23. Patient seen and examined at bedside this morning. He feels much better today. Had an episode of hypoglycemia today . I will discharge him on his usual home dose of insulin and have him follow-up with his pcp/computer assembler. He will continue to monitor his blood glucose closely. He will also be on Augmentin for 7 days. He is currently stable to be discharged today Disposition: -01 TO HOME OR SELFCARE - Discharge Diagnoses (1) Acute nausea with nonbilious vomiting Status: Acute (2) DKA (diabetic ketoacidoses) Status: Acute (3) Gastritis Status: Acute (4) Uncontrolled diabetes mellitus Status: Acute (5) DVT prophylaxis Status: Acute (6) Gastroenteritis Status: Acute Core Measure Documentation - Palliative Care Palliative Care/ Comfort Measures: Not Applicable - Core Measures Any of the following diagnoses?: none Exam - Constitutional Vitals: Temp Pulse Resp BP Pulse Ox 97.4 F L 73 18 110/46 97 04/23/20 04:51 04/23/20 04:51 04/23/20 04:51 04/23/20 04:51 04/23/20 04:51 General appearance: Present: no acute distress, well-nourished - EENT Eyes: Present: PERRL ENT: hearing intact, clear oral mucosa - Neck Neck: Present: supple, normal ROM - Respiratory Respiratory effort: normal Respiratory: bilateral: CTA - Cardiovascular Heart Sounds: Present: S1 & S2. Absent: rub, click - Extremities Extremities: pulses symmetrical, No edema Peripheral Pulses: within normal limits - Abdominal General gastrointestinal: Present: soft, non-tender, non-distended, normal bowel sounds Male genitourinary: Present: normal - Integumentary Integumentary: Present: clear, warm, dry - Musculoskeletal Musculoskeletal: gait normal, strength equal bilaterally - Psychiatric Psychiatric: appropriate mood/affect, intact judgment & insight - Neurologic Neurologic: CNII-XII intact, moves all extremities Plan Diet: diabetic Follow up with: PRIMARY CARE, [Primary Care Provider] - 3-5 Days Prescriptions: Amoxicillin/K Clav Tab [Augmentin 875MG TAB] 1 each PO Q12HR #12 tablet
[2020-04-23] MEDS: INSULIN GLARGINE 100 UNITS/ML SUB-Q SCH (09:35)
[2020-04-23] MEDS: AMOXICILLIN/K CLAV 875/125MG TAB PO SCH (09:36)
[2020-04-23] MEDS: INSULIN LISPRO 100 UNIT/ML VIAL 3 mL SUB-Q SCH ×3 (09:36→13:04)
[2020-04-23 13:10] VITALS: BP 136/84
== END 2020-04-23 13:21 | disposition home or self-care (01) | DRG 639 ==
LOC: ED 22:32 → CC1 04-20 09:05 → 3A 04-21 12:19
PROVIDERS: ADMIT Internal Medicine; ATTEND Internal Medicine
DX: E10.10 Type 1 diabetes mellitus with ketoacidosis without coma (principal); K29.70 Gastritis, unspecified, without bleeding; R11.2 Nausea with vomiting, unspecified; K52.9 Noninfective gastroenteritis and colitis, unspecified; Z79.4 Long term (current) use of insulin; Z91.14 Patient's other noncompliance with medication regimen
CPT/HCPCS: 36415; 74177; 80048; 80320; 82550; 82962; 83036; 83735; 84100; 84145; 85007; 85025; 87040; 93005; G0378; G0480; J1200; J1650; J1815; J2405; J2543; J2765; J7030; Q9967

== ENCOUNTER 2020-08-11 08:52 | Emergency (ER) | payer SELFPAY ==
[2020-08-11 09:23] VITALS: BP 125/70
[2020-08-11 09:53] LABS: Basophils % (Auto) 0.4 % (0.0-1.8); Eosinophils % (Auto) 0.4 % (0.0-4.3); Hematocrit 42.7 % (35.5-45.6); Hemoglobin 14.3 gm/dl (11.8-15.2); Lymphocytes # (Auto) 1.9 K/mm3 (1.2-5.4); Lymphocytes % (Auto) 28.9 % (13.4-35.0); Mean Corpuscular HGB Conc 33 % (32-34); Mean Corpuscular Volume 90 fl (84-94); Monocytes # (Auto) 0.5 K/mm3 (0.0-0.8); Monocytes % (Auto) 8.1 % (0.0-7.3); Platelet Count 197 K/mm3 (140-440); Red Blood Count 4.74 M/mm3 (3.65-5.03); Red Cell Distribution Width 12.5 % (13.2-15.2)
[2020-08-11 10:28] LABS: Alanine Aminotransferase 34 units/L (7-56); Albumin 4.4 g/dL (3.9-5); BUN/Creatinine Ratio 15; Blood Urea Nitrogen 17 mg/dL (9-20); Calcium 9.8 mg/dL (8.4-10.2); Hemolysis Index 20
--- NOTE | 2020-08-11 12:55 | Emergency Department Report ---
<GERALD CONNOR - Last Filed: 08/11/20 17:29> ED N/V/D HPI - General Chief complaint: Nausea/Vomiting/Diarrhea Stated complaint: ABD PAIN/VOMITING Time Seen by Provider: 08/11/20 12:38 Source: patient Mode of arrival: Wheelchair Limitations: No Limitations - History of Present Illness Initial comments: 22-year-old male with a past medical history of type 1 diabetes currently on insulin and a history of gastroparesis presents to the ER today complaint of severe periumbilical abdominal pain with associated nausea, vomiting and diarrhea. Patient states that his symptoms started this morning. Patient states that he vomited "a lot" since this morning. He also reports that he has had diarrhea "all morning". Patient denies eating any bad foods yesterday or this morning. He denies being on any antibiotics recently. He denies any recent travel out of the country. He denies any ill contacts. He denies any history of known peptic ulcer disease, alcohol abuse, or tobacco use. He reports no associated chest pain or shortness of breath. He denies any fever or chills. Patient states that he has been compliant with taking his diabetic medication. He also states that he used to be on Reglan but he ran out about 2 weeks ago. MD complaint: nausea, vomiting, diarrhea, abdominal pain -: Sudden (This morning) - Related Data Home Medications Medication Instructions Recorded Confirmed Last Taken Insulin NPH Hum/Reg Insulin Hm 30 units SQ AC 04/20/20 04/20/20 Unknown [Novolin 70-30 100 Unit/ml Vial] Metoclopramide [Reglan TAB] 10 mg PO QID PRN 04/20/20 04/20/20 Unknown Previous Rx's Medication Instructions Recorded Last Taken Type Amoxicillin/K Clav Tab [Augmentin 1 each PO Q12HR #12 tablet 04/23/20 Unknown Rx 875MG TAB] Dicyclomine [Bentyl] 10 mg PO QID #20 capsule 08/11/20 Unknown Rx Ondansetron [Zofran Odt] 4 mg PO Q8HR PRN #15 tab.rapdis 08/11/20 Unknown Rx Allergies Allergy/AdvReac Type Severity Reaction Status Date / Time No Known Allergies Allergy Unverified 01/04/20 17:21 ED Review of Systems Comment: All other systems reviewed and negative Constitutional: denies: chills, fever Eyes: denies: eye pain, eye discharge, vision change ENT: denies: ear pain, throat pain Respiratory: denies: cough, shortness of breath, wheezing Cardiovascular: denies: chest pain, palpitations Gastrointestinal: abdominal pain, nausea, vomiting, diarrhea Genitourinary: denies: urgency, dysuria Musculoskeletal: denies: back pain, joint swelling, arthralgia Skin: denies: rash, lesions Neurological: denies: headache, weakness, paresthesias Psychiatric: denies: anxiety, depression Hematological/Lymphatic: denies: easy bleeding, easy bruising ED Past Medical Hx - Past Medical History Previous Medical History?: Yes Hx Congestive Heart Failure: Yes Hx Diabetes: Yes Hx Asthma: Yes Hx COPD: No Hx HIV: No Additional medical history: Gastroparesis - Surgical History Past Surgical History?: No Hx Open Heart Surgery: No Hx Cholecystectomy: No Hx Appendectomy: No Hx Breast Surgery: No - Social History Smoking Status: Never Smoker Substance Use Type: None - Medications Home Medications: Home Medications Medication Instructions Recorded Confirmed Last Taken Type Insulin NPH Hum/Reg Insulin Hm 30 units SQ AC 04/20/20 04/20/20 Unknown History [Novolin 70-30 100 Unit/ml Vial] Metoclopramide [Reglan TAB] 10 mg PO QID PRN 04/20/20 04/20/20 Unknown History Amoxicillin/K Clav Tab [Augmentin 1 each PO Q12HR #12 tablet 04/23/20 Unknown Rx 875MG TAB] Dicyclomine [Bentyl] 10 mg PO QID #20 capsule 08/11/20 Unknown Rx Ondansetron [Zofran Odt] 4 mg PO Q8HR PRN #15 tab.rapdis 08/11/20 Unknown Rx ED Physical Exam - General Limitations: No Limitations General appearance: alert, in distress (Patient appears to be in pain distress, holding emesis bag is full of emesis.) - Head Head exam: Present: atraumatic, normocephalic, normal inspection - Eye Eye exam: Present: normal appearance - Respiratory Respiratory exam: Present: normal lung sounds bilaterally. Absent: respiratory distress - Cardiovascular Cardiovascular Exam: Present: regular rate, normal rhythm, normal heart sounds - GI/Abdominal GI/Abdominal exam: Present: soft, tenderness (Patient reports tenderness to palpation with light palpation of the abdomen mainly in the upper abdomen and epigastric area with voluntary guarding). Absent: distended - Back Exam Back exam: Present: normal inspection, full ROM - Neurological Exam Neurological exam: Present: alert, oriented X3, CN II-XII intact - Psychiatric Psychiatric exam: Present: agitated, anxious - Skin Skin exam: Present: intact ED Course - Reevaluation(s) Reevaluation #1: 08/11/20 14:22 Patient states he is still not feeling better after reglan and morphine. He reports he is still nauseous though he has not vomitted since I last saw him amd he still having abdominal pain. IV toradol, pepcid, zofran ordered. 08/11/20 14:23 Reevaluation #2: Patient was sleeping when I walked in room. Easily arousable. When he woke up he still complaining of nausea and abdominal pain. he appears uncomfortable but overall not toxic. Repeat Abdominal exam showed soft diffusely tender abdomen with voluntary guarding. patient had not had no vomiting since meds given in ED and no diarrhea. Pt wanted to try PO fluids and another round of zofran ordered. 08/11/20 16:48 Pt now states he took 2 sips of the water but does not think he can tolerate more. Patient wanting to be admitted. Discussed case with Dr Baldwin, labs including xray unremarkable. Based on labs no indication for admission. Recommend doing CT abdomen and pelvis if patient still complaining of pain and trying IV ativan, benadryl or haldol to see if that might help with symptoms. And then re-eval after CT and meds. 08/11/20 16:54 When I went to discuss plan with patient, he reported vomiting on the floor (there was small amt of non bloody emsis on the floor). 08/11/20 16:55 ED Medical Decision Making - Lab Data Result diagrams: 08/11/20 09:31 08/11/20 09:31 - Radiology Data Radiology results: report reviewed - Medical Decision Making 2026 Case/labs discussed with Dr Baldwin; CT ordered and pending. ED Disposition Clinical Impression: Gastroparesis due to DM, Vomiting and diarrhea, Abdominal pain Disposition: - TO HOME OR SELFCARE Condition: Stable Instructions: Abdominal Pain, Adult, Nausea and Vomiting, Adult, Gastroparesis, Diabetes Mellitus Type 2 in Adults (ED) Additional Instructions: Increase your oral rehydration. Take your medications as prescribed. I have given you a referral for [facility] to follow-up regarding the abdominal pain, nausea and vomiting. Return to the emergency department with any worsening of your symptoms, new or concerning symptoms not addressed during this current emergency department visit, or with any acute distress. Prescriptions: Dicyclomine [Bentyl] 10 mg PO QID #20 capsule Ondansetron [Zofran Odt] 4 mg PO Q8HR PRN #15 tab.rapdis PRN Reason: Nausea Referrals: [facility] [Provider Group] - 3-5 Days PRIMARY CARE, [Primary Care Provider] - 3-5 Days <CHARLETTE BALDWIN - Last Filed: 08/11/20 19:13> ED Review of Systems ROS: Stated complaint: ABD PAIN/VOMITING Other details as noted in HPI ED Course Vital Signs 08/11/20 09:18 Temperature 98.3 F Pulse Rate 70 Respiratory 17 Rate Blood Pressure 125/70 O2 Sat by Pulse 100 Oximetry - Reevaluation(s) Reevaluation #4: 08/11/20 19:11 Lab Results 08/11/20 08/11/20 08/11/20 Range/Units 09:25 09:30 09:30 WBC (4.5-11.0) K/mm3 RBC (3.65-5.03) M/mm3 Hgb (11.8-15.2) gm/dl Hct (35.5-45.6) % MCV (84-94) fl MCH (28-32) pg MCHC (32-34) % RDW (13.2-15.2) % Plt Count (140-440) K/mm3 Lymph % (Auto) (13.4-35.0) % [place] % (Auto) (0.0-7.3) % Eos % (Auto) (0.0-4.3) % Baso % (Auto) (0.0-1.8) % Lymph # (Auto) (1.2-5.4) K/mm3 [place] # (Auto) (0.0-0.8) K/mm3 Eos # (Auto) (0.0-0.4) K/mm3 Baso # (Auto) (0.0-0.1) K/mm3 Seg Neutrophils % (40.0-70.0) % Seg Neutrophils # (1.8-7.7) K/mm3 Sodium (137-145) mmol/L Potassium (3.6-5.0) mmol/L Chloride (98-107) mmol/L Carbon Dioxide (22-30) mmol/L Anion Gap mmol/L BUN (9-20) mg/dL Creatinine (0.8-1.3) mg/dL Estimated GFR ml/min BUN/Creatinine Ratio % Glucose (75-100) mg/dL POC Glucose 276 H (70-105) mg/dL Ketones Quantitative Negative (Negative) Calcium (8.4-10.2) mg/dL Total Bilirubin (0.1-1.2) mg/dL AST (5-40) units/L ALT (7-56) units/L Alkaline Phosphatase (35-129) units/L Total Protein (6.3-8.2) g/dL Albumin (3.9-5) g/dL Albumin/Globulin Ratio % Lipase 9 L (13-60) units/L 08/11/20 08/11/20 Range/Units 09:31 09:31 WBC 6.7 (4.5-11.0) K/mm3 RBC 4.74 (3.65-5.03) M/mm3 Hgb 14.3 (11.8-15.2) gm/dl Hct 42.7 (35.5-45.6) % MCV 90 (84-94) fl MCH 30 (28-32) pg MCHC 33 (32-34) % RDW 12.5 L (13.2-15.2) % Plt Count 197 (140-440) K/mm3 Lymph % (Auto) 28.9 (13.4-35.0) % [place] % (Auto) 8.1 H (0.0-7.3) % Eos % (Auto) 0.4 (0.0-4.3) % Baso % (Auto) 0.4 (0.0-1.8) % Lymph # (Auto) 1.9 (1.2-5.4) K/mm3 [place] # (Auto) 0.5 (0.0-0.8) K/mm3 Eos # (Auto) 0.0 (0.0-0.4) K/mm3 Baso # (Auto) 0.0 (0.0-0.1) K/mm3 Seg Neutrophils % 62.2 (40.0-70.0) % Seg Neutrophils # 4.1 (1.8-7.7) K/mm3 Sodium 137 (137-145) mmol/L Potassium 4.2 (3.6-5.0) mmol/L Chloride 102.5 (98-107) mmol/L Carbon Dioxide 28 (22-30) mmol/L Anion Gap 11 mmol/L BUN 17 (9-20) mg/dL Creatinine 1.1 (0.8-1.3) mg/dL Estimated GFR > 60 ml/min BUN/Creatinine Ratio 15 % Glucose 323 H (75-100) mg/dL POC Glucose (70-105) mg/dL Ketones Quantitative (Negative) Calcium 9.8 (8.4-10.2) mg/dL Total Bilirubin 0.30 (0.1-1.2) mg/dL AST 30 (5-40) units/L ALT 34 (7-56) units/L Alkaline Phosphatase 107 (35-129) units/L Total Protein 7.7 (6.3-8.2) g/dL Albumin 4.4 (3.9-5) g/dL Albumin/Globulin Ratio 1.3 % Lipase (13-60) units/L ED Medical Decision Making - Lab Data Result diagrams: 08/11/20 09:31 08/11/20 09:31 - Radiology Data Radiology results: report reviewed CT abdomen pelvis w con INDICATION: Severe abd pain, vomiting, diarrhea. COMPARISON: April 20 TECHNIQUE: Abdominal and pelvic CT exam performed. All CT scans at this location are performed using CT dose reduction for ALARA by means of automated exposure control. FINDINGS: CT ABDOMEN and PELVIS: Lung Bases: No significant abnormality. Liver: No significant abnormality. Biliary: No significant abnormality. Spleen: No significant abnormality. Pancreas: No significant abnormality. Adrenals: No significant abnormality. Kidneys: No significant abnormality. Lymphatics: No lymphadenopathy. Vasculature: No significant abnormality. Bowel: No significant abnormality. Normal appendix. Pelvis: No significant abnormality. Osseous Structures: No aggressive osseous lesion. Additional Findings: None IMPRESSION: 1. No acute abnormality of the abdomen or pelvis. - Medical Decision Making I reviewed the labs, ED course, CT results, and I went to see the patient. The patient's labs are mostly unremarkable except for hyperglycemia. However there is no elevated anion gap and the patient does not appear in diabetic ketoacidosis. Despite the nausea and vomiting, there is no significant electrolyte abnormalities or signs of systemic dehydration. CT scan of the abdomen pelvis does not show any acute abdominal or pelvic pathology. All this appears most consistent with diabetic gastroparesis but the patient has had in the past. When I went to reevaluate the patient he was laying in the bed, resting comfortably, texting on his phone, and does not appear in any acute distress. There is no emesis basin to be cleaned out and he does not appear to have vomited in the past 2 hours. He was able to pass an oral challenge. His vital signs have been reassuring throughout his ED course including being afebrile. For all these reasons patient appears safe for discharge home at this time. He has been given a prescription for Zofran ODT, Bentyl, and outpatient referral for gastroenterology. Critical Care Time: No Critical care attestation.: If time is entered above; I have spent that time in minutes in the direct care of this critically ill patient, excluding procedure time. ED Disposition Is pt being admited?: No
[2020-08-11] MEDS ORDERED: MORPHINE 4 MG/1 ML INJ IV ONE (13:32)
[2020-08-11] MEDS ORDERED: METOCLOPRAMIDE 10 MG/2 ML INJ IV ONE (13:32)
[2020-08-11] MEDS ORDERED: SODIUM CHLORIDE 0.9% 1000 ML 1,000 ML IV ONE ×2 (14:08→16:53)
[2020-08-11] MEDS ORDERED: ONDANSETRON 4 MG/2 ML INJ IV ONE ×2 (14:21→16:04)
[2020-08-11] MEDS ORDERED: KETOROLAC 30 MG/1 ML INJ IV ONE (14:21)
[2020-08-11] MEDS ORDERED: FAMOTIDINE 20 MG/2 ML INJ IV ONE (14:21)
--- NOTE | 2020-08-11 14:49 | XRay Report ---
ABDOMEN 4 VIEW(S) INDICATION / CLINICAL INFORMATION: severe epigastric pain. COMPARISON: CT 04/20/2020 FINDINGS: TUBES / LINES: None. BOWEL GAS PATTERN: There is a paucity of small bowel gas which limits evaluation of the small bowel g as pattern. Accounting for this, no dilated loops of small bowel are seen. Colon is unremarkable. FREE AIR / EXTRALUMINAL GAS: None seen. ADDITIONAL FINDINGS: There is no significant abnormality on the included chest radiograph. IMPRESSION: 1. No radiographic evidence of acute abdomen. Signer Name: Doe Cummings MD Signed: 08/11/2020 2:45 PM Workstation Name: [id number]
[2020-08-11] MEDS ORDERED: LORazepam 2 MG/ML VIAL IV ONE (16:47)
--- NOTE | 2020-08-11 18:24 | Cat Scan Report ---
CT abdomen pelvis w con INDICATION: Severe abd pain, vomiting, diarrhea. COMPARISON: April 20 TECHNIQUE: Abdominal and pelvic CT exam performed. All CT scans at this location are performed using CT dose reduction for ALARA by means of automated exposure control. FINDINGS: CT ABDOMEN and PELVIS: Lung Bases: No significant abnormality. Liver: No significant abnormality. Biliary: No significant abnormality. Spleen: No significant abnormality. Pancreas: No significant abnormality. Adrenals: No significant abnormality. Kidneys: No significant abnormality. Lymphatics: No lymphadenopathy. Vasculature: No significant abnormality. Bowel: No significant abnormality. Normal appendix. Pelvis: No significant abnormality. Osseous Structures: No aggressive osseous lesion. Additional Findings: None IMPRESSION: 1. No acute abnormality of the abdomen or pelvis. Signer Name: Lokesh Handley MD Signed: 08/11/2020 6:19 PM Workstation Name: [id number]
== END 2020-08-11 19:03 | disposition home or self-care (01) ==
LOC: ED 08:52
DX: E10.43 Type 1 diabetes mellitus with diabetic autonomic (poly)neuropathy (principal); K31.84 Gastroparesis; R10.33 Periumbilical pain; R19.7 Diarrhea, unspecified; R11.2 Nausea with vomiting, unspecified; I50.9 Heart failure, unspecified; J45.909 Unspecified asthma, uncomplicated; Z79.4 Long term (current) use of insulin; Z79.899 Other long term (current) drug therapy
CPT/HCPCS: 36415; 74022; 74177; 80053; 82010; 82962; 83690; 85025; 96361; 96374; 96375; 96376; 99285; J1885; J2060; J2270; J2405; J2765; J7030; Q9967